=== PATIENT | female | born 1965 | race Caucasian/White ===

== ENCOUNTER 2016-08-06 10:36 | Emergency (ER) | payer BC ==
[2016-08-06] MEDS ORDERED: Ipratropium 0.5MG/2.5ML NEB* 0.5 MG/2.5 ML NEB.SOLN INH ONE (10:38)
[2016-08-06] MEDS ORDERED: Albuterol 2.5 MG/3 ML NEB.SOL* (0.083%) INH ONE (10:38)
[2016-08-06] MEDS ORDERED: Albuterol/Ipratropium NEB.SOL* Albuterol 2.5 MG/Ipratropium 0.5 MG 3 ML ONE (10:42)
[2016-08-06 12:02] VITALS: BP 126/74
--- NOTE | 2016-08-06 12:50 | UC ---
Respiratory Complaint HPI - HPI Summary HPI Summary: 30 MINUTE ONSET OF SHORTNESS OF BREATH, WHEEZING COUGH. HAS COPD, HEAVY SMOKER. TRIED ALBUTEROL INHALER, WITH NO EFFECT - History of Current Complaint Chief Complaint: UCRespiratory Stated Complaint: SHORTNESS OF BREATH Time Seen by Provider: 08/06/16 10:49 Hx Obtained From: Patient Onset/Duration: Sudden Onset, Lasting Minutes, Still Present Timing: Constant Severity Currently: Severe Character: Cough: Nonproductive Alleviating Factors: Nothing Associated Signs And Symptoms: Positive: Wheezing, Hoarseness. Negative: Fever , Chills, Pleuritic Chest Pain, Calf Pain, Calf Swelling, URI, Nasal Congestion , Sinus Discomfort - Risk Factors Pulmonary Embolism Risk Factors: Smoking Cardiac Risk Factors: Smoking Pseudomonas Risk Factors: Negative Tuberculosis Risk Factors: Negative - Allergies/Home Medications Allergies/Adverse Reactions: Allergies Allergy/AdvReac Type Severity Reaction Status Date / Time No Known Allergies Allergy Verified 01/11/16 15:55 PMH/Surg Hx/FS Hx/Imm Hx Previously Healthy: Yes Endocrine History Of: Reports: Diabetes - Type 1 Denies: Thyroid Disease Cardiovascular History Of: Reports: Hypertension Denies: Cardiac Disorders Respiratory History Of: Reports: COPD, Asthma, Bronchitis - YEARLY GI/ History Of: Reports: Ulcer Cancer History Of: Denies: Breast Cancer - Surgical History Surgical History: Yes Surgery Procedure, Year, and Place: Skin graft 1975 [facility]. hysterectomy 2007 [facility]. RIGHT SHOULDER SURGERY 2009 [facility]. Bilateral Carpal tunnel, 2013. Shoulder 2014 - Family History Known Family History: Positive: Cardiac Disease, Hypertension, Diabetes - Social History Occupation: Employed Full-time Lives: With Family Alcohol Use: Weekly Alcohol Amount: 2-3 beers Substance Use Type: None Smoking Status (MU): Heavy Every Day Tobacco Smoker Type: Cigarettes Amount Used/How Often: 1/2 PPD Length of Time of Smoking/Using Tobacco: 20 - 30 years Have You Smoked in the Last Year: Yes Household Exposure Type: Cigarettes - Immunization History Most Recent Influenza Vaccination: 2016 Most Recent Tetanus Shot: unknown Most Recent Pneumonia Vaccination: never Review of Systems Constitutional: Negative Skin: Negative Eyes: Negative ENT: Negative Respiratory: Shortness Of Breath, Cough Cardiovascular: Negative Gastrointestinal: Negative Genitourinary: Negative Motor: Negative Neurovascular: Negative Musculoskeletal: Negative Neurological: Negative Psychological: Negative All Other Systems Reviewed And Are Negative: Yes Physical Exam Triage Information Reviewed: Yes Appearance: Well-Appearing, No Pain Distress, Well-Nourished Vital Signs: Initial Vital Signs Temp 97.9 F 08/06/16 11:55 Pulse 68 08/06/16 11:55 Resp 18 08/06/16 11:55 BP 126/74 08/06/16 11:55 Pulse Ox 98 08/06/16 11:55 Eye Exam: Normal Eyes: Positive: Conjunctiva Clear ENT Exam: Normal ENT: Positive: Normal ENT inspection, Hearing grossly normal, Pharynx normal, TMs normal Dental Exam: Normal Neck exam: Normal Neck: Positive: Supple, Nontender Respiratory: Positive: Normal breath sounds, No respiratory distress, No accessory muscle use, Wheezing Cardiovascular Exam: Normal Cardiovascular: Positive: RRR, No Murmur, Pulses Normal Abdominal Exam: Normal Abdomen Description: Positive: Nontender, No Organomegaly Musculoskeletal Exam: Normal Neurological Exam: Normal Psychological Exam: Normal Psychological: Positive: Normal Response To Family Skin Exam: Normal UC Diagnostic Evaluation - Laboratory O2 Sat by Pulse Oximetry: 98 Re-Evaluation - Re-Evaluation Second Eval Re-Evaluation Time: 11:40 Change: Improved Comment: IMPROVED AFTER ADMINISTRATION OF DUONEB Respiratory Course/Dx - Differential Dx/Diagnosis Differential Diagnosis/HQI/PQRI: Asthma, Exacerbation Of COPD, Laryngitis, Sinusitis Provider Diagnoses: ASTHMA EXACERBATION. COPD. TOBACCO ABUSE Discharge - Discharge Plan Condition: Stable Disposition: HOME Patient Education Materials: Asthma (ED), How to Stop Smoking (ED), COPD ( Chronic Obstructive Pulmonary Disease) (ED) Referrals: Dayanara RIGGS,Francheska Frey [Primary Care Provider] -
== END 2016-08-06 11:55 | disposition home or self-care (01) ==
LOC: UCEAST 10:36
DX: J45.901 Unspecified asthma with (acute) exacerbation (principal); J44.9 Chronic obstructive pulmonary disease, unspecified; E10.9 Type 1 diabetes mellitus without complications; Z96.41 Presence of insulin pump (external) (internal); F17.210 Nicotine dependence, cigarettes, uncomplicated
CPT/HCPCS: 99211; A9270-GY; G0463

== ENCOUNTER 2016-08-12 15:36 | Inpatient (IN) | payer BC ==
[2016-08-12] MEDS ORDERED: Ondansetron ODT TAB* 4 MG PO ONE (17:20)
[2016-08-12] MEDS ORDERED: NS 0.9% 1000 ML* 1,000 ML IV ONE (18:38)
[2016-08-12 18:46] LABS: Hematocrit 48 % (35-47); Hemoglobin 14.9 g/dl (12.0-16.0); Mean Corpuscular HGB Conc 31 g/dl (31-36); Mean Corpuscular Hemoglobin 29 pg (27-31); Mean Corpuscular Volume 95 fL (80-97); Mean Platelet Volume 11 um3 (7.4-10.4); Red Blood Count 5.07 10^6/ul (4.0-5.4); Red Cell Distribution Width 16 % (10.5-15)
[2016-08-12 18:48] LABS: Urine Bilirubin Negative (Negative); Urine Glucose 3+(>=500 mg/dL) (Negative); Urine Nitrite Negative (Negative)
[2016-08-12 18:57] LABS: Albumin 4.4 g/dL (3.2-5.2); Calcium 9.4 mg/dL (8.6-10.3); EGFR African American 74.6 (>60); Globulin 3.8 g/dL (2-4); Total Bilirubin 0.6 mg/dL (0.2-1.0); Total Protein 8.2 g/dL (6.4-8.9)
[2016-08-12 19:21] LABS: Potassium 5.4 mmol/L (3.5-5.0)
[2016-08-12] MEDS ORDERED: NS 0.9% 1000 ML* 3,000 ML IV ONE (19:28)
[2016-08-12] MEDS ORDERED: Ondansetron INJ* 2 MG/ML VIAL IV ONE (19:28)
[2016-08-12] MEDS ORDERED: Insulin REGULAR(*) 100 UNITS in NS 0.9% 100 ML* 100 ML IVPB ONE (19:29)
[2016-08-12 19:42] LABS: BUN/Creatinine Ratio 18.5 (8-20); EGFR African American 82.1 (>60); EGFR Non-African American 63.9 (>60)
[2016-08-12 19:44] LABS: Potassium 5.5 mmol/L (3.5-5.0)
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
[2016-08-12] MEDS ORDERED: Ondansetron INJ* 2 MG/ML VIAL IV PRN (20:25)
[2016-08-12] MEDS ORDERED: Albuterol 2.5 MG/3 ML NEB.SOL* (0.083%) INH PRN (20:25)
[2016-08-12] MEDS ORDERED: Melatonin (NF) 3 MG TAB PO PRN (20:25)
[2016-08-12] MEDS ORDERED: Nicotine Inhaler* 10 MG AMP INH PRN (20:25)
[2016-08-12] MEDS ORDERED: PROCHLORPERAZINE INJ 5 MG/ML 2 ML VIAL IV PRN (20:25)
[2016-08-12] MEDS ORDERED: Acetaminophen TAB* 325 MG PO PRN (20:25)
[2016-08-12] MEDS ORDERED: Insulin REGULAR(*) 1 UNITS UNIT IV PUSH ONE (20:49)
--- NOTE | 2016-08-12 20:56 | RAD ---
INDICATION: Cough COMPARISON: January 11, 2016 TECHNIQUE: An AP portable view obtained at 2046 hours is submitted. FINDINGS: Bones/Soft Tissues: There are no acute bony findings. Cardiomediastinal: The cardiomediastinal silhouette is normal. Lungs: There are no infiltrates. Pleura: There are no pleural effusions. Other: None IMPRESSION: NO ACTIVE DISEASE.
[2016-08-12] MEDS: Mometasone/Formoter 200/5 MDI INH SCH (21:00)
[2016-08-12] MEDS ORDERED: Insulin REGULAR(*) 100 UNITS in NS 0.9% 100 ML* 100 ML IV SCH (22:00)
[2016-08-12] MEDS ORDERED: Dextrose 50% Syringe 50 ML* 25 GM/50 ML SYRINGE IV PUSH ONE (22:40)
[2016-08-12] MEDS ORDERED: Dextrose 50% Syringe 50 ML* 25 GM/50 ML SYRINGE ONE (22:59)
[2016-08-12] MEDS: Pantoprazole IV* 40 MG IV SCH (23:27)
[2016-08-12] MEDS: Docusate CAP* 100 MG PO SCH (23:27)
[2016-08-12 23:30] LABS: Venous Bicarbonate HCO3 8.9 mmol/L (24-28)
[2016-08-12 23:54] LABS: BUN/Creatinine Ratio 18.5 (8-20); Calcium 8.5 mg/dL (8.6-10.3); EGFR African American 95.1 (>60); Potassium 4.2 mmol/L (3.5-5.0)
[2016-08-13] MEDS ORDERED: D5W 1/2 NS KCl 20 Meq 1000 ML* 1,000 ML IV PRN (00:45)
[2016-08-13] MEDS: Benzonatate CAP* 100 MG PO PRN (00:56)
[2016-08-13] MEDS: Acetaminoph/Cod 120/12 mg LIQ* 5 ML UDC PO PRN ×2 (02:30→16:48)
[2016-08-13 04:48] LABS: Venous Bicarbonate HCO3 14.4 mmol/L (24-28)
[2016-08-13 05:00] LABS: BUN/Creatinine Ratio 13.5 (8-20); Calcium 7.7 mg/dL (8.6-10.3); EGFR African American 105.6 (>60); EGFR Non-African American 82.1 (>60)
[2016-08-13] MEDS ORDERED: D5W NS 0.9% 20Meq KCL 1000 ML* 1,000 ML IV SCH ×2 (05:00→08:56)
[2016-08-13 05:08] LABS: Potassium 4.3 mmol/L (3.5-5.0)
[2016-08-13] MEDS: Pantoprazole IV* 40 MG IV SCH (08:21)
[2016-08-13] MEDS: Heparin VIAL(*) 5000 UNITS/ML VIAL (FIVE THOUSAND) SUBCUT SCH ×3 (08:22→22:25)
[2016-08-13 09:00] LABS: BUN/Creatinine Ratio 12.7 (8-20); Blood Urea Nitrogen 7 mg/dL (6-24); Calcium 7.1 mg/dL (8.6-10.3); Chloride 112 mmol/L (101-111); EGFR African American 148.7 (>60); EGFR Non-African American 115.6 (>60); Glucose 139 mg/dL (70-100); Sodium 133 mmol/L (133-145)
[2016-08-13] MEDS ORDERED: Spiriva Inhaler DEVICE* 1 EACH DEVICE INH ONE (09:00)
[2016-08-13] MEDS ORDERED: Pneumococcal *Vac Polyvalent 0.5 ML VIAL IM ONE (09:00)
[2016-08-13] MEDS: Mometasone/Formoter 200/5 MDI INH SCH ×2 (09:09→21:33)
[2016-08-13] MEDS: Tiotropium CAP.INH* CAP.INH/18 MCG (USE ORDER SET !) INH SCH (09:09)
[2016-08-13 09:13] LABS: CO2 Carbon Dioxide 14 mmol/L (22-32)
[2016-08-13] MEDS: Docusate CAP* 100 MG PO SCH ×2 (09:24→22:24)
--- NOTE | 2016-08-13 11:37 | RAD ---
INDICATION: Cough COMPARISON: Most recent comparison chest x-rays dated August 12, 2016 TECHNIQUE: PA and lateral views of the chest were obtained. FINDINGS: The heart and mediastinum are normal in size and contour. The lungs are grossly clear. There is no evidence of large pleural effusion. Visualized bones are normal for the patient's age. There is no radiographic evidence of free air beneath the diaphragm IMPRESSION: No radiographic evidence of acute cardiopulmonary disease.
[2016-08-13 13:00] LABS: BUN/Creatinine Ratio 12.3 (8-20); Calcium 7.6 mg/dL (8.6-10.3); EGFR African American 142.7 (>60); Potassium 3.6 mmol/L (3.5-5.0)
[2016-08-13] MEDS ORDERED: Dextrose 50% Syringe 50 ML* 25 GM/50 ML SYRINGE IV PUSH PRN (13:14)
[2016-08-13] MEDS ORDERED: Insulin LISPRO* 1 UNITS UNIT SUBCUT ONE (13:14)
[2016-08-13] MEDS ORDERED: Insulin LISPRO* FOR INSULIN PUMP SUBCUT SCH (14:00)
[2016-08-13] MEDS ORDERED: [UNRECOGNIZED DRUG - SUPPLY] SUBCUT SCH (14:00)
[2016-08-13] MEDS ORDERED: Insulin LISPRO* 1 UNITS UNIT SUBCUT SCH (14:00)
--- NOTE | 2016-08-13 14:22 | PN ---
Subjective Date of Service: 08/13/16 Interval History: Pt c/o cough and poor appetite x 4 days. started to have N/V after her sugars were uncontrolled. She decided not to use insulin boluses despite increasing hyperglycemia due to no PO intake and being afraid to "bottom down" Objective Active Medications: Acetaminophen (Tylenol Tab*) 650 mg PO Q6H PRN PRN Reason: FEVER/PAIN Acetaminophen/Codeine Phosphate (Tylenol/Codeine 120/12 Liq*) 5 ml PO Q4H PRN PRN Reason: COUGH Albuterol (Ventolin 2.5 Mg/3 Ml Neb.Laxmi*) 2.5 mg INH Q2H PRN PRN Reason: SOB/WHEEZING Benzonatate (Tessalon Cap*) 200 mg PO Q8H PRN PRN Reason: NAUSEA/VOMITING Last Admin: 08/13/16 00:56 Dose: 200 mg Dextrose (D50w Syringe 50 Ml*) 12.5 gm IV PUSH .FOR FS < 60 - SS PRN PRN Reason: FS < 60 Docusate Sodium (Colace Cap*) 200 mg PO BID [facility] Last Admin: 08/13/16 09:24 Dose: Not Given Heparin Sodium (Porcine) (Heparin Vial(*)) 5,000 units SUBCUT Q8HR [facility] Last Admin: 08/13/16 13:33 Dose: 5,000 units Lactated Ringer's (Lactated Ringers 1000 Ml Bag*) 1,000 mls @ 75 mls/hr IV PER RATE [facility] Last Admin: 08/13/16 13:31 Dose: 75 mls/hr Insulin Human Lispro (Humalog*) 1.5 units SUBCUT .SEE COMMENT [facility] PRN Reason: Protocol Insulin Human Lispro (Humalog*) 0 units SUBCUT Q4HR [facility] PRN Reason: Protocol Melatonin (Melatonin (Nf)) 3 mg PO BEDTIME PRN; Protocol PRN Reason: Sleep Mometasone Furoate/Formoterol Fumar (Dulera 200/5 Mdi*) 2 puff INH BID [facility] Last Admin: 08/13/16 09:09 Dose: 2 puff Nicotine (Nicotine Inhaler*) 10 mg INH Q2H PRN PRN Reason: CRAVING Ondansetron HCl (Zofran Inj*) 4 mg IV Q6H PRN PRN Reason: NAUSEA Pantoprazole Sodium (Protonix Iv*) 40 mg IV DAILY [facility] Last Admin: 08/13/16 08:21 Dose: 40 mg Prochlorperazine Edisylate (Compazine Inj*) 10 mg IV Q6H PRN PRN Reason: NAUSEA Last Admin: 08/13/16 08:22 Dose: 10 mg Tiotropium [place] (Spiriva Cap.Inh*) 1 cap INH DAILY [facility] Last Admin: 08/13/16 09:09 Dose: 1 cap Vital Signs 08/12/16 08/12/16 08/12/16 20:32 21:00 21:17 Temperature Pulse Rate 100 101 104 Respiratory 26 21 26 Rate Blood Pressure 131/60 116/47 (mmHg) O2 Sat by Pulse 100 100 100 Oximetry 08/12/16 08/12/16 08/12/16 21:20 21:23 21:33 Temperature 99.5 F Pulse Rate 87 113 Respiratory 26 20 Rate Blood Pressure 127/77 127/77 (mmHg) O2 Sat by Pulse 96 100 Oximetry 08/12/16 08/12/16 08/12/16 22:00 22:30 23:00 Temperature Pulse Rate 104 101 95 Respiratory 19 19 23 Rate Blood Pressure 136/72 132/61 128/64 (mmHg) O2 Sat by Pulse 100 100 100 Oximetry 08/12/16 08/13/16 08/13/16 23:30 00:00 00:36 Temperature Pulse Rate 94 93 Respiratory 19 18 22 Rate Blood Pressure 112/39 112/60 (mmHg) O2 Sat by Pulse 100 100 Oximetry 08/13/16 08/13/16 08/13/16 00:58 01:00 01:30 Temperature 99.3 F Pulse Rate 95 91 Respiratory 29 19 Rate Blood Pressure 113/56 123/59 (mmHg) O2 Sat by Pulse 99 99 Oximetry 08/13/16 08/13/16 08/13/16 02:00 02:30 03:00 Temperature Pulse Rate 99 98 96 Respiratory 24 28 21 Rate Blood Pressure 115/65 124/69 118/77 (mmHg) O2 Sat by Pulse 99 98 99 Oximetry 08/13/16 08/13/16 08/13/16 03:30 04:00 05:00 Temperature Pulse Rate 83 84 Respiratory 23 36 23 Rate Blood Pressure 122/63 117/62 118/66 (mmHg) O2 Sat by Pulse 98 100 Oximetry 01/08/13/16 08/13/16 05:30 05:59 06:00 Temperature Pulse Rate 82 78 Respiratory 16 25 30 Rate Blood Pressure 119/73 (mmHg) O2 Sat by Pulse 100 98 Oximetry 08/13/16 08/13/16 08/13/16 06:30 06:56 07:00 Temperature Pulse Rate 79 76 Respiratory 20 30 23 Rate Blood Pressure 120/60 116/63 (mmHg) O2 Sat by Pulse 99 97 Oximetry 08/13/16 08/13/16 08/13/16 07:29 07:30 08:00 Temperature 99.3 F Pulse Rate 75 79 Respiratory 21 14 Rate Blood Pressure 121/62 118/57 (mmHg) O2 Sat by Pulse 98 98 Oximetry 08/13/16 08/13/16 08/13/16 08:30 09:00 09:10 Temperature Pulse Rate 83 79 79 Respiratory 14 20 20 Rate Blood Pressure 100/46 114/60 (mmHg) O2 Sat by Pulse 98 97 97 Oximetry 08/13/16 08/13/16 08/13/16 09:30 10:00 10:30 Temperature Pulse Rate 80 78 80 Respiratory 25 23 23 Rate Blood Pressure 109/61 101/55 107/58 (mmHg) O2 Sat by Pulse 97 96 94 Oximetry 08/13/16 08/13/16 08/13/16 10:53 11:20 11:25 Temperature 98.8 F Pulse Rate 88 Respiratory 12 17 Rate Blood Pressure (mmHg) O2 Sat by Pulse 99 Oximetry 08/13/16 08/13/16 08/13/16 12:00 13:00 13:31 Temperature Pulse Rate 77 78 92 Respiratory 21 21 19 Rate Blood Pressure 82/42 (mmHg) O2 Sat by Pulse 98 96 99 Oximetry 08/13/16 08/13/16 08/13/16 13:35 13:58 13:59 Temperature Pulse Rate 91 85 Respiratory 16 20 14 Rate Blood Pressure 124/57 (mmHg) O2 Sat by Pulse 98 99 Oximetry Oxygen Devices in Use Now: None Appearance: 51 yo F in nAd, aAOx3 Eyes: No Scleral Icterus, PERRLA Ears/Nose/Mouth/Throat: NL Teeth, Lips, Gums, Mucous Membranes Moist Neck: NL Appearance and Movements; NL JVP, Trachea Midline Respiratory: Symmetrical Chest Expansion and Respiratory Effort, - - coarse breath sounds at b/l upper lobes Cardiovascular: NL Sounds; No Murmurs; No JVD, RRR Abdominal: NL Sounds; No Tenderness; No Distention, No Hepatosplenomegaly Lymphatic: No Cervical Adenopathy Extremities: No Edema, No Clubbing, Cyanosis Skin: No Rash or Ulcers, No Nodules or Sclerosis Neurological: Alert and Oriented x 3, NL Muscle Strength and Tone Result Diagrams: 08/12/16 17:05 08/13/16 12:30 Additional Lab and Data: Lab Results 08/12/16 08/12/16 08/12/16 Range/Units 17:05 17:05 17:57 WBC 10.0 (3.5-10.8) 10^3/ul RBC 5.07 (4.0-5.4) 10^6/ul Hgb 14.9 (12.0-16.0) g/dl Hct 48 H (35-47) % MCV 95 (80-97) fL MCH 29 (27-31) pg MCHC 31 (31-36) g/dl RDW 16 H (10.5-15) % Plt Count 174 (150-450) 10^3/ul MPV 11 H (7.4-10.4) um3 Sodium 128 L (133-145) mmol/L Potassium 5.4 H (3.5-5.0) mmol/L Chloride 94 L (101-111) mmol/L Carbon Dioxide 9 L* (22-32) mmol/L Anion Gap 25 H (2-11) mmol/L BUN 17 (6-24) mg/dL Creatinine 1.00 H (0.51-0.95) mg/dL Est GFR ( Amer) 74.6 (>60) Est GFR (Non-Af Amer) 58.0 (>60) BUN/Creatinine Ratio 17.0 (8-20) Glucose 450 H (70-100) mg/dL POC Glucose (mg/dL) (74-106) mg/dL Calcium 9.4 (8.6-10.3) mg/dL Total Bilirubin 0.60 (0.2-1.0) mg/dL AST 56 H (13-39) U/L ALT 49 (7-52) U/L Alkaline Phosphatase 62 (34-104) U/L Total Protein 8.2 (6.4-8.9) g/dL Albumin 4.4 (3.2-5.2) g/dL Globulin 3.8 (2-4) g/dL Albumin/Globulin Ratio 1.2 (1-3) Urine Color Urine Appearance Urine pH (5-9) Ur Specific [place] (1.010-1.030) Urine Protein (Negative) Urine Ketones (Negative) Urine Blood (Negative) Urine Nitrate (Negative) Urine Bilirubin (Negative) Urine Urobilinogen (Negative) Ur Leukocyte Esterase (Negative) Urine Glucose (Negative) Influenza A (Rapid) Negative (Negative) Influenza B (Rapid) Negative (Negative) 08/12/16 08/12/16 Range/Units 18:35 19:02 WBC (3.5-10.8) 10^3/ul RBC (4.0-5.4) 10^6/ul Hgb (12.0-16.0) g/dl Hct (35-47) % MCV (80-97) fL MCH (27-31) pg MCHC (31-36) g/dl RDW (10.5-15) % Plt Count (150-450) 10^3/ul MPV (7.4-10.4) um3 Sodium (133-145) mmol/L Potassium (3.5-5.0) mmol/L Chloride (101-111) mmol/L Carbon Dioxide (22-32) mmol/L Anion Gap (2-11) mmol/L BUN (6-24) mg/dL Creatinine (0.51-0.95) mg/dL Est GFR ( Amer) (>60) Est GFR (Non-Af Amer) (>60) BUN/Creatinine Ratio (8-20) Glucose (70-100) mg/dL POC Glucose (mg/dL) > 444 H* (74-106) mg/dL Calcium (8.6-10.3) mg/dL Total Bilirubin (0.2-1.0) mg/dL AST (13-39) U/L ALT (7-52) U/L Alkaline Phosphatase (34-104) U/L Total Protein (6.4-8.9) g/dL Albumin (3.2-5.2) g/dL Globulin (2-4) g/dL Albumin/Globulin Ratio (1-3) Urine Color Straw Urine Appearance Clear Urine pH 5.0 (5-9) Ur Specific [place] 1.014 (1.010-1.030) Urine Protein Negative (Negative) Urine Ketones 2+ H (Negative) Urine Blood Negative (Negative) Urine Nitrate Negative (Negative) Urine Bilirubin Negative (Negative) Urine Urobilinogen Negative (Negative) Ur Leukocyte Esterase Negative (Negative) Urine Glucose 3+(>=500 mg/dl) H (Negative) Influenza A (Rapid) (Negative) Influenza B (Rapid) (Negative) Microbiology and Other Data: Microbiology 08/13/16 02:00 Nasal Screen MRSA (PCR)(JASON) - Final Nasal Mrsa Negative Assess/Plan/Problems-Billing Assessment: 51 yo F with h/o tobacco use, DM1, hepatitis C presents with DKA - Patient Problems (1) URI (upper respiratory infection) Comment: suspect viral bonchitis. No fever or leukocytosis to suggest bacterial infection supportive tx (2) DKA (diabetic ketoacidoses) Comment: Anion gap closed on insulin gtt and with fluids Transitioned from insulin gtt to patient's own insulin pump Pt's pump delivers 1.5U/hr decrease FSG to q4hr DM education ordered (3) HTN (hypertension) Comment: holding Valsartan, currently normotensive (4) Dehydration Comment: Resolving. will switch IVF to LR (5) DVT prophylaxis Comment: heparin sc
[2016-08-13] MEDS: Insulin LISPRO* 1 UNITS UNIT SUBCUT SCH ×2 (17:17→22:24)
[2016-08-13] MEDS: Fluticasone NASAL SPRAY 50MCG* 16 gm SPRAY BTL BOTH NARES SCH (19:09)
[2016-08-14] MEDS: Insulin LISPRO* 1 UNITS UNIT SUBCUT SCH ×2 (02:02→06:36)
[2016-08-14] MEDS: Benzonatate CAP* 100 MG PO PRN (03:19)
[2016-08-14 06:18] LABS: Hematocrit 35 % (35-47); Hemoglobin 11.4 g/dl (12.0-16.0)
[2016-08-14 06:19] LABS: Comments Flag Yes
[2016-08-14] MEDS: Heparin VIAL(*) 5000 UNITS/ML VIAL (FIVE THOUSAND) SUBCUT SCH ×2 (06:36→15:36)
[2016-08-14 06:41] LABS: BUN/Creatinine Ratio 14.9 (8-20); Calcium 8.4 mg/dL (8.6-10.3); EGFR African American 178.3 (>60); EGFR Non-African American 138.6 (>60); Magnesium 1.7 mg/dL (1.9-2.7); Potassium 3.3 mmol/L (3.5-5.0)
[2016-08-14] MEDS ORDERED: Magnesium Sulfate 2 GM IV* 2 GM/50 ML BAG IVPB ONE (09:16)
[2016-08-14] MEDS: Tiotropium CAP.INH* CAP.INH/18 MCG (USE ORDER SET !) INH SCH (09:50)
[2016-08-14] MEDS: Mometasone/Formoter 200/5 MDI INH SCH (09:50)
[2016-08-14] MEDS ORDERED: Potassium Chloride LIQUID* 20 MEQ PACKET PO ONE (10:00)
[2016-08-14] MEDS: Docusate CAP* 100 MG PO SCH (10:18)
[2016-08-14] MEDS: Fluticasone NASAL SPRAY 50MCG* 16 gm SPRAY BTL BOTH NARES SCH ×2 (10:18→10:20)
[2016-08-14] MEDS: Pantoprazole IV* 40 MG IV SCH (10:18)
[2016-08-14] MEDS ORDERED: Insulin LISPRO* 1 UNITS UNIT SUBCUT SCH (11:30)
[2016-08-14 12:13] VITALS: BP 165/78
--- NOTE | 2016-08-15 07:27 | DS ---
DISCHARGE SUMMARY: DATE OF ADMISSION: 08/12/16 DATE OF DISCHARGE: 08/14/16 PRIMARY CARE PROVIDER: MARKUS Griffiths DISCHARGE DIAGNOSES: 1. Acute diabetic ketoacidosis. 2. Upper respiratory infection, most likely due to viral syndrome. SECONDARY DIAGNOSES: 1. History of diabetes type 1, on insulin pump. 2. Hypertension. 3. Chronic hepatitis C. MEDICATIONS: At discharge include: 1. Insulin infusion pump at 1.5 units subcutaneously hourly. 2. Insulin regular boluses as per sliding scale parameters. 3. Vitamin D3 2000 units daily. 4. Singulair 10 mg daily. 5. Valsartan 80 mg daily. 6. Levocetirizine 5 mg daily. 7. Ferrous sulfate 325 mg b.i.d. 8. Albuterol nebulizer 1 neb every 4 hours p.r.n. wheezing. LABORATORY DATA AND STUDIES PERFORMED DURING THE HOSPITAL STAY: Included on : hemoglobin of 11.4 and hematocrit of 35. Sodium 138, potassium 3.3, chloride 110, carbon dioxide 18, BUN 7, creatinine 0.47, magnesium 1.7, and calcium 8.4. Influenza rapid test A and B were negative. Urinalysis; positive for ketones and glucose. Blood cultures obtained on admission were negative to the day of discharge. Chest x-ray obtained on 08/13/16, impression: "No radiographic evidence of acute pulmonary disease." HOSPITALIZATION COURSE: Conchita Washington is a 51-year-old female with a history of diabetes type 1, on insulin pump. The patient also is a current smoker. She had been bothered by cough for the past couple of weeks. She came into the hospital after she noted her sugars were uncontrolled. Apparently, the patient felt so poorly with her upper respiratory infection that she had no appetite. Due to that that she did not feel like eating, she decided not to bolus her with insulin as per required and recommended parameters due to her "not eating" and due to her being afraid of "bottoming down." She presented with DKA after she developed nausea and vomiting. She was also markedly dehydrated. She was admitted to the intensive care unit and placed on insulin pump. Gradually, she improved to the point that her anion gap was closed and she was able to be placed back on her insulin pump. Apparently, her insulin pump did not appear to be malfunctioning, but the patient did change the site of injection during her admission. She underwent a diabetic education consult. It appears that the patient's upper respiratory infection symptom is most likely viral. She never appeared toxic. She had been afebrile and she did not have leukocytosis. Due to that, nebulizers were continued. The patient was not prescribed antibiotics at discharge. She is recommended to follow up with her primary care provider in 4 to 7 days after discharge. PHYSICAL EXAMINATION: Vital signs: Blood pressure of 165/78, heart rate of 71 and regular, respiratory rate 16, oxygen saturation 100% on room air, and temperature 97.3. General: The patient is a very pleasant 51-year-old female who is in no acute distress. Alert, awake, and oriented x3. HEENT: Head: Atraumatic, normocephalic. Eyes: Pupils equal, reactive to light and accommodation. Oropharynx clear. Mucosa moist. Neck: Supple. No JVD, no bruit bilaterally. Respiratory: Clear to auscultation bilaterally. Cardiovascular: Regular rate and rhythm. No murmur. Abdomen: Soft, nontender. Bowel sounds present in all 4 quadrants. Extremities: There is no edema. Pulses present 2+ bilaterally. No clubbing or cyanosis. Neuro Evaluation: Speech clear. Cranial nerves II through XII grossly intact. Motor strength is 5/5 bilaterally. Please note that the patient was educated and counseled strongly not to smoke anymore. She has nicotine patches at home that she can use. Please note this is a short summary of the patient's hospital stay. Please refer to further medical records for further details. TIME SPENT: Approximately 35 minutes was spent on the patient's discharge. CC: MARKUS Griffiths * [id number]/[id number] #: [id number]
--- NOTE | 2016-08-16 23:30 | ED ---
Marcela Spear Janilya, scribed for Richmond Leon MD on 08/12/16 at 1938 . Complex/Multi-Sys Presentation - HPI Summary HPI Summary: A 51 y/o female came in to [facility] presenting w/ a gradual onset of constant weakness and n/v/d starting today. Pt states she woke up "feeling a little different". Pt also reports coughing, for which she takes medicine. Pt denies CP. PMHx DM, for which she takes insulin. - History Of Current Complaint Chief Complaint: EDGeneral Time Seen by Provider: 08/12/16 17:18 Hx Obtained From: Patient Onset/Duration: Gradual Onset Timing: Constant Severity Currently: Moderate Severity Initially: Moderate Associated Signs And Symptoms: Positive: Weakness, Cough, Nausea, Vomiting, Diarrhea. Negative: Chest Pain - Allergies/Home Medications Allergies/Adverse Reactions: Allergies Allergy/AdvReac Type Severity Reaction Status Date / Time No Known Allergies Allergy Verified 08/12/16 15:39 PMH/Surg Hx/FS Hx/Imm Hx Endocrine/Hematology History: Reports: Hx Diabetes - Type 1 Denies: Hx Thyroid Disease Cardiovascular History: Reports: Hx Hypertension Respiratory History: Reports: Hx Asthma, Hx Chronic Obstructive Pulmonary Disease (COPD) GI History: Reports: Hx Ulcer Musculoskeletal History: Reports: Hx Orthopedic Injury Sensory History: Denies: Hx Contacts or Glasses, Hx Hearing Aid Opthamlomology History: Denies: Hx Contacts or Glasses - Cancer History Hx Chemotherapy: No Hx Radiation Therapy: No - Surgical History Surgery Procedure, Year, and Place: Skin graft 1975 [place]. hysterectomy 2007 [facility]OULDER SURGERY 2009 [facility] Bilateral Carpal tunnel, 2013. Shoulder 2014 Hx Anesthesia Reactions: No - Immunization History Date of Tetanus Vaccine: 2016 Date of Influenza Vaccine: 04/18/15 Infectious Disease History: Yes Infectious Disease History: Reports: Hx Hepatitis - Hepatitis C, Hx Tuberculosis - POS PPD, neg blood test Denies: Hx Clostridium Difficile, Hx Human Immunodeficiency Virus (HIV), Hx of Known/Suspected MRSA, Hx Shingles, Hx Known/Suspected VRE, Hx Known/ Suspected VRSA, History Other Infectious Disease, Traveled Outside the [place] in Last 30 Days - Family History Known Family History: Positive: Cardiac Disease, Hypertension, Diabetes - Social History Alcohol Use: Weekly Alcohol Amount: 2-3 beers Hx Substance Use: No Substance Use Type: Reports: None Hx Tobacco Use: Yes Smoking Status (MU): Heavy Every Day Tobacco Smoker Type: Cigarettes Amount Used/How Often: 1/2 PPD Length of Time of Smoking/Using Tobacco: 20 - 30 years Have You Smoked in the Last Year: Yes Review of Systems Negative: Fever, Chills Negative: Sore Throat Negative: Chest Pain Positive: Cough. Negative: Shortness Of Breath Positive: Vomiting, Diarrhea, Nausea Negative: dysuria, hematuria Negative: Myalgia, Edema Negative: Rash All Other Systems Reviewed And Are Negative: Yes Physical Exam - Summary Physical Exam Summary: Constitutional: Well-developed, Well-nourished, Alert. (-) Distressed Skin: Warm, Dry HENT: Normocephalic; Atraumatic; Dry mucous membrane Eyes: Conjunctiva normal Neck: Musculoskeletal ROM normal neck. (-) JVD, (-) Stridor, (-) Tracheal deviation Cardio: Rhythm regular, rate normal, Heart sounds normal; Intact distal pulses; The pedal pulses are 2+ and symmetric. Radial pulses are 2+ and symmetric. (-) Murmur, Pulmonary/Chest wall: Effort normal. (-) Respiratory distress, (-) Wheezes, (-) Rales, (+) crackles Abd: Soft, (-) Tenderness, (-) Distension, (-) Guarding, (-) Rebound Musculoskeletal: (-) Edema Lymph: (-) Cervical adenopathy Neuro: Alert, Oriented x3 Psych: Mood and affect Normal Triage Information Reviewed: Yes Vital Signs On Initial Exam: Initial Vitals Temp Pulse Resp BP Pulse Ox 98.1 F 96 18 119/54 100 08/12/16 15:39 08/12/16 15:39 08/12/16 15:39 08/12/16 15:39 08/12/16 15:39 Vital Signs Reviewed: Yes - [place] Coma Scale Coma Scale Total: 15 Diagnostics - Vital Signs Vital Signs Temp Pulse Resp BP Pulse Ox 08/12/16 19:00 97 25 128/58 100 08/12/16 18:48 120/56 08/12/16 15:39 98.1 F 96 18 119/54 100 - Laboratory Lab Results: Lab Results 08/12/16 08/12/16 08/12/16 Range/Units 17:05 17:05 17:57 WBC 10.0 (3.5-10.8) 10^3/ul RBC 5.07 (4.0-5.4) 10^6/ul Hgb 14.9 (12.0-16.0) g/dl Hct 48 H (35-47) % MCV 95 (80-97) fL MCH 29 (27-31) pg MCHC 31 (31-36) g/dl RDW 16 H (10.5-15) % Plt Count 174 (150-450) 10^3/ul MPV 11 H (7.4-10.4) um3 Sodium 128 L (133-145) mmol/L Potassium 5.4 H (3.5-5.0) mmol/L Chloride 94 L (101-111) mmol/L Carbon Dioxide 9 L* (22-32) mmol/L Anion Gap 25 H (2-11) mmol/L BUN 17 (6-24) mg/dL Creatinine 1.00 H (0.51-0.95) mg/dL Est GFR ( Amer) 74.6 (>60) Est GFR (Non-Af Amer) 58.0 (>60) BUN/Creatinine Ratio 17.0 (8-20) Glucose 450 H (70-100) mg/dL POC Glucose (mg/dL) (74-106) mg/dL Calcium 9.4 (8.6-10.3) mg/dL Total Bilirubin 0.60 (0.2-1.0) mg/dL AST 56 H (13-39) U/L ALT 49 (7-52) U/L Alkaline Phosphatase 62 (34-104) U/L Total Protein 8.2 (6.4-8.9) g/dL Albumin 4.4 (3.2-5.2) g/dL Globulin 3.8 (2-4) g/dL Albumin/Globulin Ratio 1.2 (1-3) Urine Color Urine Appearance Urine pH (5-9) Ur Specific [place] (1.010-1.030) Urine Protein (Negative) Urine Ketones (Negative) Urine Blood (Negative) Urine Nitrate (Negative) Urine Bilirubin (Negative) Urine Urobilinogen (Negative) Ur Leukocyte Esterase (Negative) Urine Glucose (Negative) Influenza A (Rapid) Negative (Negative) Influenza B (Rapid) Negative (Negative) 08/12/16 08/12/16 Range/Units 18:35 19:02 WBC (3.5-10.8) 10^3/ul RBC (4.0-5.4) 10^6/ul Hgb (12.0-16.0) g/dl Hct (35-47) % MCV (80-97) fL MCH (27-31) pg MCHC (31-36) g/dl RDW (10.5-15) % Plt Count (150-450) 10^3/ul MPV (7.4-10.4) um3 Sodium (133-145) mmol/L Potassium (3.5-5.0) mmol/L Chloride (101-111) mmol/L Carbon Dioxide (22-32) mmol/L Anion Gap (2-11) mmol/L BUN (6-24) mg/dL Creatinine (0.51-0.95) mg/dL Est GFR ( Amer) (>60) Est GFR (Non-Af Amer) (>60) BUN/Creatinine Ratio (8-20) Glucose (70-100) mg/dL POC Glucose (mg/dL) > 444 H* (74-106) mg/dL Calcium (8.6-10.3) mg/dL Total Bilirubin (0.2-1.0) mg/dL AST (13-39) U/L ALT (7-52) U/L Alkaline Phosphatase (34-104) U/L Total Protein (6.4-8.9) g/dL Albumin (3.2-5.2) g/dL Globulin (2-4) g/dL Albumin/Globulin Ratio (1-3) Urine Color Straw Urine Appearance Clear Urine pH 5.0 (5-9) Ur Specific [place] 1.014 (1.010-1.030) Urine Protein Negative (Negative) Urine Ketones 2+ H (Negative) Urine Blood Negative (Negative) Urine Nitrate Negative (Negative) Urine Bilirubin Negative (Negative) Urine Urobilinogen Negative (Negative) Ur Leukocyte Esterase Negative (Negative) Urine Glucose 3+(>=500 mg/dl) H (Negative) Influenza A (Rapid) (Negative) Influenza B (Rapid) (Negative) Result Diagrams: 08/12/16 17:05 08/12/16 19:19 Lab Statement: Any lab studies that have been ordered have been reviewed, and results considered in the medical decision making process. - Radiology CXR Xray Interpretation: No Acute Changes - IMPRESSION: No active disease Radiology Interpretation Completed By: Radiologist - EKG 2047 Cardiac Rate: NL - 97 bpm EKG Rhythm: Sinus Rhythm EKG Interpretation: No ST elevation Complex Multi-Symp Course/Dx - Diagnoses Provider Diagnoses: DKA (diabetic ketoacidoses) - Physician Notifications Discussed Care Of Patient With: Dr. Beasley (ortho) at 2130: recommended single sugar-tong splint; no reduction necessary. - Critical Care Time Critical Care Time: 30-74 min - 45 mins Discharge - Discharge Plan Condition: Stable Disposition: ADMITTED TO [facility] The documentation as recorded by the Marcela jolley Janilya accurately reflects the service I personally performed and the decisions made by Carolyn merritt Jerry, MD.
== END 2016-08-14 17:15 | disposition home or self-care (01) | DRG 420 ==
LOC: ED 15:36 → ICU 20:00 → MED 08-13 18:39
PROVIDERS: ADMIT Hospitalist; ATTEND Internal Medicine
PROC: 3E0234Z Introduction of Serum, Toxoid and Vaccine into Muscle, Percutaneous Approach (ICD-10-PCS; principal; 2016-08-14)
DX: E10.10 Type 1 diabetes mellitus with ketoacidosis without coma (principal); I10 Essential (primary) hypertension; J45.909 Unspecified asthma, uncomplicated; J44.9 Chronic obstructive pulmonary disease, unspecified; Z90.710 Acquired absence of both cervix and uterus; Z82.49 Family history of ischemic heart disease and other diseases of the circulatory system; Z83.3 Family history of diabetes mellitus; F17.210 Nicotine dependence, cigarettes, uncomplicated; Z96.41 Presence of insulin pump (external) (internal); B18.2 Chronic viral hepatitis C; F10.10 Alcohol abuse, uncomplicated; Y90.9 Presence of alcohol in blood, level not specified; E86.0 Dehydration; J06.9 Acute upper respiratory infection, unspecified; Z79.4 Long term (current) use of insulin; Z23 Encounter for immunization
CPT/HCPCS: 36415; 71010; 71020; 80048; 80053; 81003; 82010; 82803; 82947; 83036; 83605; 83690; 83735; 84484; 85014; 85018; 85027; 87040; 87502; 87641; 90732; 93005; 94640; 94760; 96374; 99285; A9270-GY; J0780; J1644; J1815; J2405; J3475

== ENCOUNTER 2016-08-29 17:50 | Inpatient (IN) | payer BC ==
[2016-08-29] MEDS ORDERED: Insulin REGULAR(*) 100 UNITS in NS 0.9% 100 ML* 100 ML IVPB ONE (18:04)
[2016-08-29] MEDS ORDERED: Ondansetron INJ* 2 MG/ML VIAL IV ONE (18:04)
[2016-08-29] MEDS ORDERED: NS 0.9% 1000 ML* 3,000 ML IV ONE (18:04)
[2016-08-29 18:49] LABS: Hematocrit 36 % (35-47); Hemoglobin 11.1 g/dl (12.0-16.0); Mean Corpuscular HGB Conc 31 g/dl (31-36); Mean Corpuscular Hemoglobin 29 pg (27-31); Mean Corpuscular Volume 94 fL (80-97); Mean Platelet Volume 9 um3 (7.4-10.4); Red Cell Distribution Width 17 % (10.5-15); White Blood Count 17.3 10^3/ul (3.5-10.8)
[2016-08-29 18:58] LABS: Add Diff/Slide Review? Slide Review Added; Comments Flag Yes
[2016-08-29 19:00] LABS: Urine Bacteria 1+ (Absent); Urine Bilirubin Negative (Negative); Urine Glucose 3+(>=500 mg/dL) (Negative); Urine Nitrite Negative (Negative)
[2016-08-29 19:03] LABS: ALT 34 U/L (7-52); AST 45 U/L (13-39); Albumin 2.9 g/dL (3.2-5.2); Alkaline Phosphatase 66 U/L (34-104); BUN/Creatinine Ratio 36.7 (8-20); Blood Urea Nitrogen 22 mg/dL (6-24); C Reactive Protein < 1.00 mg/L (< 5.00); Calcium 6.9 mg/dL (8.6-10.3); Chloride 109 mmol/L (101-111); Creatine Kinase 25 U/L (10-223); EGFR African American 134.5 (>60); EGFR Non-African American 104.6 (>60); Globulin 2.6 g/dL (2-4); Glucose 482 mg/dL (70-100); Magnesium 1.5 mg/dL (1.9-2.7); Phosphorus 4.9 mg/dL (2.5-5.0); Sodium 136 mmol/L (133-145); Total Protein 5.5 g/dL (6.4-8.9)
--- NOTE | 2016-08-29 19:19 | RAD ---
INDICATION: Altered mental status with hyperglycemia COMPARISON: Most recent comparison chest x-rays dated August 13, 2016 TECHNIQUE: Single AP portable view of the chest was obtained. FINDINGS: Image quality is compromised due to the relative inferiority of a portable chest x-ray. The heart and mediastinum exhibit normal size and contour. The lungs are grossly clear. There is no evidence of a large pleural effusion. Visualized bones are normal for the patient's age. IMPRESSION: No radiographic evidence for acute cardiopulmonary abnormality on this portable chest x-ray.
[2016-08-29 19:24] LABS: Anion Gap 20.00001 mmol/L (2-11); CO2 Carbon Dioxide < 7 mmol/L (22-32)
--- NOTE | 2016-08-29 19:35 | ED ---
Miki Spear Karl, scribed for Bandar Jensen MD on 08/29/16 at 1807 . GI/ HPI - HPI Summary HPI Summary: 51 y/o F presents w/ c/o hyperglycemia, nausea, vomiting, and diarrhea since approx 09:25 this morning. Pt also reported a fever and dry mouth. Hx: Dm Type 1. - History of Current Complaint Stated Complaint: HIGH BLOOD SUGAR Hx Obtained From: Patient Onset/Duration: Started Hours Ago, Atraumatic, Still Present Timing: Constant Severity: Moderate Current Severity: Moderate Associated Signs and Symptoms: Positive: Nausea, Vomiting, Diarrhea, Fever Aggravating Factor(s): Nothing Alleviating Factor(s): Nothing - Additional Pertinent History Primary Care Physician: SILKE - Allergy/Home Medications Allergies/Adverse Reactions: Allergies Allergy/AdvReac Type Severity Reaction Status Date / Time No Known Allergies Allergy Verified 08/27/16 07:56 PMH/Surg Hx/FS Hx/Imm Hx Previously Healthy: No Endocrine/Hematology History: Reports: Hx Diabetes - Type 1 Denies: Hx Thyroid Disease Cardiovascular History: Reports: Hx Hypertension Respiratory History: Reports: Hx Asthma, Hx Chronic Obstructive Pulmonary Disease (COPD) GI History: Reports: Hx Ulcer Musculoskeletal History: Reports: Hx Orthopedic Injury Sensory History: Denies: Hx Contacts or Glasses, Hx Hearing Aid Opthamlomology History: Denies: Hx Contacts or Glasses - Cancer History Hx Chemotherapy: No Hx Radiation Therapy: No - Surgical History Surgery Procedure, Year, and Place: Skin graft 1975 [place]. hysterectomy 2007 [facility]. RIGHT SHOULDER SURGERY 2009 [facility]. Bilateral Carpal tunnel, 2013. Shoulder 2014 Hx Anesthesia Reactions: No - Immunization History Date of Tetanus Vaccine: 2015 Date of Influenza Vaccine: 04/18/15 Infectious Disease History: Reports: Hx Hepatitis - Hepatitis C, Hx Tuberculosis - POS PPD, neg blood test Denies: Hx Clostridium Difficile, Hx Human Immunodeficiency Virus (HIV), Hx of Known/Suspected MRSA, Hx Shingles, Hx Known/Suspected VRE, Hx Known/ Suspected VRSA, History Other Infectious Disease - Family History Known Family History: Positive: Cardiac Disease, Hypertension, Diabetes - Social History Alcohol Use: Weekly Alcohol Amount: 2-3 beers Hx Substance Use: No Substance Use Type: Reports: None Hx Tobacco Use: Yes Smoking Status (MU): Heavy Every Day Tobacco Smoker Type: Cigarettes Amount Used/How Often: 1/2 PPD Length of Time of Smoking/Using Tobacco: 20 - 30 years Have You Smoked in the Last Year: Yes Review of Systems Constitutional: Other - hyperglycemia Positive: Fever Eyes: Negative ENT: Other - dry mouth Cardiovascular: Negative Respiratory: Negative Positive: Vomiting, Diarrhea, Nausea Genitourinary: Negative Musculoskeletal: Negative Skin: Negative Neurological: Negative Psychological: Normal All Other Systems Reviewed And Are Negative: Yes Physical Exam - Summary Physical Exam Summary: VITAL SIGNS: Reviewed. GENERAL: Patient is a thin female who is lying comfortable in the stretcher. She seems to be very dehydrated.Patient is not in any acute respiratory distress. HEAD AND FACE: No signs of trauma. No ecchymosis, hematomas or skull depressions. No sinus tenderness. EYES: PERRLA, EOMI x 2, No injected conjunctiva, no nystagmus. EARS: Hearing grossly intact. Ear canals and tympanic membranes are within normal limits. MOUTH: Oropharynx within normal limits. NECK: Supple, trachea is midline, no adenopathy, no JVD, no carotid bruit, no c- spine tenderness, neck with full ROM. CHEST: Symmetric, no tenderness at palpation LUNGS: Clear to auscultation bilaterally. No wheezing or crackles. CVS: Regular rate and rhythm, S1 and S2 present, no murmurs or gallops appreciated. ABDOMEN: Soft, non-tender. No signs of distention. No rebound no guarding, and no masses palpated. Bowel sounds are normal. EXTREMITIES: FROM in all major joints, no edema, no cyanosis or clubbing. NEURO: Alert and oriented x 3. No acute neurological deficits. Speech is normal and follows commands. SKIN: Dry and warm Triage Information Reviewed: Yes Vital Signs On Initial Exam: Initial Vitals Temp Pulse Resp BP Pulse Ox 98 F 95 26 92/55 99 08/29/16 18:07 08/29/16 18:07 08/29/16 18:07 08/29/16 18:07 08/29/16 18:07 Vital Signs Reviewed: Yes Diagnostics - Vital Signs Vital Signs Temp Pulse Resp BP Pulse Ox 08/29/16 18:07 98 F 95 26 92/55 99 - Laboratory Lab Results: Lab Results 08/29/16 08/29/16 08/29/16 Range/Units 18:32 18:32 18:32 WBC 17.3 H (3.5-10.8) 10^3/ul RBC 3.80 L (4.0-5.4) 10^6/ul Hgb 11.1 L (12.0-16.0) g/dl Hct 36 (35-47) % MCV 94 (80-97) fL MCH 29 (27-31) pg MCHC 31 (31-36) g/dl RDW 17 H (10.5-15) % Plt Count 193 (150-450) 10^3/ul MPV 9 (7.4-10.4) um3 Neut % (Auto) 88.1 H (38-83) % Lymph % (Auto) 4.7 L (25-47) % [place] % (Auto) 6.5 (1-9) % Eos % (Auto) 0.1 (0-6) % Baso % (Auto) 0.6 (0-2) % Absolute Neuts (auto) 15.3 H (1.5-7.7) 10^3/ul Absolute Lymphs (auto) 0.8 L (1.0-4.8) 10^3/ul Absolute Monos (auto) 1.1 H (0-0.8) 10^3/ul Absolute Eos (auto) 0 (0-0.6) 10^3/ul Absolute Basos (auto) 0.1 (0-0.2) 10^3/ul Absolute Nucleated RBC 0 10^3/ul Nucleated RBC % 0 VBG pH (7.33-7.43) VBG pCO2 (41-51) mmHg VBG pO2 (35-45) mmHg VBG HCO3 (24-28) mmol/L VBG O2 Saturation (70-80) % VBG Base Excess (0-4) Sodium 136 (133-145) mmol/L Potassium 4.0 (3.5-5.0) mmol/L Chloride 109 (101-111) mmol/L Carbon Dioxide < 7 L* (22-32) mmol/L Anion Gap 20.63266 H (2-11) mmol/L BUN 22 (6-24) mg/dL Creatinine 0.60 (0.51-0.95) mg/dL Est GFR ( Amer) 134.5 (>60) Est GFR (Non-Af Amer) 104.6 (>60) BUN/Creatinine Ratio 36.7 H (8-20) Glucose 482 H (70-100) mg/dL Lactic Acid (0.5-2.0) mmol/L Calcium 6.9 L (8.6-10.3) mg/dL Phosphorus 4.9 (2.5-5.0) mg/dL Magnesium 1.5 L (1.9-2.7) mg/dL Total Bilirubin 0.40 (0.2-1.0) mg/dL AST 45 H (13-39) U/L ALT 34 (7-52) U/L Alkaline Phosphatase 66 (34-104) U/L Total Creatine Kinase 25 (10-223) U/L C-Reactive Protein < 1.00 (< 5.00) mg/L Total Protein 5.5 L (6.4-8.9) g/dL Albumin 2.9 L (3.2-5.2) g/dL Globulin 2.6 (2-4) g/dL Albumin/Globulin Ratio 1.1 (1-3) Urine Color Straw Urine Appearance Clear Urine pH 5.0 (5-9) Ur Specific [place] 1.014 (1.010-1.030) Urine Protein 1+(30 mg/dl) H (Negative) Urine Ketones 2+ H (Negative) Urine Blood 1+ H (Negative) Urine Nitrate Negative (Negative) Urine Bilirubin Negative (Negative) Urine Urobilinogen Negative (Negative) Ur Leukocyte Esterase Negative (Negative) Urine WBC (Auto) Absent (Absent) Urine RBC (Auto) Trace(0-2/hpf) (Absent) Ur Squamous Epith Cells Present H (Absent) Urine Bacteria 1+ H (Absent) Hyaline Casts Present H (Absent) Urine Glucose 3+(>=500 mg/dl) H (Negative) 08/29/16 08/29/16 Range/Units 18:32 18:32 WBC (3.5-10.8) 10^3/ul RBC (4.0-5.4) 10^6/ul Hgb (12.0-16.0) g/dl Hct (35-47) % MCV (80-97) fL MCH (27-31) pg MCHC (31-36) g/dl RDW (10.5-15) % Plt Count (150-450) 10^3/ul MPV (7.4-10.4) um3 Neut % (Auto) (38-83) % Lymph % (Auto) (25-47) % [place] % (Auto) (1-9) % Eos % (Auto) (0-6) % Baso % (Auto) (0-2) % Absolute Neuts (auto) (1.5-7.7) 10^3/ul Absolute Lymphs (auto) (1.0-4.8) 10^3/ul Absolute Monos (auto) (0-0.8) 10^3/ul Absolute Eos (auto) (0-0.6) 10^3/ul Absolute Basos (auto) (0-0.2) 10^3/ul Absolute Nucleated RBC 10^3/ul Nucleated RBC % VBG pH < 7.00 L (7.33-7.43) VBG pCO2 21 L (41-51) mmHg VBG pO2 65 H (35-45) mmHg VBG HCO3 5.0 L (24-28) mmol/L VBG O2 Saturation 88.7 H (70-80) % VBG Base Excess -25.3 L (0-4) Sodium (133-145) mmol/L Potassium (3.5-5.0) mmol/L Chloride (101-111) mmol/L Carbon Dioxide (22-32) mmol/L Anion Gap (2-11) mmol/L BUN (6-24) mg/dL Creatinine (0.51-0.95) mg/dL Est GFR ( Amer) (>60) Est GFR (Non-Af Amer) (>60) BUN/Creatinine Ratio (8-20) Glucose (70-100) mg/dL Lactic Acid 1.4 (0.5-2.0) mmol/L Calcium (8.6-10.3) mg/dL Phosphorus (2.5-5.0) mg/dL Magnesium (1.9-2.7) mg/dL Total Bilirubin (0.2-1.0) mg/dL AST (13-39) U/L ALT (7-52) U/L Alkaline Phosphatase (34-104) U/L Total Creatine Kinase (10-223) U/L C-Reactive Protein (< 5.00) mg/L Total Protein (6.4-8.9) g/dL Albumin (3.2-5.2) g/dL Globulin (2-4) g/dL Albumin/Globulin Ratio (1-3) Urine Color Urine Appearance Urine pH (5-9) Ur Specific [place] (1.010-1.030) Urine Protein (Negative) Urine Ketones (Negative) Urine Blood (Negative) Urine Nitrate (Negative) Urine Bilirubin (Negative) Urine Urobilinogen (Negative) Ur Leukocyte Esterase (Negative) Urine WBC (Auto) (Absent) Urine RBC (Auto) (Absent) Ur Squamous Epith Cells (Absent) Urine Bacteria (Absent) Hyaline Casts (Absent) Urine Glucose (Negative) Result Diagrams: 08/29/16 18:32 08/29/16 18:32 Lab Statement: Any lab studies that have been ordered have been reviewed, and results considered in the medical decision making process. - Radiology CXR Xray Interpretation: No Acute Changes Radiology Interpretation Completed By: Radiologist - IMPRESSION: No radiographic evidence for acute cardiopulmonary abnormality on this portable chest x-ray. - EKG 18:12 EKG Interpretation: NSR at 94 bpm, No ST elevation GIGU Course/Dx - Course Assessment/Plan: 51 y/o F presents w/ c/o hyperglycemia, nausea, vomiting, and diarrhea since approx 09:25 this morning. Pt also reported a fever and dry mouth. Hx: Dm Type 1. She reports that she has polydipsia, polyuria and polyphagia. She also reports that she feels as when she is DKA. Blood work shows WBCs 17.3, hb 11.1 w/o bands. AG is 20 and CO2 is <7 consistent with DKA. UA is contaminated. Will send UA for blood cultures. EKG: NSR at BPM w/ o ANDRÉS. EKG is unchanged from 08/12/16. IN the ED course she was started with 3 L of IV fluids, and an insulin Drip. She was was given Zofran for nausea and vomiting. I discuss my physical exam, findings and test results with Dr. Loaiza from the hospitalist services and she agrees to admit patient to his services. Patient is hemodynamically stable alert and oriented x 3. - Diagnoses Differential Diagnoses - Female: Gastroenteritis (Viral), Vomiting - DKA, hyperglycemia Provider Diagnoses: DKA, type 1, Nausea & vomiting, Diarrhea, Diabetes mellitus, insulin dependent (IDDM), uncontrolled, DKA (diabetic ketoacidoses) - Physician Notifications Discussed Care Of Patient With: Dr. Loaiza (Hospitalist) at 19:15 who agreed to accept the pt. Discharge - Discharge Plan Condition: Stable Disposition: ADMITTED TO [facility] documentation as recorded by the Miki jolley Karl accurately reflects the service I personally performed and the decisions made by me, Bandar Jensen MD.
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
[2016-08-29] MEDS ORDERED: Albuterol 2.5 MG/3 ML NEB.SOL* (0.083%) INH PRN (20:49)
[2016-08-29] MEDS ORDERED: Acetaminophen TAB* 325 MG PO PRN (20:49)
[2016-08-29] MEDS ORDERED: Melatonin (NF) 3 MG TAB PO PRN (20:54)
[2016-08-29] MEDS ORDERED: PROCHLORPERAZINE INJ 5 MG/ML 2 ML VIAL IV PRN (20:58)
[2016-08-29] MEDS ORDERED: NS 0.9% 1000 ML* 1,000 ML IV SCH ×2 (21:00)
[2016-08-29] MEDS ORDERED: Insulin REGULAR(*) 100 UNITS in NS 0.9% 100 ML* 100 ML IV SCH ×4 (22:00)
[2016-08-29] MEDS: Pantoprazole IV* 40 MG IV SCH (22:35)
[2016-08-29] MEDS: Docusate CAP* 100 MG PO SCH (22:35)
[2016-08-29 23:03] LABS: Venous Bicarbonate HCO3 4.6 mmol/L (24-28)
[2016-08-29 23:19] LABS: BUN/Creatinine Ratio 29.8 (8-20); Calcium 8.8 mg/dL (8.6-10.3); EGFR African American 80.1 (>60); EGFR Non-African American 62.3 (>60); Potassium 4.6 mmol/L (3.5-5.0)
[2016-08-30] MEDS: D5NS 0.9% 1000 ML BAG* 1,000 ML IV SCH ×3 (01:01→05:34)
[2016-08-30 02:18] LABS: Venous Bicarbonate HCO3 12.1 mmol/L (24-28)
[2016-08-30 02:31] LABS: BUN/Creatinine Ratio 30.1 (8-20); Calcium 8.4 mg/dL (8.6-10.3); EGFR African American 92.5 (>60); EGFR Non-African American 71.9 (>60); Magnesium 1.7 mg/dL (1.9-2.7); Potassium 3.8 mmol/L (3.5-5.0)
[2016-08-30] MEDS ORDERED: Magnesium Sulfate 2 GM IV* 2 GM/50 ML BAG IVPB ONE (03:05)
[2016-08-30] MEDS: Heparin VIAL(*) 5000 UNITS/ML VIAL (FIVE THOUSAND) SUBCUT SCH ×3 (05:34→21:22)
[2016-08-30 06:22] LABS: Venous Bicarbonate HCO3 17.9 mmol/L (24-28)
[2016-08-30 06:25] LABS: Hematocrit 36 % (35-47); Hemoglobin 11.8 g/dl (12.0-16.0); Mean Corpuscular HGB Conc 33 g/dl (31-36); Mean Corpuscular Hemoglobin 29 pg (27-31); Mean Corpuscular Volume 90 fL (80-97); Mean Platelet Volume 9 um3 (7.4-10.4); Red Blood Count 4.02 10^6/ul (4.0-5.4); Red Cell Distribution Width 16 % (10.5-15); White Blood Count 18.9 10^3/ul (3.5-10.8)
[2016-08-30 06:37] LABS: BUN/Creatinine Ratio 24.7 (8-20); Calcium 8.5 mg/dL (8.6-10.3); EGFR African American 100.8 (>60); EGFR Non-African American 78.4 (>60); Potassium 3.9 mmol/L (3.5-5.0)
[2016-08-30] MEDS: Ondansetron INJ* 2 MG/ML VIAL IV PRN (07:19)
[2016-08-30] MEDS ORDERED: D5W NS 0.9% 20Meq KCL 1000 ML* 1,000 ML IV SCH (08:00)
[2016-08-30] MEDS: Docusate CAP* 100 MG PO SCH ×2 (08:29→21:22)
[2016-08-30] MEDS: Cetirizine* 10 MG TAB PO SCH (08:32)
[2016-08-30] MEDS: Montelukast Sodium TAB* 10 MG PO SCH (08:32)
[2016-08-30] MEDS: Pantoprazole IV* 40 MG IV SCH (08:32)
--- NOTE | 2016-08-30 09:39 | PN ---
Subjective Date of Service: 08/30/16 Interval History: Patient seen this morning. Having frequent cough, productive of "white, foamy" mucous, says it has been ongoing for weeks. Feels cold and warm on and off. States she had a recent breast cancer scare and on Wednesday received her negative biopsy results. She celebrated with pizza, subs and beer and did not adjust her insulin accordingly. Still with some nausea this morning, eating jello but says she is not ready for food. Says she used to see Dr. Turpin in the past and would be open to seeing him again. Family History: Unchanged from Admission Social History: Unchanged from Admission Past Medical History: Unchanged from Admission Objective Active Medications: Acetaminophen (Tylenol Tab*) 650 mg PO Q6H PRN Albuterol (Ventolin 2.5 Mg/3 Ml Neb.Laxmi*) 2.5 mg INH Q2H PRN Cetirizine HCl (Zyrtec*) 10 mg PO DAILY KANE Docusate Sodium (Colace Cap*) 200 mg PO BID KANE Heparin Sodium (Porcine) (Heparin Vial(*)) 5,000 units SUBCUT Q8HR KANE Sodium Chloride (Ns 0.9% 1000 Ml*) 1,000 mls @ 0 mls/hr IV WIDE OPEN KANE Insulin Human Regular 100 (units/ Sodium Chloride) 100 mls @ 7 mls/hr IV .( INITIAL RATE) KANE Potassium Chloride/Dextrose (D5w Ns 0.9% 20meq Kcl 1000 Ml*) 1,000 mls @ 150 mls/hr IV PER RATE KANE Melatonin (Melatonin (Nf)) 3 mg PO BEDTIME PRN; Protocol Montelukast Sodium (Singulair Tab*) 10 mg PO DAILY KANE Ondansetron HCl (Zofran Inj*) 4 mg IV Q6H PRN Pantoprazole Sodium (Protonix Iv*) 40 mg IV DAILY KANE Prochlorperazine Edisylate (Compazine Inj*) 10 mg IV Q6H PRN Vital Signs 08/29/16 08/29/16 08/29/16 19:45 19:47 20:00 Temperature Pulse Rate 97 96 Respiratory 22 17 Rate Blood Pressure 113/60 128/60 (mmHg) O2 Sat by Pulse 99 100 Oximetry 08/30/16 08/30/16 08/30/16 07:00 08:00 09:00 Temperature 99.6 F Pulse Rate 99 94 95 Respiratory 24 29 13 Rate Blood Pressure 103/57 118/53 120/57 (mmHg) O2 Sat by Pulse 96 97 99 Oximetry Oxygen Devices in Use Now: None Appearance: Middle-aged, F, laying in bed in NAD aside from intermittent coughing Eyes: No Scleral Icterus Ears/Nose/Mouth/Throat: - - Dry MM Neck: NL Appearance and Movements; NL JVP Respiratory: Symmetrical Chest Expansion and Respiratory Effort, Clear to Auscultation Cardiovascular: NL Sounds; No Murmurs; No JVD, RRR Abdominal: NL Sounds; No Tenderness; No Distention Lymphatic: No Cervical Adenopathy Extremities: No Edema Skin: No Rash or Ulcers Neurological: Alert and Oriented x 3 Result Diagrams: 08/30/16 06:10 08/30/16 06:10 Additional Lab and Data: Microbiology and Other Data: Microbiology 08/30/16 08:45 Influenza Types A,B Antigen (JASON) - Final Nasopharyngeal Specimen received for Influenza A/B Molecular testing Assess/Plan/Problems-Billing Assessment: DKA likely 2/2 dietary/medication non-compliance in a 51 yo F with hx of DM1, HTN, HCV, tobacco and EtOH abuse - Patient Problems (1) DKA (diabetic ketoacidoses) Current Visit: No Comment: Suspect this was due to dietary/medication non- compliace, possibly viral infection as well. Gap closed this morning. Change back to NS as BGs climbing and gap is closed. Patient is not ready for food yet , will try to have solids for lunch. If tolerates will wean off gtt and start back on insulin pump. WBC elevated, no clear bacterial infection noted. Flu -ve. UA -ve. Should be referred back to see Dr. Turpin as outpatient. (2) HTN (hypertension) Current Visit: No Comment: holding Valsartan, currently normotensive (3) DVT prophylaxis Current Visit: No Comment: heparin sc Status and Disposition: Plan for transfer to medical floor later today, possible d/c 08/31
[2016-08-30] MEDS ORDERED: NS 0.9% 1000 ML* 1,000 ML IV SCH (09:45)
[2016-08-30] MEDS: guaiFENesin ER TAB 600 MG PO SCH ×2 (09:57→21:22)
[2016-08-30] MEDS ORDERED: Insulin REGULAR(*) 100 UNITS in NS 0.9% 100 ML* 100 ML IV SCH (16:00)
[2016-08-30 16:24] LABS: BUN/Creatinine Ratio 20.3 (8-20); Calcium 8.1 mg/dL (8.6-10.3); EGFR African American 105.6 (>60); EGFR Non-African American 82.1 (>60); Potassium 4.8 mmol/L (3.5-5.0)
--- NOTE | 2016-08-30 16:55 | PN ---
Hospitalist Progress Note Patient was hypoglycemic this morning. Came off the insulin gtt and BGs increased into the 100s again. She initially did not want to replace it with her insulin pump but did so after eating. She bolused as she usually would and about an hour later her BG was elevated into the 400s again and she had a mild acidosis and AG of 12. She was placed back on the insulin gtt at this time. Will recheck BMP in another 4 hours.
[2016-08-30] MEDS ORDERED: Insulin REGULAR(*) 1 UNITS UNIT IV PUSH ONE (17:33)
[2016-08-30 20:32] LABS: BUN/Creatinine Ratio 18.2 (8-20); Calcium 8.4 mg/dL (8.6-10.3); EGFR African American 86.4 (>60); EGFR Non-African American 67.2 (>60); Potassium 3.8 mmol/L (3.5-5.0)
--- NOTE | 2016-08-30 22:12 | PN ---
Hospitalist Progress Note Nursing staff called to alert to the fact that her glucose was falling quite quickly. From 1900 to 2200, glucose fell from 333 to 67 mg/dl. Orders given to stop insulin drip and give Lantus 40u. Instructions given to continue to check glucose q1h x 4 additional hours and if stable, can go to q4h monitoring and resume AC monitoring tomorrow. Dose of Lantus was chosen based on her prior pump basal rate of 1.5u/h.
[2016-08-30] MEDS: Insulin GLARGINE(*) 1 UNITS UNIT SUBCUT SCH (22:56)
[2016-08-31] MEDS: Insulin LISPRO* 1 UNITS UNIT SUBCUT SCH ×6 (00:34→23:00)
[2016-08-31] MEDS: Dextrose 50% Syringe 50 ML* 25 GM/50 ML SYRINGE IV PUSH PRN (05:07)
[2016-08-31] MEDS: Heparin VIAL(*) 5000 UNITS/ML VIAL (FIVE THOUSAND) SUBCUT SCH ×3 (05:57→22:04)
[2016-08-31 06:19] LABS: BUN/Creatinine Ratio 20.7 (8-20); Calcium 8.3 mg/dL (8.6-10.3); EGFR African American 139.9 (>60); EGFR Non-African American 108.7 (>60)
[2016-08-31 07:27] LABS: Phosphorus 1.1 mg/dL (2.5-5.0)
[2016-08-31] MEDS ORDERED: KCL 10 MEQ/50 ML IVPREMIX* 10 MEQ/50 ML BAG IV SCH (07:30)
[2016-08-31] MEDS: guaiFENesin ER TAB 600 MG PO SCH ×2 (07:55→22:02)
[2016-08-31] MEDS: Cetirizine* 10 MG TAB PO SCH (07:55)
[2016-08-31] MEDS: Montelukast Sodium TAB* 10 MG PO SCH (07:55)
[2016-08-31] MEDS: Potassium Chlor TAB* 20 MEQ TAB.ER PO SCH ×2 (07:55→11:48)
[2016-08-31] MEDS: Docusate CAP* 100 MG PO SCH ×2 (07:59→22:03)
[2016-08-31] MEDS: Pantoprazole IV* 40 MG IV SCH (08:00)
[2016-08-31] MEDS ORDERED: Potassium Phosphate IV* 5 MMOLE in NS 0.9% 250 ML* 250 ML IVPB ONE (08:30)
[2016-08-31] MEDS ORDERED: Potassium Phosphate IV* 10 MMOLE in NS 0.9% 250 ML* 250 ML IVPB ONE (10:45)
--- NOTE | 2016-08-31 13:34 | PN ---
Subjective Date of Service: 08/31/16 Interval History: Pt feels "OK". Stated that she "celebrated" her breast bx being negative and had a few of beers , pizza and subs. When she woke up in Am her BG was >300 and she was unable to control it despite boluses of insulin. Family History: Unchanged from Admission Social History: Unchanged from Admission Past Medical History: Unchanged from Admission Objective Active Medications: Acetaminophen (Tylenol Tab*) 650 mg PO Q6H PRN PRN Reason: FEVER/PAIN Albuterol (Ventolin 2.5 Mg/3 Ml Neb.Laxmi*) 2.5 mg INH Q2H PRN PRN Reason: SOB/WHEEZING Cetirizine HCl (Zyrtec*) 10 mg PO DAILY [facility] Last Admin: 08/31/16 07:55 Dose: 10 mg Dextrose (D50w Syringe 50 Ml*) 12.5 gm IV PUSH .FOR FS < 60 - SS PRN PRN Reason: FS < 60 Last Admin: 08/31/16 05:07 Dose: 12.5 gm Docusate Sodium (Colace Cap*) 200 mg PO BID [facility] Last Admin: 08/31/16 07:59 Dose: Not Given Guaifenesin (Mucinex*) 600 mg PO BID [facility] Last Admin: 08/31/16 07:55 Dose: 600 mg Heparin Sodium (Porcine) (Heparin Vial(*)) 5,000 units SUBCUT Q8HR [facility] Last Admin: 08/31/16 05:57 Dose: Not Given Potassium Phosphate 5 mmole/ (Sodium Chloride) 251.6667 mls @ 42 mls/hr IVPB ONCE ONE Stop: 08/31/16 14:29 Last Admin: 08/31/16 08:39 Dose: 42 mls/hr Potassium Phosphate 10 mmole/ (Sodium Chloride) 253.3333 mls @ 42 mls/hr IVPB ONCE ONE Stop: 08/31/16 16:46 Last Admin: 08/31/16 10:49 Dose: 42 mls/hr Insulin Glargine (Lantus(*)) 40 units SUBCUT Q24H [facility] Last Admin: 08/30/16 22:56 Dose: 40 units Insulin Human Lispro (Humalog*) 0 units SUBCUT Q4HR [facility] PRN Reason: Protocol Last Admin: 08/31/16 09:26 Dose: Not Given Melatonin (Melatonin (Nf)) 3 mg PO BEDTIME PRN; Protocol PRN Reason: Sleep Montelukast Sodium (Singulair Tab*) 10 mg PO DAILY [facility] Last Admin: 08/31/16 07:55 Dose: 10 mg Ondansetron HCl (Zofran Inj*) 4 mg IV Q6H PRN PRN Reason: NAUSEA Last Admin: 08/30/16 07:19 Dose: 4 mg Pantoprazole Sodium (Protonix Iv*) 40 mg IV DAILY [facility] Last Admin: 08/31/16 08:00 Dose: 40 mg Prochlorperazine Edisylate (Compazine Inj*) 10 mg IV Q6H PRN PRN Reason: NAUSEA Vital Signs 08/30/16 08/30/16 08/30/16 14:00 15:00 16:00 Temperature 99.0 F Pulse Rate 89 90 91 Respiratory 27 23 17 Rate Blood Pressure 118/53 (mmHg) O2 Sat by Pulse 98 98 98 Oximetry 08/30/16 08/30/16 08/30/16 16:06 17:00 18:00 Temperature Pulse Rate 87 84 101 Respiratory 25 30 14 Rate Blood Pressure 104/57 120/73 129/83 (mmHg) O2 Sat by Pulse 100 98 98 Oximetry 08/30/16 08/30/16 08/30/16 19:00 19:29 20:00 Temperature 100.1 F Pulse Rate 94 91 Respiratory 22 14 Rate Blood Pressure 113/58 115/62 (mmHg) O2 Sat by Pulse 97 97 Oximetry 08/30/16 08/30/16 08/30/16 21:00 22:00 23:00 Temperature Pulse Rate 86 83 81 Respiratory 23 25 30 Rate Blood Pressure 117/69 117/60 126/65 (mmHg) O2 Sat by Pulse 98 97 97 Oximetry 08/30/16 08/30/16 08/31/16 23:02 23:37 00:00 Temperature 99.5 F Pulse Rate 82 75 Respiratory 24 24 Rate Blood Pressure 129/65 (mmHg) O2 Sat by Pulse 97 94 Oximetry 08/31/16 08/31/16 08/31/16 01:00 02:00 03:00 Temperature Pulse Rate 92 82 71 Respiratory 14 21 25 Rate Blood Pressure 135/92 139/70 135/70 (mmHg) O2 Sat by Pulse 97 94 95 Oximetry 08/31/16 08/31/16 08/31/16 04:00 05:00 06:00 Temperature 99.3 F Pulse Rate 73 88 79 Respiratory 25 23 21 Rate Blood Pressure 136/72 147/65 131/70 (mmHg) O2 Sat by Pulse 95 97 97 Oximetry 08/31/16 08/31/16 08/31/16 06:46 07:00 08:00 Temperature 98.6 F Pulse Rate 83 70 78 Respiratory 17 22 19 Rate Blood Pressure 127/75 161/71 (mmHg) O2 Sat by Pulse 97 95 98 Oximetry 08/31/16 08/31/16 08/31/16 09:00 10:00 11:00 Temperature Pulse Rate 82 75 72 Respiratory 18 24 19 Rate Blood Pressure 154/117 139/62 142/77 (mmHg) O2 Sat by Pulse 97 96 97 Oximetry 08/31/16 08/31/16 12:00 13:00 Temperature 98.7 F Pulse Rate 84 77 Respiratory 16 14 Rate Blood Pressure 129/68 145/90 (mmHg) O2 Sat by Pulse 95 97 Oximetry Oxygen Devices in Use Now: None Appearance: 51 yo F in NAD, AAOx3 Eyes: No Scleral Icterus, PERRLA Ears/Nose/Mouth/Throat: NL Teeth, Lips, Gums, Mucous Membranes Moist Neck: NL Appearance and Movements; NL JVP, Trachea Midline Respiratory: Symmetrical Chest Expansion and Respiratory Effort, Clear to Auscultation Cardiovascular: NL Sounds; No Murmurs; No JVD, RRR Abdominal: NL Sounds; No Tenderness; No Distention, No Hepatosplenomegaly Lymphatic: No Cervical Adenopathy Extremities: No Edema, No Clubbing, Cyanosis Skin: No Rash or Ulcers, No Nodules or Sclerosis Neurological: Alert and Oriented x 3, NL Muscle Strength and Tone Result Diagrams: 08/30/16 06:10 08/31/16 05:30 Additional Lab and Data: Microbiology and Other Data: Microbiology 08/30/16 08:45 Influenza Types A,B Antigen (JASON) - Final Nasopharyngeal Specimen received for Influenza A/B Molecular testing Assess/Plan/Problems-Billing Assessment: DKA likely 2/2 dietary/medication non-compliance in a 51 yo F with hx of DM1, HTN, HCV, tobacco and EtOH abuse - Patient Problems (1) DKA (diabetic ketoacidoses) Comment: Suspect this was due to dietary/medication non-compliance. will start back on insulin pump. WBC elevated, no clear bacterial infection noted. Should be referred back to see Dr. Turpin as outpatient. (2) HTN (hypertension) Comment: will restart Valsartan (3) DVT prophylaxis Comment: heparin sc Status and Disposition: Plan for transfer to medical floor later today
[2016-08-31] MEDS: Valsartan TAB* 80 MG PO SCH (14:16)
[2016-08-31] MEDS: Magnesium Oxide TAB* 400 MG PO SCH (14:16)
[2016-08-31] MEDS ORDERED: Insulin LISPRO* 1 UNITS UNIT SUBCUT ONE (23:00)
[2016-08-31] MEDS: Insulin GLARGINE(*) 1 UNITS UNIT SUBCUT SCH (23:06)
[2016-09-01] MEDS: Ondansetron INJ* 2 MG/ML VIAL IV PRN (01:36)
[2016-09-01] MEDS ORDERED: Dextrose 50% Syringe 50 ML* 25 GM/50 ML SYRINGE ONE (02:34)
[2016-09-01] MEDS ORDERED: D5NS 0.9% 1000 ML BAG* 1,000 ML IV SCH (04:00)
[2016-09-01] MEDS ORDERED: Dextrose 50% Syringe 50 ML* 25 GM/50 ML SYRINGE IV PUSH ONE (05:00)
[2016-09-01] MEDS: Dextrose 50% Syringe 50 ML* 25 GM/50 ML SYRINGE IV PUSH PRN (05:17)
[2016-09-01 05:29] LABS: Hematocrit 34 % (35-47); Hemoglobin 11.3 g/dl (12.0-16.0); Mean Corpuscular HGB Conc 33 g/dl (31-36); Mean Corpuscular Hemoglobin 29 pg (27-31); Mean Corpuscular Volume 88 fL (80-97); Mean Platelet Volume 8 um3 (7.4-10.4); Red Blood Count 3.86 10^6/ul (4.0-5.4); Red Cell Distribution Width 17 % (10.5-15); White Blood Count 5.2 10^3/ul (3.5-10.8)
[2016-09-01 05:55] LABS: BUN/Creatinine Ratio 25.6 (8-20); Calcium 8.9 mg/dL (8.6-10.3); EGFR African American 197.5 (>60); EGFR Non-African American 153.6 (>60); Magnesium 1.7 mg/dL (1.9-2.7); Phosphorus 2.5 mg/dL (2.5-5.0); Potassium 3.4 mmol/L (3.5-5.0)
[2016-09-01] MEDS: Heparin VIAL(*) 5000 UNITS/ML VIAL (FIVE THOUSAND) SUBCUT SCH (06:23)
[2016-09-01] MEDS: Insulin LISPRO* 1 UNITS UNIT SUBCUT SCH (08:03)
[2016-09-01 08:08] VITALS: BP 125/62
[2016-09-01] MEDS: Magnesium Oxide TAB* 400 MG PO SCH (09:50)
[2016-09-01] MEDS: Valsartan TAB* 80 MG PO SCH (09:50)
[2016-09-01] MEDS: Cetirizine* 10 MG TAB PO SCH (09:50)
[2016-09-01] MEDS: guaiFENesin ER TAB 600 MG PO SCH (09:50)
[2016-09-01] MEDS: Pantoprazole IV* 40 MG IV SCH (09:51)
[2016-09-01] MEDS: Docusate CAP* 100 MG PO SCH (09:51)
[2016-09-01] MEDS: Montelukast Sodium TAB* 10 MG PO SCH (11:31)
--- NOTE | 2016-09-02 22:37 | DS ---
DISCHARGE SUMMARY: DATE OF ADMISSION: 08/29/16 DATE OF DISCHARGE: 09/01/16 PRIMARY CARE PROVIDER: MARKUS Olmstead DISCHARGE DIAGNOSIS: Diabetic ketoacidosis. SECONDARY DIAGNOSES: 1. Diabetes, type 1. 2. Hypertension. 3. History of tobacco abuse. 4. History of hepatitis C. MEDICATIONS AT DISCHARGE: Include: 1. Levocetirizine 5 mg p.o. daily. 2. Mucinex on a p.r.n. basis. 3. Albuterol nebulizer 1 nebulizer every 4 hours p.r.n. 4. Vitamin D3 2000 units daily. 5. Ferrous sulfate 325 mg b.i.d. 6. Insulin NovoLog infused via pump at an hourly rate of 1.5 units per hour. The patient is to bolus herself according to her at-home scale. 7. Singulair 10 mg daily. 8. Diovan 80 mg daily. LABORATORY DATA AND STUDIES PERFORMED DURING THE HOSPITAL STAY: Included, on , white blood cell count of 5.2, hemoglobin 11.3, hematocrit of 34, and platelets of 143. Sodium of 137, potassium 3.4, chloride 104, carbon dioxide 27 , BUN 11, creatinine 0.43. HOSPITALIZATION COURSE: Conchita Washington is a 51-year-old female with history of diabetes, type 1, who has also history of recurrent DKA. At this time, she stated that she "celebrated" negative breast biopsy. The news she received was within 24 hours of her current hospitalization. Upon this, she celebrated negative breast biopsy by ordering pizza, eating a few subs, and drinking 6 beers. She woke up next morning with sugars in the 300s. She apparently bolused herself according to her scale but then she quickly drifted off to sleep. She woke up and her sugars were over 400 and at that point, she started having nausea and vomiting. She presented to the [facility] on 08/29 in DKA. She was placed on insulin drip. In the initial 24 hours, she closed her anion gap and she was taken off the drip, but unfortunately her sugars continued to be uncontrolled and she needed to be placed back on the insulin drip the same day. The drip was once again discontinued on 08/31/16. At that point, the patient was placed back on her insulin pump and she did well for the next 24 hours of her hospital stay. She did have an episode of hypoglycemia on the night of 08/31, but later on during the daytime, her sugars were well controlled in the range of above 100 to maximum of 270 right after she ate. The patient requested to be discharged. We had multiple discussions with the patient in regards of her requiring admissions for DKA. She appears to be compliant with her medications, but she also has troubles with intermittent binge drinking. She was evaluated by our high school social studies tutor during the hospital stay. She was also referred to our CAP coordinator after discharge. At discharge, the patient was recommended to follow up with her primary care provider in approximately 4 to 7 days. PHYSICAL EXAMINATION AT THE TIME OF DISCHARGE: Blood pressure of 125/62, heart rate of 74 and regular, respiratory rate 16, oxygen saturation 99% on room air, temperature 98.3. General: The patient is a very pleasant, 51-year-old female , who in no acute distress. Alert, awake, and oriented x3. HEENT: Head atraumatic, normocephalic. Eyes: Pupils equal, reactive to light and accommodation. Oropharynx is clear. Mucosa moist. Neck: Supple. No JVD. No bruit bilaterally. Cardiovascular: Regular rate and rhythm. No murmur. Respiratory: Clear to auscultation bilaterally. Abdomen: Soft, nontender. Bowel sounds positive in all 4 quadrants. Extremities: There is no edema. Pulses +2 bilaterally. No clubbing or cyanosis. Neuro Evaluation: Speech clear. Cranial nerves II through XII grossly intact. Motor strength is 5/5 bilaterally. Please note that this is a short summary of the patient's hospital stay. Please refer to further medical records for details. TIME SPENT: Approximately 45 minutes was spent on the patient's discharge. CC: MARKUS Olmstead * [id number]/[facility] #: [id number] OSMIN
== END 2016-09-01 15:10 | disposition home or self-care (01) | DRG 420 ==
LOC: ED 17:50 → ICU 19:29 → MED 08-31 15:37
PROVIDERS: ADMIT Hospitalist; ATTEND Internal Medicine
DX: E10.10 Type 1 diabetes mellitus with ketoacidosis without coma (principal); E11.649 Type 2 diabetes mellitus with hypoglycemia without coma; I10 Essential (primary) hypertension; Z79.4 Long term (current) use of insulin; B18.2 Chronic viral hepatitis C; F17.210 Nicotine dependence, cigarettes, uncomplicated; F10.10 Alcohol abuse, uncomplicated; Y90.9 Presence of alcohol in blood, level not specified; J45.909 Unspecified asthma, uncomplicated; J44.9 Chronic obstructive pulmonary disease, unspecified; Z82.49 Family history of ischemic heart disease and other diseases of the circulatory system; Z83.3 Family history of diabetes mellitus
CPT/HCPCS: 36415; 71010; 80048; 80053; 81003; 81015; 82550; 82803; 82947; 83605; 83735; 84100; 84134; 84484; 85025; 85027; 86140; 87086; 87502; 93005; 94640; 94760; 99406; A9270-GY; J1644; J1815; J2405; J3475; J3480

== ENCOUNTER 2017-03-26 08:46 | Emergency (ER) | payer BC ==
[2017-03-26] MEDS ORDERED: Albuterol 2.5 MG/3 ML NEB.SOL* (0.083%) INH ONE (08:51)
[2017-03-26] MEDS ORDERED: methylPREDNISolone 125 MG* 2 ML VIAL IM ONE (08:51)
[2017-03-26] MEDS ORDERED: Ipratropium 0.5MG/2.5ML NEB* 0.5 MG/2.5 ML NEB.SOLN INH ONE (08:51)
[2017-03-26 08:54] VITALS: BP 115/80
--- NOTE | 2017-03-26 09:09 | UC ---
Shortness of Breath HPI - HPI Summary HPI Summary: ATE SOMETHING PEPPERY THIS MORNING AND TRIGGERED ASTHMA - COUGHING, SOB, GAGGING. NO FEVER. - History of Current Complaint Stated Complaint: SOB ASTHMA Time Seen by Provider: 03/26/17 08:51 Hx Obtained From: Patient Onset/Duration: Sudden Onset, Lasting Minutes, Still Present Timing: Constant Current Severity: Moderate Dyspnea At: Rest Aggrevating Factors: Allergens Alleviating Factors: Bronchodilators Associated Signs & Symptoms: Positive: Cough (Nonproductive). Negative: Wheezing, Chest Pain w/Cough, Chest Pain Unrelated to Cough, Fever, Chills, Diaphoresis - Allergy/Home Medications Allergies/Adverse Reactions: Allergies Allergy/AdvReac Type Severity Reaction Status Date / Time No Known Allergies Allergy Verified 03/26/17 08:51 PMH/Surg Hx/FS Hx/Imm Hx Endocrine History: Diabetes Cardiovascular History: Hypertension Respiratory History: COPD, Asthma Other History Of: Hepatitis C - Surgical History Surgical History: Yes Surgery Procedure, Year, and Place: Skin graft 1975 [facility]. hysterectomy 2007 [facility]. RIGHT SHOULDER SURGERY 2008 [facility]. Bilateral Carpal tunnel, 2013. Shoulder 2014 - Family History Known Family History: Positive: Cardiac Disease, Hypertension, Diabetes - Social History Alcohol Use: Weekly Alcohol Amount: 30 beers/week Substance Use Type: None Smoking Status (MU): Light Every Day Tobacco Smoker Type: Cigarettes Amount Used/How Often: 1-3 cig/day Length of Time of Smoking/Using Tobacco: 20 - 30 years Have You Smoked in the Last Year: Yes Household Exposure Type: Cigarettes - Immunization History Most Recent Influenza Vaccination: 2016 Most Recent Tetanus Shot: unknown Most Recent Pneumonia Vaccination: never Review of Systems Constitutional: Negative Respiratory: Shortness Of Breath, Cough Cardiovascular: Negative Gastrointestinal: Negative All Other Systems Reviewed And Are Negative: Yes Physical Exam Triage Information Reviewed: Yes Appearance: No Pain Distress, Well-Nourished Vital Signs: Initial Vital Signs Temp 97.2 F 03/26/17 08:52 Pulse 106 03/26/17 08:52 Resp 20 03/26/17 08:52 BP 115/80 03/26/17 08:52 Pulse Ox 100 03/26/17 08:52 Vital Signs Reviewed: Yes Eyes: Positive: Conjunctiva Clear ENT: Positive: Hearing grossly normal Neck: Positive: Supple, Nontender, No Lymphadenopathy Respiratory: Positive: Lungs clear, Normal breath sounds, Respiratory distress, Other: - COUGHING AND GAGGING Cardiovascular: Positive: Tachycardia Abdomen Description: Positive: Soft Musculoskeletal: Positive: No Edema Neurological: Positive: Muscle Tone Normal Psychological: Positive: Age Appropriate Behavior Skin: Negative: rashes Re-Evaluation - Re-Evaluation First Eval Re-Evaluation Time: 09:10 - FEELS BETTER AFTER 125MG SOLUMEDROL AND A DUONEB Change: Improved Shortness of Breath Dx - Differential Dx/Diagnosis Provider Diagnoses: ASTHMA EXACERBATION Discharge - Discharge Plan Condition: Stable Disposition: HOME Prescriptions: Albuterol HFA INHALER* [Ventolin HFA Inhaler*] 2 puff INH Q4H PRN #1 mdi PRN Reason: Shortness Of Breath Respiratory Therapy Supplies [Nebulizer/Adult Mask] 1 kit XX Q4H PRN #1 kit PRN Reason: Shortness Of Breath predniSONE TAB* [Deltasone TAB*] 40 mg PO DAILY #10 tab Patient Education Materials: Asthma (ED), Bronchospasm (ED) Referrals: Dayanara RIGGS,Francheska Frey [Primary Care Provider] - If Needed Additional Instructions: YOU RECEIVED 125MG SOLU-MEDROL AND AN ALBUTEROL/IPRATROPIUM NEBULIZER TREATMENT WITH IMPROVEMENT OF YOUR SYMPTOMS. WATCH YOUR BLOOD SUGAR CLOSELY STEROIDS WILL ELEVATE YOUR NUMBERS. AVOID TRIGGERS. ALBUTEROL INHALER PRESCRIBED FOR YOU TO CARRY WITH YOU. NEXT DOSE STEROIDS TOMORROW. IF YOUR SYMPTOMS ARE COMPLETELY RESOLVED NO NEED TO TAKE FULL COURSE OF STEROIDS.
== END 2017-03-26 09:20 | disposition home or self-care (01) ==
LOC: UCEAST 08:46
DX: J44.1 Chronic obstructive pulmonary disease with (acute) exacerbation (principal); R05 Cough; E11.9 Type 2 diabetes mellitus without complications; I10 Essential (primary) hypertension; F17.210 Nicotine dependence, cigarettes, uncomplicated
CPT/HCPCS: 96372; 99212; G0463; J2930; J7644

== ENCOUNTER 2017-06-28 08:16 | Emergency (ER) | payer BC ==
[2017-06-28 08:26] VITALS: BP 137/76
--- NOTE | 2017-06-28 08:39 | UC ---
Abdominal Pain Female HPI - HPI Summary HPI Summary: nausea/vomiting for 2 days began Wednesday night, blood sugars been 90-150 she turned her Insulin pump off. voiding only small amounts - History of Current Complaint Chief Complaint: UCGI Stated Complaint: VOMITTING Time Seen by Provider: 06/28/17 08:17 Hx Obtained From: Patient ?: No Onset/Duration: Sudden Onset, Lasting Days - 2, Still Present Timing: Constant Severity Initially: Moderate Severity Currently: Moderate Pain Intensity: 9 Pain Scale Used: 0-10 Numeric Location: Diffuse Radiates: No Character: Cramping Aggravating Factor(s): Food Alleviating Factor(s): Nothing Associated Signs and Symptoms: Positive: Decreased Appetite, Nausea, Vomiting Allergies/Adverse Reactions: Allergies Allergy/AdvReac Type Severity Reaction Status Date / Time Envirmonetal Allergies Allergy Runny Nose Uncoded 06/28/17 08:26 PMH/Surg Hx/FS Hx/Imm Hx Previously Healthy: No Endocrine History: Diabetes - type 1 Cardiovascular History: Hypertension Respiratory History: Asthma Other History Of: Hepatitis C - Surgical History Surgical History: Yes Surgery Procedure, Year, and Place: Skin graft 1975 [facility]. hysterectomy 2007 [facility]. RIGHT SHOULDER SURGERY 2009 [facility]. Bilateral Carpal tunnel, 2013. Shoulder 2014 - Family History Known Family History: Positive: Cardiac Disease, Hypertension, Diabetes - Social History Occupation: Employed Full-time Lives: With Family Alcohol Use: Weekly Alcohol Amount: 12 beers/week Substance Use Type: None Smoking Status (MU): Light Every Day Tobacco Smoker Type: Cigarettes Amount Used/How Often: "couple of drags daily" Length of Time of Smoking/Using Tobacco: 20 - 30 years Have You Smoked in the Last Year: Yes Household Exposure Type: Cigarettes - Immunization History Most Recent Influenza Vaccination: 03/2017 Most Recent Tetanus Shot: unknown Most Recent Pneumonia Vaccination: never Review of Systems Constitutional: Chills, Fatigue Skin: Negative Eyes: Negative ENT: Negative Respiratory: Negative Cardiovascular: Negative Gastrointestinal: Abdominal Pain, Vomiting, Nausea Genitourinary: Negative, Other - decreased urine out put Motor: Negative Neurovascular: Negative Musculoskeletal: Negative Neurological: Weakness Psychological: Negative Is Patient Immunocompromised?: No All Other Systems Reviewed And Are Negative: Yes Physical Exam Triage Information Reviewed: Yes Appearance: Ill-Appearing - moderate, Pain Distress - mild, Thin Vital Signs: Initial Vital Signs Temp 98.8 F 06/28/17 08:18 Pulse 97 12/11/17 08:18 Resp 20 06/28/17 08:18 BP 137/76 06/28/17 08:18 Pulse Ox 98 06/28/17 08:18 Vital Signs Reviewed: Yes Eye Exam: Normal Eyes: Positive: Conjunctiva Clear ENT Exam: Normal ENT: Positive: Normal ENT inspection, Hearing grossly normal, Pharynx normal. Negative: Nasal congestion, Nasal drainage, Trismus, Muffled voice, Hoarse voice , Sinus tenderness Dental Exam: Normal Neck exam: Normal Neck: Positive: Supple, Nontender, No Lymphadenopathy Respiratory Exam: Normal Respiratory: Positive: Chest non-tender, No respiratory distress, No accessory muscle use Cardiovascular Exam: Normal Cardiovascular: Positive: RRR, No Murmur, Pulses Normal, Brisk Capillary Refill Abdominal Exam: Other Abdomen Description: Positive: Nontender - diffuse discomfort. Negative: CVA Tenderness (R), CVA Tenderness (L) Bowel Sounds: Positive: Present Musculoskeletal Exam: Normal Musculoskeletal: Positive: Strength Intact, ROM Intact, No Edema Neurological Exam: Normal Neurological: Positive: Alert, Muscle Tone Normal Psychological Exam: Normal Skin Exam: Normal Diagnostics - Laboratory Diagnostic Studies Completed/Ordered: FSBS 190 - EKG Cardiac Rate: NL Cardiac Rhythm: Sinus: Normal Ectopy: None ST Segment: Normal Abd Pain Female Course/Dx - Course Course Of Treatment: FSBS, Labs obtained, iv started EKG transfer to [facility] [place] via ambulance - Differential Dx/Diagnosis Provider Diagnoses: Acute nausea vomiting, DKA Discharge - Discharge Plan Condition: Guarded Disposition: TRANS HIGHER LVL OF CARE FAC Referrals: Dayanara RIGGS,Francheska Frey [Primary Care Provider] -
== END 2017-06-28 08:48 | disposition short-term general hospital (02) ==
LOC: UCEAST 08:16
DX: E10.10 Type 1 diabetes mellitus with ketoacidosis without coma (principal); Z79.4 Long term (current) use of insulin; Z96.41 Presence of insulin pump (external) (internal); I10 Essential (primary) hypertension; J45.909 Unspecified asthma, uncomplicated; F17.210 Nicotine dependence, cigarettes, uncomplicated
CPT/HCPCS: 93005; 99213; G0463

== ENCOUNTER 2017-06-28 09:03 | Emergency (ER) | payer BC ==
[2017-06-28] MEDS ORDERED: Albuterol/Ipratropium NEB.SOL* Albuterol 2.5 MG/Ipratropium 0.5 MG 3 ML INH ONE (09:46)
[2017-06-28] MEDS ORDERED: NS 0.9% 1000 ML* 2,000 ML IV ONE (09:46)
[2017-06-28 10:22] LABS: Hematocrit 38 % (35-47); Hemoglobin 12.8 g/dl (12.0-16.0); Mean Corpuscular HGB Conc 34 g/dl (31-36); Mean Corpuscular Hemoglobin 32 pg (27-31); Mean Corpuscular Volume 93 fL (80-97); Mean Platelet Volume 9 um3 (7.4-10.4); Red Blood Count 4.07 10^6/ul (4.0-5.4); Red Cell Distribution Width 14 % (10.5-15)
--- NOTE | 2017-06-28 10:24 | RAD ---
INDICATION: Cough. COMPARISON: Comparison is made with a prior chest x-ray study from August 29, 2016. TECHNIQUE: A portable view of the chest was obtained. FINDINGS: Cardiac and mediastinal contours appear to be within normal limits. The lungs are clear. No pleural effusion is seen. IMPRESSION: NO EVIDENCE FOR ACUTE DISEASE.
[2017-06-28 10:55] LABS: Albumin 3.6 g/dL (3.2-5.2); BUN/Creatinine Ratio 20.4 (8-20); C Reactive Protein 4.78 mg/L (< 5.00); Calcium 8.9 mg/dL (8.6-10.3); EGFR African American 151.3 (>60); EGFR Non-African American 117.6 (>60); Potassium 3.5 mmol/L (3.5-5.0); Total Bilirubin 0.4 mg/dL (0.2-1.0); Total Protein 6.6 g/dL (6.4-8.9)
[2017-06-28 11:20] LABS: Venous Bicarbonate HCO3 22.8 mmol/L (24-28)
[2017-06-28 11:58] VITALS: BP 124/67
--- NOTE | 2017-06-28 12:05 | ED ---
Brennen Spear Angela, scribed for Kwame Perez MD on 06/28/17 at 0939 . Respiratory - HPI Summary HPI Summary: This pt is a 52 y/o female presenting to [facility] via EMS from [facility] c/o productive cough, nausea, and vomiting x2 days. She describes productive cough with clear sputum. Pt additionally reports rhinorrhea, chills, chest congestion , body aches. She notes "feeling miserable." Pt reports that she has only been eating Jello but it makes her vomit. Pt's glucose levels have been ranging between 99 to 159, this morning it was 190. Pt denies sore throat, ear ache, fevers, diarrhea, abd pain. She uses albuterol at home. Pt had the flu shot in March. PMHx includes type 1 DM. - History of Current Complaint Chief Complaint: EDGeneral Stated Complaint: GENERAL ILLNESS Time Seen by Provider: 06/28/17 09:32 Hx Obtained From: Patient Onset/Duration: Lasting Days, Still Present Timing: Constant Pain Intensity: 0 Character: Cough (Productive) Sputum Color: Clear Aggravating Factor(s): Other - eating Associated Signs and Symptoms: URI - cough, rhinorrhea, chest congestion, body aches, Chills - Allergy/Home Medications Allergies/Adverse Reactions: Allergies Allergy/AdvReac Type Severity Reaction Status Date / Time Envirmonetal Allergies Allergy Runny Nose Uncoded 06/28/17 08:26 PMH/Surg Hx/FS Hx/Imm Hx Endocrine/Hematology History: Reports: Hx Diabetes - Type 1 Denies: Hx Thyroid Disease Cardiovascular History: Reports: Hx Hypertension Respiratory History: Reports: Hx Asthma, Hx Chronic Obstructive Pulmonary Disease (COPD) GI History: Reports: Hx Ulcer Musculoskeletal History: Reports: Hx Orthopedic Injury - carpal tunnel Sensory History: Denies: Hx Contacts or Glasses, Hx Hearing Aid Opthamlomology History: Denies: Hx Contacts or Glasses - Cancer History Hx Chemotherapy: No Hx Radiation Therapy: No - Surgical History Surgery Procedure, Year, and Place: Skin graft 1975 [facility]. hysterectomy 2007 [facility] [place]. RIGHT SHOULDER SURGERY 2008 [facility] [place]. Bilateral Carpal tunnel, 2013. Shoulder 2014 Hx Anesthesia Reactions: No - Immunization History Date of Tetanus Vaccine: 2015 Date of Influenza Vaccine: 03/2017 Immunizations Up to Date: Yes Infectious Disease History: Yes Infectious Disease History: Reports: Hx Hepatitis - Hepatitis C, Hx Tuberculosis - POS PPD, neg blood test Denies: Hx Clostridium Difficile, Hx Human Immunodeficiency Virus (HIV), Hx of Known/Suspected MRSA, Hx Shingles, Hx Known/Suspected VRE, Hx Known/ Suspected VRSA, History Other Infectious Disease, Traveled Outside the [place] in Last 30 Days - Family History Known Family History: Positive: Cardiac Disease, Hypertension, Diabetes - Social History Alcohol Use: Weekly Alcohol Amount: 12 beers/week Hx Substance Use: No Substance Use Type: Reports: None Hx Tobacco Use: Yes Smoking Status (MU): Light Every Day Tobacco Smoker Type: Cigarettes Amount Used/How Often: "couple of drags daily" Length of Time of Smoking/Using Tobacco: 20 - 30 years Have You Smoked in the Last Year: Yes Review of Systems Constitutional: Other - body aches Positive: Chills. Negative: Fever Eyes: Negative Positive: Nasal Discharge. Negative: Sore Throat, Ear Ache Cardiovascular: Other - chest congestion Positive: Cough Positive: Vomiting, Nausea. Negative: Abdominal Pain, Diarrhea All Other Systems Reviewed And Are Negative: Yes Physical Exam - Summary Physical Exam Summary: General: Mildly ill appearing, no pain distress Skin: warm, color reflects adequate perfusion, dry Head: normal Eyes: EOMI, NI ENT: Posterior pharynx with mild erythema. Positive rhinorrhea. Normal bilateral TMs. Neck: supple, nontender Respiratory: CTA, breath sounds present Cardiovascular: RRR Abdomen: soft, nontender Bowel: present Musculoskeletal: normal, strength/ROM intact. No edema. Neurological: normal, sensory/motor intact, A&O x3 Psychological: affect/mood appropriate Triage Information Reviewed: Yes Vital Signs On Initial Exam: Initial Vitals Temp Pulse Resp BP Pulse Ox 99.3 F 81 20 147/74 96 06/28/17 09:11 06/28/17 09:11 06/28/17 09:11 06/28/17 09:11 06/28/17 09:11 Vital Signs Reviewed: Yes - Daphne Coma Scale Coma Scale Total: 15 Diagnostics - Vital Signs Vital Signs Temp Pulse Resp BP Pulse Ox 06/28/17 09:11 99.3 F 81 20 147/74 96 - Laboratory Lab Results: Lab Results 06/28/17 06/28/17 06/28/17 Range/Units 10:07 10:07 10:07 WBC (3.5-10.8) 10^3/ul RBC (4.0-5.4) 10^6/ul Hgb (12.0-16.0) g/dl Hct (35-47) % MCV (80-97) fL MCH (27-31) pg MCHC (31-36) g/dl RDW (10.5-15) % Plt Count (150-450) 10^3/ul MPV (7.4-10.4) um3 Neut % (Auto) (38-83) % Lymph % (Auto) (25-47) % [place] % (Auto) (1-9) % Eos % (Auto) (0-6) % Baso % (Auto) (0-2) % Absolute Neuts (auto) (1.5-7.7) 10^3/ul Absolute Lymphs (auto) (1.0-4.8) 10^3/ul Absolute Monos (auto) (0-0.8) 10^3/ul Absolute Eos (auto) (0-0.6) 10^3/ul Absolute Basos (auto) (0-0.2) 10^3/ul Absolute Nucleated RBC 10^3/ul Nucleated RBC % INR (Anticoag Therapy) 0.99 (0.77-1.02) APTT 26.5 (26.0-36.3) seconds VBG pH (7.33-7.43) VBG pCO2 (41-51) mmHg VBG pO2 (35-45) mmHg VBG HCO3 (24-28) mmol/L VBG O2 Saturation (70-80) % VBG Base Excess (0-4) Sodium 133 (133-145) mmol/L Potassium 3.5 (3.5-5.0) mmol/L Chloride 100 L (101-111) mmol/L Carbon Dioxide 24 (22-32) mmol/L Anion Gap 9 (2-11) mmol/L BUN 11 (6-24) mg/dL Creatinine 0.54 (0.51-0.95) mg/dL Est GFR ( Amer) 151.3 (>60) Est GFR (Non-Af Amer) 117.6 (>60) BUN/Creatinine Ratio 20.4 H (8-20) Glucose 246 H (70-100) mg/dL Lactic Acid 0.8 (0.5-2.0) mmol/L Calcium 8.9 (8.6-10.3) mg/dL Total Bilirubin 0.40 (0.2-1.0) mg/dL AST 33 (13-39) U/L ALT 26 (7-52) U/L Alkaline Phosphatase 55 (34-104) U/L C-Reactive Protein 4.78 (< 5.00) mg/L Total Protein 6.6 (6.4-8.9) g/dL Albumin 3.6 (3.2-5.2) g/dL Globulin 3.0 (2-4) g/dL Albumin/Globulin Ratio 1.2 (1-3) 06/28/17 06/28/17 Range/Units 10:07 11:11 WBC 7.0 (3.5-10.8) 10^3/ul RBC 4.07 (4.0-5.4) 10^6/ul Hgb 12.8 (12.0-16.0) g/dl Hct 38 (35-47) % MCV 93 (80-97) fL MCH 32 H (27-31) pg MCHC 34 (31-36) g/dl RDW 14 (10.5-15) % Plt Count 120 L (150-450) 10^3/ul MPV 9 (7.4-10.4) um3 Neut % (Auto) 71.4 (38-83) % Lymph % (Auto) 13.5 L (25-47) % [place] % (Auto) 14.5 H (1-9) % Eos % (Auto) 0.1 (0-6) % Baso % (Auto) 0.5 (0-2) % Absolute Neuts (auto) 5.0 (1.5-7.7) 10^3/ul Absolute Lymphs (auto) 1.0 (1.0-4.8) 10^3/ul Absolute Monos (auto) 1.0 H (0-0.8) 10^3/ul Absolute Eos (auto) 0 (0-0.6) 10^3/ul Absolute Basos (auto) 0 (0-0.2) 10^3/ul Absolute Nucleated RBC 0 10^3/ul Nucleated RBC % 0 INR (Anticoag Therapy) (0.77-1.02) APTT (26.0-36.3) seconds VBG pH 7.34 (7.33-7.43) VBG pCO2 46 (41-51) mmHg VBG pO2 29 L (35-45) mmHg VBG HCO3 22.8 L (24-28) mmol/L VBG O2 Saturation 58.9 L (70-80) % VBG Base Excess -1.3 L (0-4) Sodium (133-145) mmol/L Potassium (3.5-5.0) mmol/L Chloride (101-111) mmol/L Carbon Dioxide (22-32) mmol/L Anion Gap (2-11) mmol/L BUN (6-24) mg/dL Creatinine (0.51-0.95) mg/dL Est GFR ( Amer) (>60) Est GFR (Non-Af Amer) (>60) BUN/Creatinine Ratio (8-20) Glucose (70-100) mg/dL Lactic Acid (0.5-2.0) mmol/L Calcium (8.6-10.3) mg/dL Total Bilirubin (0.2-1.0) mg/dL AST (13-39) U/L ALT (7-52) U/L Alkaline Phosphatase (34-104) U/L C-Reactive Protein (< 5.00) mg/L Total Protein (6.4-8.9) g/dL Albumin (3.2-5.2) g/dL Globulin (2-4) g/dL Albumin/Globulin Ratio (1-3) Result Diagrams: 06/28/17 10:07 06/28/17 10:07 Lab Statement: Any lab studies that have been ordered have been reviewed, and results considered in the medical decision making process. - Radiology Chest XR Xray Interpretation: No Acute Changes - IMPRESSION: No evidence for acute disease. Dr. Perez has reviewed this radiology report. Radiology Interpretation Completed By: Radiologist Disposition - Course Course Of Treatment: Medications reviewed. Allergies noted. Glucose is 246. Chest XR shows no evidence for acute disease. - Diagnoses Provider Diagnoses: Bronchitis, Asthma, Nausea & vomiting Discharge - Discharge Plan Condition: Stable Disposition: HOME Prescriptions: Azithromyxin GONZALEZ (NF) [Z-Gonzalez (Zithromax) 250 mg tabs #6] 2 tab PO .TODAY, THEN 1 DAILY #6 tab GuaiFENesin DM sugar free* [Robitussin DM sugar free*] 10 ml PO Q4H PRN #120 ml PRN Reason: Cough Ondansetron ODT TAB* [Zofran 4 MG Odt TAB*] 4 mg PO Q6H PRN #10 tab.odt PRN Reason: Nausea Patient Education Materials: Asthma (ED), Acute Bronchitis (ED), Acute Nausea and Vomiting (ED) Forms: *Work Release Referrals: Dayanara RIGGS,Francheska Frey [Primary Care Provider] - Additional Instructions: FOLLOW UP WITH YOUR DOCTOR. RETURN TO THE EMERGENCY DEPARTMENT FOR ANY WORSENING OF YOUR CONDITION OR QUESTIONS OR CONCERNS. The documentation as recorded by the Brennen jolley Angela accurately reflects the service I personally performed and the decisions made by me, Kwame Perez MD.
[2017-06-28 12:52] LABS: Urine Bacteria 1+ (Absent); Urine Bilirubin Negative (Negative); Urine Glucose 3+(>=500 mg/dL) (Negative); Urine Nitrite Positive (Negative)
--- NOTE | 2017-06-30 12:28 | ED ---
Progress - Progress Note Progress Note: Pt's prelim urine reveals < 100,000 e. coli. She was d/c'd w/ zithromax for resp dx. Awaiting final sens report. Course/Dx - Course Course Of Treatment: Medications reviewed. Allergies noted. Glucose is 246. Chest XR shows no evidence for acute disease. - Diagnoses Provider Diagnoses: Bronchitis, Asthma, Nausea & vomiting
--- NOTE | 2017-07-01 12:45 | PN ---
Progress Note - Progress Note Date of Service: 07/01/17 Note: Patient urine culture grew E coli >100,000. placed on zpack which does not cover for such. will add augmentin 500mb bidX5 days. left vm with change.
== END 2017-06-28 12:13 | disposition home or self-care (01) ==
LOC: ED 09:03
DX: J45.909 Unspecified asthma, uncomplicated (principal); J34.89 Other specified disorders of nose and nasal sinuses; R11.2 Nausea with vomiting, unspecified; E10.9 Type 1 diabetes mellitus without complications; R05 Cough; R09.89 Other specified symptoms and signs involving the circulatory and respiratory systems; F17.210 Nicotine dependence, cigarettes, uncomplicated
CPT/HCPCS: 36415; 71010; 80053; 81003; 81015; 82803; 83605; 85025; 85610; 85730; 86140; 87040; 87077; 87086; 87186; 87502; 94640; 94760; 99282; A9270-GY

== ENCOUNTER 2017-07-29 06:39 | Day surgery (SDC) | payer BC ==
[~2017-07-29 06:39] MED LIST: Buffered Lidocaine 0.9% SYRIN* 5 ML/SYR SYRINGE INTRADERM ONE
[2017-07-29] MEDS ORDERED: Bupivacaine 0.25% SDV* 30 ML ONE (07:15)
[2017-07-29] MEDS ORDERED: fentaNYL* 50 MCG/ML 2 ML VIAL (100 MCG VIAL) ONE (07:21)
[2017-07-29] MEDS ORDERED: Propofol* 10 MG/ML 20 ML BTL IV PUSH ONE (07:21)
[2017-07-29] MEDS ORDERED: Midazolam* 1 MG/ML 2 ML VIAL (2 MG) ONE (07:22)
[2017-07-29] MEDS ORDERED: Naloxone* 0.4 MG/ML 1 ML VIAL IV PRN (08:08)
[2017-07-29] MEDS ORDERED: Ondansetron ODT TAB* 4 MG PO PRN (08:08)
[2017-07-29] MEDS ORDERED: Ibuprofen TAB* 600 MG ONE (08:45)
[2017-07-29] MEDS ORDERED: HYDROcodone/ACETAMIN 5-325 MG* 1 TAB ONE (08:45)
[2017-07-29 09:10] VITALS: BP 141/86
--- NOTE | 2017-07-30 00:47 | OP ---
DATE OF OPERATION: 07/29/17 [facility] DATE OF : 61 SURGEON: Linus Dickerson MD [place] CLERK: MARKUS Queen. ANESTHESIOLOGIST: Dr. Nino. ANESTHESIA: Local MAC. PRE-OP DIAGNOSIS: Left carpal tunnel syndrome. POST-OP DIAGNOSIS: Left carpal tunnel syndrome. OPERATIVE PROCEDURE: Left open carpal tunnel release. INDICATIONS: Conchita has had progressive disease. She has done well with carpal tunnel release on the right. ESTIMATED BLOOD LOSS: 2 mL. COMPLICATIONS: None. FINDINGS: As expected. DESCRIPTION OF PROCEDURE: Conchita was seen in the preoperative holding area. The correct side, site, and procedure were identified. We came back to the operating room. The arm was prepped and draped in the usual fashion. A time- out was performed. I began by exsanguinating the arm with the Esmarch and the tourniquet was inflated to 250 mmHg. A 2 to 3 cm incision was made in the standard location for an open carpal tunnel release. Dissection was carried down longitudinally through the subcutaneous tissue and palmar fascia. Transverse carpal ligament was then released off the radial aspect of the hook of the hamate. The release was completed distally and proximally. The subcutaneous tissue was released and retracted volarly and ulnarly, and the remainder of the transverse carpal ligament was released under direct visualization with the tenotomy scissors. Once I checked thoroughly again, the entirety of the nerve was released and there was absolutely no pressure on the nerve. I irrigated out the wound. Skin was closed with 4-0 Monocryl suture and dressed with Xeroform, 4x4's, sterile Webril, and an Leonid bandage. She was then taken to the recovery room in stable condition. [id number]/[facility] #: [id number] MTDD
== END 2017-07-29 09:17 | disposition home or self-care (01) ==
LOC: OREAST 06:39
PROVIDERS: ATTEND Orthopaedic Surgery Hand Surgery
DX: G56.02 Carpal tunnel syndrome, left upper limb (principal); R20.2 Paresthesia of skin; M19.042 Primary osteoarthritis, left hand; E10.9 Type 1 diabetes mellitus without complications; B18.2 Chronic viral hepatitis C; I10 Essential (primary) hypertension; F17.210 Nicotine dependence, cigarettes, uncomplicated; Z90.710 Acquired absence of both cervix and uterus
CPT/HCPCS: A9270-GY; J2250; J2704; J3010

== ENCOUNTER 2017-08-26 06:32 | Day surgery (SDC) | payer BC ==
[2017-08-26] MEDS ORDERED: Famotidine IV* 10 MG/ML 2 ML (20 mg) ONE (06:51)
[2017-08-26] MEDS ORDERED: Metoclopramide IV* 5 MG/ML 2 ML VIAL ONE (06:51)
[2017-08-26] MEDS ORDERED: Bupivacaine 0.25% SDV* 30 ML ONE (06:58)
[2017-08-26] MEDS ORDERED: Midazolam* 1 MG/ML 2 ML VIAL (2 MG) ONE (07:02)
[2017-08-26] MEDS ORDERED: fentaNYL* 50 MCG/ML 2 ML VIAL (100 MCG VIAL) ONE ×2 (07:02→08:45)
[2017-08-26] MEDS ORDERED: Lidocaine 2% PF * 5 ML VIAL ONE (07:02)
[2017-08-26] MEDS ORDERED: Propofol* 10 MG/ML 20 ML BTL IV PUSH ONE (07:02)
[2017-08-26] MEDS ORDERED: Dextrose 50% Syringe 50 ML* 25 GM/50 ML SYRINGE ONE (07:04)
[2017-08-26] MEDS ORDERED: Glucagon* 1 MG VIAL ONE (07:09)
[2017-08-26] MEDS ORDERED: oxyCODONE/Acetamin 5/325 MG* TAB PO PRN (07:19)
[2017-08-26] MEDS ORDERED: PROCHLORPERAZINE INJ 5 MG/ML 2 ML VIAL IV PRN (07:19)
[2017-08-26] MEDS ORDERED: HYDROcodone/ACETAMIN 5-325 MG* 1 TAB PO PRN (07:19)
[2017-08-26] MEDS ORDERED: Naloxone* 0.4 MG/ML 1 ML VIAL IV PRN (07:19)
[2017-08-26] MEDS ORDERED: fentaNYL* 50 MCG/ML 2 ML VIAL (100 MCG VIAL) IV PRN (07:19)
[2017-08-26] MEDS ORDERED: HYDROcodone/ACETAMIN 5-325 MG* 1 TAB ONE (08:37)
[2017-08-26 09:29] VITALS: BP 138/72
--- NOTE | 2017-08-27 06:01 | OP ---
DATE OF OPERATION: 08/26/17 - [facility] DATE OF : 61 SURGEON: Linus Dickerson MD. SAW STRAIGHTENER: MARKUS Queen. ANESTHESIOLOGIST: Dr. López. ANESTHESIA: Local MAC. PRE-OP DIAGNOSIS: Severe left median nerve neuritis after carpal tunnel surgery on 07/29/2017. POST-OP DIAGNOSIS: Severe left median nerve neuritis after carpal tunnel surgery on 07/29/2017. OPERATIVE PROCEDURE: 1. Revision left carpal tunnel release. 2. Left wrist flexor tenosynovectomy. INDICATIONS: Conchita had the carpal tunnel released back on 07/29/17 that had gone uneventfully. Unfortunately, ever since surgery she has had severe neuritis type pain. I saw her two weeks and told her she give it a couple of more weeks to see if it would calm down. She came back yesterday to the office and said she was in severe pain, it was keeping her up all night long. She is having radiating nerve type pain down into the middle and ring fingers. I have talked to her about doing revision surgery, just to make sure there is nothing compressive on the nerve. She agreed and elected to proceed. ESTIMATED BLOOD LOSS: 2 mL. COMPLICATIONS: None. FINDINGS: There was spot distally where it looked like there was a band of collagen that was compressing the nerve. Additionally, I would release the antebrachial fascia more proximally. Also there was abundant flexor tenosynovitis which was excised as it was quite abundant and very inflammatory appearing. DESCRIPTION OF PROCEDURE: Conchita was seen in the preoperative holding area. The correct site, side, and procedure were identified. We came back to the operating room where the arm was prepped and draped in the usual fashion. A time-out was performed. I infiltrated the operative area with 0.25% plain Marcaine. The arm was exsanguinated and the tourniquet inflated to 250 mmHg. I extended her prior incision distally and proximally. It was brought across the ulnar side of the wrist in Franky type fashion. Dissection was carried down and the carpal tunnel was reentered. As I came more proximally, there was pretty significant band of distal antebrachial fascia. This was released. As I came distal there was a band at the palmar fascia that appeared to be quite tight as well. This was released also. I performed a neurolysis and at this point, the nerve was freed up. It had been quite adherent to very proliferative and abundant inflammatory tenosynovitis. This was excised off of the flexor tendon at the wrist in its entirety. This took quite a bit of time to do, ultimately at the end everything was completely clean. At this point, I copiously irrigated out the wound. I checked everything one last time. There was absolutely no compression on the nerve. The nerve was intact. There was no injury to the nerve. The flexor tendons were looking nice and clean. I then closed the wound with 4-0 nylon suture freeing up 1 to 2 mm of skin off each side of the prior incision back to nice, clean, and healthy skin. The wound was dressed with Xeroform, 4x4, sterile Webril, and an Leonid bandage. Tourniquet was deflated. She was taken to recovery room in stable condition. [id number]/[facility] #: [id number] OSMIN
== END 2017-08-26 09:25 | disposition home or self-care (01) ==
LOC: OREAST 06:32
PROVIDERS: ATTEND Orthopaedic Surgery Hand Surgery
DX: G56.12 Other lesions of median nerve, left upper limb (principal); M65.832 Other synovitis and tenosynovitis, left forearm; E11.9 Type 2 diabetes mellitus without complications; I10 Essential (primary) hypertension; F17.200 Nicotine dependence, unspecified, uncomplicated; B19.20 Unspecified viral hepatitis C without hepatic coma
CPT/HCPCS: 88304; J1610; J2250; J2704; J2765; J3010

== ENCOUNTER 2018-02-06 14:39 | Emergency (ER) | payer BC ==
[2018-02-06 14:45] VITALS: BP 152/76
[2018-02-06] MEDS ORDERED: NS 0.9% 1000 ML* 1,000 ML IV ONE (15:07)
--- NOTE | 2018-02-06 15:08 | UC ---
General HPI - HPI Summary HPI Summary: patient drank over 20 beers last night---she is weak dizzy fatigued nauseated is vomiting---boluses her self with 27 units of insulin this morning-she did not take any of her hs meds - History of Current Complaint Chief Complaint: UCGeneralIllness Stated Complaint: WEAKNESS Time Seen by Provider: 02/06/18 14:42 Hx Obtained From: Patient Hx Last Menstrual Period: hysterectomy Onset/Duration: Sudden Onset, Lasting Days - today Timing: Constant Pain Intensity: 0 Associated Signs & Symptoms: Positive: Diarrhea, Nausea, Vomiting, Weakness - Allergy/Home Medications Allergies/Adverse Reactions: Allergies Allergy/AdvReac Type Severity Reaction Status Date / Time BLACK PEPPER Allergy RASH, Uncoded 08/26/17 07:19 THROAT CLOSES ENVIRONMENTAL ALLERGIES Allergy Unknown Uncoded 08/26/17 07:19 Reaction Details PMH/Surg Hx/FS Hx/Imm Hx Previously Healthy: No Endocrine History: Diabetes Cardiovascular History: Hypertension Other History Of: Hepatitis C - Surgical History Surgical History: Yes Surgery Procedure, Year, and Place: Skin graft RIGHT ANKLE 1975. Hysterectomy 2007 [facility]. RIGHT SHOULDER SURGERY 2008 [facility]. Right Carpal tunnel, 2013. RIGHT SHOULDER SURGERY 2013 [facility]. LEFT CARPAL TUNNEL RELEASE- 07/29/17 [facility] - Family History Known Family History: Positive: Cardiac Disease, Hypertension, Diabetes - Social History Occupation: Employed Full-time Lives: With Family Alcohol Use: Weekly Alcohol Amount: 18 beers/week Substance Use Type: None Smoking Status (MU): Heavy Every Day Tobacco Smoker Type: Cigarettes Amount Used/How Often: 1-3 CIGARETTES PER DAY X OFF AND ON 20 YEARS Length of Time of Smoking/Using Tobacco: 20 - 30 years Have You Smoked in the Last Year: Yes Household Exposure Type: Cigarettes - Immunization History Most Recent Influenza Vaccination: 03/2017 Most Recent Tetanus Shot: unknown Most Recent Pneumonia Vaccination: never Review of Systems Constitutional: Negative Skin: Negative Eyes: Negative ENT: Negative Respiratory: Negative Cardiovascular: Negative Gastrointestinal: Vomiting, Nausea Genitourinary: Negative Motor: Negative Neurovascular: Negative Musculoskeletal: Negative Neurological: Weakness Psychological: Negative Is Patient Immunocompromised?: No All Other Systems Reviewed And Are Negative: Yes Physical Exam Triage Information Reviewed: Yes Appearance: Ill-Appearing, Pain Distress, Thin Vital Signs: Initial Vital Signs Temp 98.0 F 02/06/18 14:40 Pulse 93 02/06/18 14:40 Resp 16 02/06/18 14:40 BP 152/76 02/06/18 14:40 Pulse Ox 100 02/06/18 14:40 Vital Signs Reviewed: Yes Eye Exam: Normal Eyes: Positive: Conjunctiva Clear ENT Exam: Normal ENT: Positive: Normal ENT inspection, Hearing grossly normal. Negative: TMs normal, Trismus, Muffled voice, Hoarse voice, Dental tenderness Dental Exam: Normal Neck exam: Normal Neck: Positive: Supple, Nontender Respiratory Exam: Normal Respiratory: Positive: Chest non-tender, Lungs clear, Normal breath sounds, No respiratory distress, No accessory muscle use Cardiovascular Exam: Normal Cardiovascular: Positive: RRR, No Murmur, Pulses Normal, Brisk Capillary Refill Abdominal Exam: Other Abdomen Description: Positive: No Organomegaly, Soft, Other: - diffuse tenderness. Negative: CVA Tenderness (R), CVA Tenderness (L) Bowel Sounds: Positive: Present Musculoskeletal Exam: Normal Musculoskeletal: Positive: Strength Intact, ROM Intact, No Edema Neurological Exam: Normal Neurological: Positive: Alert, Muscle Tone Normal Psychological Exam: Normal Skin Exam: Normal Diagnostics - Laboratory Diagnostic Studies Completed/Ordered: fsbs-168 mg/dl - EKG Cardiac Rate: NL Cardiac Rhythm: Sinus: Normal Ectopy: None ST Segment: Normal EKG Comparison: No Significant Change Course/Dx - Course Course Of Treatment: IVF, to ed by EMS - Differential Dx - Multi-Symptom Provider Diagnoses: acute nausea/vomiting, iddm - Physician Notifications Discussed Patient Care With: Jenaro Edward Time Discussed With Above Provider: 15:00 Instructed by Provider To: Transfer Discharge - Sign-Out/Discharge Documenting (check all that apply): Patient Departure - Discharge Plan Condition: Fair Disposition: TRANS HIGHER LVL OF CARE FAC Referrals: Dayanara RIGGS,Francheska Frey [Primary Care Provider] - - Billing Disposition and Condition Condition: FAIR Disposition: Trans Higher Lvl of Care Fac
--- OUTSIDE RECORDS SUMMARY | 2018-02-06 15:08 | XMS REPORT ---
:1965 External Reference #:[id number] Author Organization [facility] Address [address] [place] [address] Phone [phone] Care Team Providers Name Role Phone HCP given Primary Care Physician Unavailable Payers Type Date Identification Numbers Payment Provider Subscriber Commercial Policy Number: [id number] [employer] Ind/Ppo/Hmo/Pos Cynthia Washington PayID: [id number] [address] [address] [place] [address] Problems Date Description Provider Status Onset: 02/18/2016 Type 1 diabetes mellitus Hektor, Francheska, PA Active Onset: 02/19/2016 Disorder due to type 1 diabetes mellitus Hektor, Francheska, PA Active Onset: 02/19/2016 Sciatica Hektor, Francheska, PA Active Onset: 02/19/2016 Essential hypertension Hektor, Francheska, PA Active Onset: 02/19/2016 Allergic rhinitis Hektor, Francheska, PA Active Onset: 02/19/2016 Chronic obstructive lung disease Hektor, Francheska, PA Active Onset: 02/19/2016 Insomnia Hektor, Francheska, PA Active Onset: 02/19/2016 Chronic hepatitis C Hektor, Francheska, PA Active Onset: 02/19/2016 Tobacco user Hektor, Francheska, PA Active Onset: 06/02/2016 Polyp of colon Hektor, Francheska, PA Active Onset: 06/02/2016 Anemia Hektor, Francheska, PA Active Onset: 06/03/2016 Multiple complications of type 1 diabetes Hektor, Francheska, PA Active mellitus Onset: 12/08/2016 Type 1 diabetes mellitus uncontrolled Hektor, Francheska, PA Active Social History Type Date Description Comments Education Ged Marital Status Lives With Roommate Occupation Classroom Coordinator Work Status Currently Working Cigarette Use 05/19/2017 Patient is a current cigarette trying to quit smoker, smokes some days ETOH Use Occassional Alcohol Recreational Drug Use Denies Drug Use Smoking 12/08/2016 Patient is a current smoker, trying to quit smokes some days Exercise Type/Frequency Exercises sporadically Sun Exposure Uses sunscreen Seat Belt/Car Seat Yes Currently Active Patient is currently not sexually active Contraceptive Methods Tubal Ligation Age 1st [place] 11 Years Old Additional Info Sexual Partners >10 Allergies, Adverse Reactions, Alerts Date Description Reaction Status Severity Comments 02/19/2016 NKDA active 06/13/2017 Black Pepper active Medications Medication Date Status Form Strength Qnty SIG Indications Ordering Provider Nicotine 09/14 Active Patches 14mg/24HR 42uni 1 patch co 24HR ts topically mariama Whitt M.DSoila Spiriva Respimat 05/18 Active Aerosol 2.5mcg/Ac two t inhalations (5mcg) once daily (maximum: 2 inhalations per 24 hours). Allergy Inj 03/16 Active twice weekly Cyclobenzaprine 02/09 Active Tablets 5mg 90tab 1 tab by M54.32 Hekcecelia, HCL s mouth three MARKUS Pritchard times a day as needed spasms Clotrimazole/Beta 02/09 Active Cream 1-0.05% 45gm [facility] MARKUS Pritchard Dipropionate areas twice a day as needed Nicorette 07/30 Active Gum 2mg 170un 1 piece by Hek its mouth q2 MARKUS Pritchard hours as needed Nicotrol 07/30 Active Inhaler 10mg 168un Use 1 Silcoff its Cartridge Up Jose Eduardo To 16 Times M.D. Per Day as Needed Tessalon Perles 02/18 Active Capsules 100mg 90cap 1 cap po tid J30.9 Dayanara s prn cough MARKUS Pritchard Levocetirizine 02/18 Active Tablets 5mg 30tab 1 tab by J30.9 Juana Dihydrochloride s mouth daily Zachary Whitt Valsartan Active Tablets 80mg 90tab 1 tab by Juana, s mouth daily Zachary Whitt Vitamin D3 Active Capsules 2000Unit 90cap 1 cap by Hektor, /0000 s mouth daily MARKUS Pritchard Novolog Active Solution 100Unit/M 30ml use as Silcoff, / L directed Jose Eduardo, with insulin M.D. pump (approx 60 units daily) Oxycodone-Acetami Active Tablets 5-325mg 10tab 1 tab by M54.30 Silcoff, nophen /0000 s mouth daily Jose Eduardo, as needed M.D. Symbicort Active Aerosol 160-4.5mc daily Unknown /0000 g/Act Proair HFA Active Aerosol 108(90Bas as needed Unknown 0000 e) mcg/Act Zolpidem Tartrate Active Tablets 10mg as needed Unknown 0000 for sleep SSD Active Cream 1% Unknown Ibu Active Tablets 800mg 90tab take one Silcoff, / s tablet by Jose Eduardo mouth three M.D. times a day as needed Montelukast Active Tablets 10mg 90tab 1 by mouth Silcoff, Sodium /0000 s daily for Jose Eduardo, allergies M.D. Nicotine 07/30 Hx Patches 7mg/24HR 28uni Use 1 Patch Silcoff 24HR ts Topically Jose Eduardo, - Daily as M.D. 09/14 Iron Hx Tablets 325(65Fe) 1 by mouth Unknown /0000 mg twice a day - 01/17 Immunizations CPT Code Status Date Vaccine Lot # [id number] Given 03/17/2017 Influenza Virus Vaccine, Quadrivalent, Split, [id number] Preservative Free Vital Signs Date Vital Result Comment 02/01/2018 BP Systolic 128 mmHg BP Diastolic 74 mmHg Weight 152.00 lb 01/18/2018 BP Systolic 130 mmHg BP Diastolic 76 mmHg Weight 149.00 lb w/shoes 11/17/2017 BP Systolic 138 mmHg BP Diastolic 82 mmHg 11/16/2017 BP Systolic 130 mmHg BP Diastolic 80 mmHg Height 62.75 inches 5'2.75" with sneakers Weight 148.00 lb with sneakers BMI (Body Mass Index) 26.4 kg/m2 09/14/2017 BP Systolic 132 mmHg BP Diastolic 80 mmHg Weight 142.00 lb 05/19/2017 BP Systolic 120 mmHg BP Diastolic 72 mmHg Weight 157.00 lb 03/17/2017 BP Systolic 106 mmHg BP Diastolic 70 mmHg 02/09/2017 BP Systolic 126 mmHg BP Diastolic 72 mmHg Height 63 inches 5'3" w/shoes Weight 149.00 lb w/shoes BMI (Body Mass Index) 26.4 kg/m2 12/08/2016 BP Systolic 124 mmHg BP Diastolic 70 mmHg Weight 140.00 lb w/shoes 10/07/2016 BP Systolic 134 mmHg BP Diastolic 70 mmHg Weight 138.00 lb 07/30/2016 BP Systolic 126 mmHg BP Diastolic 72 mmHg Height 63.25 inches 5'3.25" Weight 130.00 lb BMI (Body Mass Index) 22.8 kg/m2 06/03/2016 BP Systolic 112 mmHg BP Diastolic 70 mmHg Weight 138.00 lb 04/08/2016 BP Systolic 134 mmHg BP Diastolic 70 mmHg Weight 137.50 lb 02/19/2016 BP Systolic 124 mmHg BP Diastolic 70 mmHg Height 62 inches 5'2" Weight 145.00 lb BMI (Body Mass Index) 26.5 kg/m2 Results Test Date Test Result H/L Range Note Laboratory test 11/30/2017 Hepatitis C Rna [id number] IU/mL Undetected 1 finding Quant Hepatitis C Genotype 1a Undetected 2 Urine Culture And 11/25/2017 Urine Culture SEE RESULT BELOW 3 Sensitivities Laboratory test finding 11/25/2017 Hemoglobin A1c 9.6 % High 4.0-5.6 4 (Glyco HGB) Hepatitis C Antibody High Reactive Nonreactive 5 Comp Metabolic Panel 11/25/2017 Sodium 140 mmol/L 139-145 Potassium 3.8 mmol/L 3.5-5.0 Chloride 105 mmol/L 101-111 Co2 Carbon Dioxide 27 mmol/L 22-32 Anion Gap 8 mmol/L 2-11 Glucose 50 mg/dL Low 70-100 Blood Urea Nitrogen 14 mg/dL 6-24 Creatinine 0.52 mg/dL 0.51-0.95 BUN/Creatinine Ratio 26.9 High 8-20 Calcium 9.8 mg/dL 8.6-10.3 Total Protein 7.2 g/dL 6.4-8.9 Albumin 4.1 g/dL 3.2-5.2 Globulin 3.1 g/dL 2-4 Albumin/Globulin Ratio 1.3 1-3 Total Bilirubin 0.50 mg/dL 0.2-1.0 Alkaline Phosphatase 84 U/L 34-104 Alt 34 U/L 7-52 Ast 34 U/L 13-39 Egfr Non- 122.9 >60 Egfr 158.0 >60 6 Lipid Profile (Trig/Chol/HDL) 11/25/2017 Triglycerides 63 mg/dL 7 Cholesterol 193 mg/dL 8 HDL Cholesterol 80.2 mg/dL 9 LDL Cholesterol 100 mg/dL 10 Urine Microalbumin Random 11/25/2017 Ur Microalbumin (mg/L) 65.5 mg/L Urine Creatinine 80.72 mg/dL Urine Microalbumin/Creatinine 81.1 ug/mg High <31 Urinalysis Profile 11/25/2017 Urine Color Yellow Urine Appearance Clear Urine Specific Heflin 1.017 1.010-1.030 Urine pH 6.0 5-9 Urine Urobilinogen Negative Negative Urine Ketones Negative Negative Urine Protein Negative Negative Urine Leukocytes Negative Negative Urine Blood 1+ Negative Urine Nitrite Negative Negative Urine Bilirubin Negative Negative Urine Glucose 3+(>=500 mg/dL) Negative Urine White Blood Cell Trace(0-5/hpf) Absent Urine Red Blood Cell 2+(6-10/hpf) Absent Urine Bacteria Absent Absent Urine Squamous Epithelial Cell Present Absent Laboratory test finding 11/16/2017 Hemoglobin A1c 9.3 Quantiferon Gold TB 10/05/2017 QuantiFERON-Tb Gold Plus Negative Negative 11 TB1 Ag minus Nil Result 0.01 IU/mL TB2 Ag minus Nil Result 0 IU/mL TB Mitogen minus Nil Result > 10.00 IU/mL TB Nil Result 0.03 IU/mL 12 Laboratory test finding 09/14/2017 Hemoglobin A1c 9.2 Laboratory test finding 08/26/2017 Point of Care Glucose 72 mg/dL 70-100 13 Laboratory test finding 08/26/2017 Point of Care Glucose 132 mg/dL High 70 -100 14 Laboratory test finding 08/26/2017 Point of Care Glucose 57 mg/dL Low 70- 100 15 Laboratory test finding 07/29/2017 Point of Care Glucose 71 mg/dL 70-100 16 Urinalysis Profile 06/28/2017 Urine Color Yellow Urine Appearance Cloudy Urine Specific Heflin 1.025 1.010-1.030 Urine pH 5.0 5-9 Urine Urobilinogen Negative Negative Urine Ketones 2+ Negative Urine Protein 1+(30 mg/dL) Negative Urine Leukocytes Trace Negative Urine Blood 3+ Negative Urine Nitrite Positive Negative Urine Bilirubin Negative Negative Urine Glucose 3+(>=500 mg/dL) Negative Urine White Blood Cell 3+(>20/hpf) Absent Urine Red Blood Cell 3+(>10/hpf) Absent Urine Bacteria 1+ Absent Urine Squamous Epithelial Cell Present Absent Laboratory test finding 06/28/2017 Blood Culture SEE RESULT BELOW 17, 18 Laboratory test finding 06/28/2017 Inr/Protime 0.99 0.77-1.02 19 Partial Thrombo Time PTT 26.5 seconds 26.0-36.3 Rapid Influenza A & B 06/28/2017 Influenza A Molecular NEGATIVE Negative 20 Molecular Influenza B Molecular NEGATIVE Negative Laboratory test finding 06/28/2017 Point of Care Glucose 190 mg/dL High 70 -100 21 Venous Blood Gas 06/28/2017 Venous Blood pH 7.34 7.33-7.43 Venous Pco2 46 mmHg 41-51 Venous Po2 29 mmHg Low 35-45 Venous O2 Saturation 58.9 % Low 70-80 Venous Blood Base Excess -1.3 Low 0-4 22 Venous Bicarbonate Hco3 22.8 mmol/L Low 24-28 Comp Metabolic Panel 06/28/2017 Sodium 133 mmol/L 133-145 Potassium 3.5 mmol/L 3.5-5.0 Chloride 100 mmol/L Low 101-111 Co2 Carbon Dioxide 24 mmol/L 22-32 Anion Gap 9 mmol/L 2-11 Glucose 246 mg/dL High 70-100 Blood Urea Nitrogen 11 mg/dL 6-24 Creatinine 0.54 mg/dL 0.51-0.95 BUN/Creatinine Ratio 20.4 High 8-20 Calcium 8.9 mg/dL 8.6-10.3 Total Protein 6.6 g/dL 6.4-8.9 Albumin 3.6 g/dL 3.2-5.2 Globulin 3.0 g/dL 2-4 Albumin/Globulin Ratio 1.2 1-3 Total Bilirubin 0.40 mg/dL 0.2-1.0 Alkaline Phosphatase 55 U/L 34-104 Alt 26 U/L 7-52 Ast 33 U/L 13-39 Egfr Non- 117.6 >60 Egfr 151.3 >60 23 CBC Auto Diff 06/28/2017 White Blood Count 7.0 10^3/uL 3.5-10.8 Red Blood Count 4.07 10^6/uL 4.0-5.4 Hemoglobin 12.8 g/dL 12.0-16.0 Hematocrit 38 % 35-47 Mean Corpuscular Volume 93 fL 80-97 Mean Corpuscular Hemoglobin 32 pg High 27-31 Mean Corpuscular HGB Conc 34 g/dL 31-36 Red Cell Distribution Width 14 % 10.5-15 Platelet Count 120 10^3/uL Low 150-450 Mean Platelet Volume 9 um3 7.4-10.4 Abs Neutrophils 5.0 10^3/uL 1.5-7.7 Abs Lymphocytes 1.0 10^3/uL 1.0-4.8 Abs Monocytes 1.0 10^3/uL High 0-0.8 Abs Eosinophils 0 10^3/uL 0-0.6 Abs Basophils 0 10^3/uL 0-0.2 Abs Nucleated RBC 0 10^3/uL Granulocyte % 71.4 % 38-83 Lymphocyte % 13.5 % Low 25-47 Monocyte % 14.5 % High 1-9 Eosinophil % 0.1 % 0-6 Basophil % 0.5 % 0-2 Nucleated Red Blood Cells % 0 Laboratory test finding 06/28/2017 C Reactive Protein 4.78 mg/L < 5.00 24 Lactic Acid 0.8 mmol/L 0.5-2.0 25 Blood Culture SEE RESULT BELOW 26 Laboratory test 06/28/2017 Rapid Influenza A B SEE RESULT 27 finding Antigen BELOW Laboratory test 06/28/2017 Urine Culture And SEE RESULT 28 finding Sensitivities BELOW Laboratory test 05/19/2017 Hemoglobin A1c 9.1 finding Laboratory test 02/09/2017 Hemoglobin A1c 10.2 finding Laboratory test 01/13/2017 Surgical Pathology SEE RESULT 29, 30 finding BELOW Laboratory test 12/08/2016 Hemoglobin A1c 10.1 finding Order 10/07/2016 Hemoglobin A1c 9.1 Laboratory test 08/27/2016 Surgical Pathology SEE RESULT 31, 32 finding BELOW Laboratory test 08/12/2016 Point of Care Glucose > 444 mg/dL High 74-106 33 finding Urinalysis Profile 08/12/2016 Urine Color Straw Urine Appearance Clear Urine Specific [place]in 1.014 1.010-1.030 Urine pH 5.0 5-9 Urine Urobilinogen Negative Negative Urine Ketones 2+ Negative Urine Protein Negative Negative Urine Leukocytes Negative Negative Urine Blood Negative Negative Urine Nitrite Negative Negative Urine Bilirubin Negative Negative Urine Glucose 3+(>=500 mg/dL) Negative Rapid Influenza A & B 08/12/2016 Influenza A Molecular NEGATIVE Negative 34 Molecular Influenza B Molecular NEGATIVE Negative Laboratory test 08/12/2016 Rapid Influenza A B SEE RESULT BELOW 35 finding Antigen CBC No Diff 08/12/2016 White Blood Count 10.0 10^3/uL 3.5-10.8 Red Blood Count 5.07 10^6/uL 4.0-5.4 Hemoglobin 14.9 g/dL 12.0-16.0 Hematocrit 48 % High 35-47 Mean Corpuscular Volume 95 fL 80-97 Mean Corpuscular Hemoglobin 29 pg 27-31 Mean Corpuscular HGB Conc 31 g/dL 31-36 Red Cell Distribution Width 16 % High 10.5-15 Platelet Count 174 10^3/uL 150-450 Mean Platelet Volume 11 um3 High 7.4-10.4 Comp Metabolic Panel 08/12/2016 Sodium 128 mmol/L Low 133-145 Chloride 94 mmol/L Low 101-111 Glucose 450 mg/dL High 70-100 Blood Urea Nitrogen 17 mg/dL 6-24 Creatinine 1.00 mg/dL High 0.51-0.95 BUN/Creatinine Ratio 17.0 8-20 Calcium 9.4 mg/dL 8.6-10.3 Total Protein 8.2 g/dL 6.4-8.9 Albumin 4.4 g/dL 3.2-5.2 Globulin 3.8 g/dL 2-4 Albumin/Globulin Ratio 1.2 1-3 Total Bilirubin 0.60 mg/dL 0.2-1.0 Alkaline Phosphatase 62 U/L 34-104 Alt 49 U/L 7-52 Egfr Non- 58.0 >60 Egfr 74.6 >60 36 Co2 Carbon Dioxide 9 mmol/L Low 22-32 37 Potassium 5.4 mmol/L High 3.5-5.0 Anion Gap 25 mmol/L High 2-11 Ast 56 U/L High 13-39 Laboratory test finding 08/12/2016 Hemoglobin A1c (Glyco 11.7 % High Less than 6.0 38 HGB) Beta Hydroxy Butyrate 11.6 mmol/L <0.4 39 Basic Metabolic Panel 08/12/2016 Sodium 130 mmol/L Low 133-145 Chloride 99 mmol/L Low 101-111 Glucose 423 mg/dL High 70-100 Blood Urea Nitrogen 17 mg/dL 6-24 Creatinine 0.92 mg/dL 0.51-0.95 BUN/Creatinine Ratio 18.5 8-20 Calcium 9.0 mg/dL 8.6-10.3 Egfr Non- 63.9 >60 Egfr 82.1 >60 40 Potassium 5.5 mmol/L High 3.5-5.0 Co2 Carbon Dioxide 8 mmol/L Low 22-32 41 Anion Gap 23 mmol/L High 2-11 Laboratory test finding 08/12/2016 Lipase 10 U/L Low 11.0-82.0 Troponin-I (TnI) 0.00 ng/mL <0.04 42 Laboratory test finding 07/30/2016 Hemoglobin A1c 10.9 CBC Auto Diff 02/25/2016 White Blood Count 6.1 10^3/uL 3.5-10.8 Red Blood Count 4.08 10^6/uL 4.0-5.4 Hemoglobin 13.3 g/dL 12.0-16.0 Hematocrit 39 % 35-47 Mean Corpuscular Volume 94 fL 80-97 Mean Corpuscular Hemoglobin 33 pg High 27-31 Mean Corpuscular HGB Conc 35 g/dL 31-36 Red Cell Distribution Width 15 % 10.5-15 Platelet Count 149 10^3/uL Low 150-450 Mean Platelet Volume 10 um3 7.4-10.4 Abs Neutrophils 3.2 10^3/uL 1.5-7.7 Abs Lymphocytes 2.1 10^3/uL 1.0-4.8 Abs Monocytes 0.6 10^3/uL 0-0.8 Abs Eosinophils 0.2 10^3/uL 0-0.6 Abs Basophils 0.1 10^3/uL 0-0.2 Abs Nucleated RBC 0 10^3/uL Granulocyte % 51.9 % 38-83 Lymphocyte % 34.1 % 25-47 Monocyte % 9.5 % High 1-9 Eosinophil % 3.5 % 0-6 Basophil % 1.0 % 0-2 Nucleated Red Blood Cells % 0 Comp Metabolic Panel 02/25/2016 Sodium 135 mmol/L 133-145 Potassium 3.9 mmol/L 3.5-5.0 Chloride 102 mmol/L 101-111 Co2 Carbon Dioxide 28 mmol/L 22-32 Anion Gap 5 mmol/L 2-11 Glucose 194 mg/dL High 70-100 Blood Urea Nitrogen 11 mg/dL 6-24 Creatinine 0.50 mg/dL Low 0.51-0.95 BUN/Creatinine Ratio 22.0 High 8-20 Calcium 9.0 mg/dL 8.6-10.3 Total Protein 6.5 g/dL 6.4-8.9 Albumin 3.6 g/dL 3.2-5.2 Globulin 2.9 g/dL 2-4 Albumin/Globulin Ratio 1.2 1-3 Total Bilirubin 0.40 mg/dL 0.2-1.0 Alkaline Phosphatase 69 U/L 34-104 Alt 33 U/L 7-52 Ast 37 U/L 13-39 Egfr Non- 129.6 >60 Egfr 166.6 >60 43 Urinalysis Profile 02/25/2016 Urine Color Yellow Urine Appearance Cloudy Urine Specific [place] 1.016 1.010-1.030 Urine pH 6.0 5-9 Urine Urobilinogen Negative Negative Urine Ketones Negative Negative Urine Protein Negative Negative Urine Leukocytes Negative Negative Urine Blood Negative Negative Urine Nitrite Negative Negative Urine Bilirubin Negative Negative Urine Glucose 3+(>=500 mg/dL) Negative Lipid Profile (Trig/Chol/HDL) 02/25/2016 Triglycerides 61 mg/dL 44 Cholesterol 162 mg/dL 45 HDL Cholesterol 65.1 mg/dL 46 LDL Cholesterol 85 mg/dL 47 Laboratory test finding 02/25/2016 TSH (Thyroid Stim Horm) 3.01 mcIU/mL 0.34-5.60 Vitamin D Total 25(Oh) 28.3 ng/mL Low 30-50 Hemoglobin A1c (Glyco HGB) 8.8 % High Less than 6.0 48 Hepatitis C Rna Quant [id number] IU/mL Undetected 49 1 Result in log IU/mL is 7.05. ADDITIONAL INFORMATION The quantification range of this assay is 15 to 100,000,000 IU/mL (1.18 log to 8.00 log IU/mL). Testing was performed using the cameron HCV test ([employer] with the [employer] System. Test Performed by: [facility] [address] [place] [address] 2 ADDITIONAL INFORMATION This test was performed using the [employer] RealTime HCV Genotype II assay ([employer] [place], [place]). Test Performed by: [facility] [address] [place] [address] 3 SEE RESULT BELOW Name: ÁLVAROCYNTHIA M : [address]: Francheska RIGGS Acct: [id number] Unit: [id number] AGE: 52 Location: [facility] Re11/25/17 SEX: F Status: REG REF SPEC: [id number] SONIA: 11/25/[address]: Francheska RIGGS REQ: [id number] RECD: 11/25/17 STATUS: COMP _ SOURCE: URINE SPDESC: ORDERED: Urine Culture Procedure Result Reported Site Urine Culture Final 11/26/17- 0859 ML No growth of clinically significant organisms * ML - Main Lab . END OF REPORT DEPARTMENT OF PATHOLOGY, [address] [place] [address] Van Dominguez M.D. Director [facility] # [id number] 4 Therapeutic target for the treatment of diabetes mellitus patients is <7% HBA1C, and in selective patients <6.0%. Please refer to [place] Diabetes Association diabetic care guidelines for further information. 5 High reactive sample are considered positive for Hepatitis C 6 Because ethnic data is not always readily available, this report includes an eGFR for both -Americans and non- Americans. The National Kidney Disease Education Program (NKDEP) does not endorse the use of the MDRD equation for patients that are not between the ages of 18 and 70, are , have extremes of body size, muscle mass, or nutritional status, or are non- or non-. According to the National Kidney Foundation, irrespective of diagnosis, the stage of the disease is based on the level of kidney function: Stage Description GFR(mL/min/1.73 m(2)) 1 Kidney damage with normal or decreased GFR 90 2 Kidney damage with mild decrease in GFR 60-89 3 Moderate decrease in GFR 30-59 4 Severe decrease in GFR 15-29 5 Kidney failure <15 (or dialysis) 7 Desirable: <150 Borderline High: 150-199 High: 200-499 Very High: >500 8 Desirable: <200 Borderline High: 200-239 High: >239 9 Low: <40 Desirable: 40-60 High: >60 10 Desirable: <100 Near Optimal: 100-129 Borderline High: 130-159 High: 160-189 Very High: >189 11 No interferon-gamma response to M. tuberculosis antigens was detected. Infection with M. tuberculosis is unlikely. A single negative result does not exclude infection with M. tuberculosis. In patients at high risk for M.tuberculosis infection, a second test should be considered in accordance with the 2017 ATS/IDSA/CDC Clinical Practice Guidelines for Diagnosis of Tuberculosis in Adults and Children [Nirmala COBB et. al. Clin. Infect. Dis. 2017;64(2):111-115]. 12 Test Performed by: [facility] [address] [place] [address] 13 Onion Tier: [id number] 14 Onion Tier: [id number] 15 Onion Tier: [id number] 16 Onion Tier: [id number] 17 Patient is On Antibiotics? NO 18 SEE RESULT BELOW Name: CYNTHIA WASHINGTON : [address]: Kwame Perez MD Acct: [id number] Unit: [id number] AGE: 52 Location: ED Re06/28/17 SEX: F Status: DEP ER SPEC: [id number] SONIA: 06/28/17-[address]: Kwame Perez MD REQ: [id number] RECD: 06/28/17 STATUS: CINDY TORRES DR: Francheska Nichole RPA-C _ SOURCE: BLOOD,VENO SPDESC: ORDERED: Blood Cult COMMENTS: Patient is On Antibiotics? NO Procedure Result Reported Site Aerobic Culture Bottle Final 07/03/17- 1020 ML No Growth Day 5 Anaerobic Culture Bottle Final 07/03/17- 1020 ML No Growth Day 5 * ML - MAIN LAB ([facility]) . END OF REPORT * ML=Testing performed at Main Lab DEPARTMENT OF PATHOLOGY, [address] [place] [address] Van Dominguez M.D. Director [facility] # [id number] 19 Please note the change in INR reference range effective 17. 20 Onion Tier: [id number] 21 Onion Tier: [id number] 22 Reference ranges based on room air. 23 Because ethnic data is not always readily available, this report includes an eGFR for both -Americans and non- Americans. The National Kidney Disease Education Program (NKDEP) does not endorse the use of the MDRD equation for patients that are not between the ages of 18 and 70, are , have extremes of body size, muscle mass, or nutritional status, or are non- or non-. According to the National Kidney Foundation, irrespective of diagnosis, the stage of the disease is based on the level of kidney function: Stage Description GFR(mL/min/1.73 m(2)) 1 Kidney damage with normal or decreased GFR 90 2 Kidney damage with mild decrease in GFR 60-89 3 Moderate decrease in GFR 30-59 4 Severe decrease in GFR 15-29 5 Kidney failure <15 (or dialysis) 24 Acute inflammation: >10.00 25 [facility] Severe Sepsis and Septic Shock Management Bundle Measure requires all lactic acids initially measuring >2.0 mmol/L be repeated. 26 SEE RESULT BELOW Name: CYNTHIA WASHINGTON : [address]: Kwame Perez MD Acct: [id number] Unit: [id number] AGE: 52 Location: ED Re06/28/17 SEX: F Status: DEP ER SPEC: [id number] SONIA: 06/28/17-[address]: Kwame Perez MD REQ: [id number] RECD: 06/28/17 STATUS: LIVAN TORRES DR: [facility] _ SOURCE: BLOOD,VENO SPDESC: ORDERED: Blood Cult COMMENTS: Patient is On Antibiotics? NO Procedure Result Reported Site Aerobic Culture Bottle Preliminary 06/29/17- 1018 ML No Growth Day 1 Anaerobic Culture Bottle Preliminary 06/29/17- 1016 ML No Growth Day 1 * ML - MAIN LAB ([facility]) . END OF REPORT * ML=Testing performed at Main Lab DEPARTMENT OF PATHOLOGY, [address] [place] [address] Van Dominguez M.D. Director [facility] # [id number] 27 SEE RESULT BELOW Name: CYNTHIA WASHINGTON : [address]: Kwame Perez MD Acct: [id number] Unit: [id number] AGE: 52 Location: ED Re06/28/17 SEX: F Status: REG ER SPEC: [id number] SONIA: 06/28/17-[address]: Kwame Perez MD REQ: [id number] RECD: 06/28/17 STATUS: CINDY TORRES DR: Francheska Nichole RPA-C _ SOURCE[facility]: ORDERED: Flu A B Request Procedure Result Reported Site Rapid Influenza A B Request Final 06/28/17- 1206 ML Specimen received for Influenza A/B Molecular testing * ML - MAIN LAB ([facility]) . END OF REPORT * ML=Testing performed at Main Lab DEPARTMENT OF PATHOLOGY, [address] [place] [address] Van Dominguez M.D. Director [facility] # [id number] 28 SEE RESULT BELOW Name: CYNTHIA WASHINGTON : [address]: Kwame Perez MD Acct: [id number] Unit: [id number] AGE: 52 Location: ED Re06/28/17 SEX: F Status: DEP ER SPEC: [id number] SONIA: 06/28/17-[address] [facility] [address]: Kwame Perez MD REQ: [id number] RECD: 06/28/17-1218 STATUS: CINDY TORRES DR: Francheska RIGGS _ SOURCE: URINE SPDESC: ORDERED: Urine Culture Procedure Result Reported Site Urine Culture Final 06/30/17- 37 ML Organism 1 ESCHERICHIA COLI [place] Count >100,000 (Many) CFU/ML Organism 2 NORMAL EDGARDO [place] Count 25-50,000 (Moderate) CFU/ML 1. ESCHERICHIA COLI M.I.C. RX --------- ------ Ampicillin <=2 S Cefazolin <=4 S Cefepime <=1 S Ceftriaxone <=1 S Ciprofloxacin <=0.25 S Gentamicin <=1 S Levofloxacin <=0.12 S Meropenem <=0.25 S Nitrofurantoin <=16 S Tetracycline <=1 S Pipercillin/Tazobactam <=4 S Trimethoprim/Sulfamethoxazole <=20 S Amoxicillin/Clavulanic Acid <=2 S Aztreonam <=1 S Contact the Microbiology Department for any additional antibiotic reporting. * ML - [facility]) . END OF REPORT * ML=Testing performed at Main Lab DEPARTMENT OF PATHOLOGY, [address] [place] [address] Van Dominguez M.D. Director [facility] # [id number] 29 [id number] 30 SEE RESULT BELOW Name: CYNTHIA WASHINGTON : [address]: Kal Pak MD Acct: [id number] Unit: [id number] AGE: 51 Location: [facility] Re01/13/17 SEX: F Status: REG REF SPEC: [id number] SONIA: 01/13/17-15[address] [facility] [address]: Kal Pak MD REQ: [id number] RECD: 01/13/17 STATUS: MERON TORRES DR: Francheska Nichole [facility] _ ORDERED: LEVEL 3 COMMENTS: [id number] FINAL DIAGNOSIS Skin, left ear lobule, excision: -- Epidermal inclusion cyst. PRE-OPERATIVE DIAGNOSIS Epidermal inclusion cyst. GROSS DESCRIPTION The specimen is received in formalin labeled, Excision Cyst Left Ear Lobule, and consists of a 1.0 x 0.4 x 0.3 cm allen focally disrupted unilocular cyst containing allen- white friable material. The specimen is inked, serially sectioned and entirely submitted in one cassette. Signed (signature on file) Van Dominguez MD 1214 END OF REPORT * ML=Testing performed at Main Lab DEPARTMENT OF PATHOLOGY, [address] [place] [address] Van Dominguez M.D. Director [facility] # [id number] SEE RESULT BELOW Name: CYNTHIA WASHINGTON Fabien : [address]: Francheska BECKC Acct: [id number] Unit: [id number] AGE: 51 Location: [facility] Re08/27/16 SEX: F Status: REG REF SPEC: [id number] SONIA: 08/27/[address] [facility] [address]: Bandar Bishop MD REQ: [id number] RECD: 08/27/16 STATUS: MERON TORRES DR: Francheska RIGGS _ ORDERED: LEVEL IV COMMENTS: [id number] FINAL DIAGNOSIS Breast, right, 8-9:00, 2 cm from nipple, biopsy: -- Benign breast tissue with non-proliferative nodular fibrocystic change. -- No evidence of invasive or in situ carcinoma. COMMENT: Clinical and radiologic correlation is recommended. CLINICAL HISTORY PRE-OPERATIVE DIAGNOSIS Right breast mass at 8-9 o'clock 2 cm from nipple 1.1 x 0.5 x 1.5 cm POST-OPERATIVE DIAGNOSIS Differential diagnosis: Fibrocystic changes versus fibroadenoma; indeterminate calcifications less likely; palpable lump GROSS DESCRIPTION The specimen is received in formalin labeled, Right Breast, and consists of two allen-pink irregular to cylindrical fibrofatty soft tissue fragments measuring 0.7 x 0.3 x 0.2 cm and 1.7 x 0.3 x 0.2 cm. Entirely submitted, one cassette. Signed (signature on file) Amanda Santiago MD 05/04 1031 END OF REPORT * ML=Testing performed at Main Lab DEPARTMENT OF PATHOLOGY, [address] [place] [address] Van Dominguez M.D. Director [facility] # [id number] 33 Onion Tier: [id number] POP SALDIVAR 34 Onion Tier: [id number] MARNIE SONG 35 SEE RESULT BELOW Name: CYNTHIA WASHINGTON : [address]: Richmond Leon MD Acct: [id number] Unit: [id number] AGE: 51 Location: ED Re08/12/16 SEX: F Status: REG ER SPEC: [id number] SONIA: 08/12/[address]: Richmond Leon MD REQ: [id number] RECD: 08/12/16 STATUS: CINDY TORRES DR: Francheska Nichole [facility]- _ SOURCE: [facility]: ORDERED: Flu A B Request Procedure Result Reported Site Rapid Influenza A B Request Final 08/12/16- 180 ML Specimen received for Influenza A/B Molecular testing * ML - MAIN LAB ([facility]) . END OF REPORT * ML=Testing performed at Main Lab DEPARTMENT OF PATHOLOGY, [address] [place] [address] Van Dominguez M.D. Director [facility] # [id number] 36 Because ethnic data is not always readily available, this report includes an eGFR for both -Americans and non- Americans. The National Kidney Disease Education Program (NKDEP) does not endorse the use of the MDRD equation for patients that are not between the ages of 18 and 70, are , have extremes of body size, muscle mass, or nutritional status, or are non- or non-. According to the National Kidney Foundation, irrespective of diagnosis, the stage of the disease is based on the level of kidney function: Stage Description GFR(mL/min/1.73 m(2)) 1 Kidney damage with normal or decreased GFR 90 2 Kidney damage with mild decrease in GFR 60-89 3 Moderate decrease in GFR 30-59 4 Severe decrease in GFR 15-29 5 Kidney failure <15 (or dialysis) 37 Verbal to [id number] by [id number] at 1902 on 08/12/16. Results read back accurately. 38 Therapeutic target for the treatment of diabetes Mellitus patients is <7% HBA1C, and in selective patients <6.0%.Please refer to [place] [employer] Diabetic care guidelines for further information. 39 Test Performed by: [place] [address] Manager In Training: Kwame Robles II, M.D., Ph.D. 40 Because ethnic data is not always readily available, this report includes an eGFR for both -Americans and non- Americans. The National Kidney Disease Education Program (NKDEP) does not endorse the use of the MDRD equation for patients that are not between the ages of 18 and 70, are , have extremes of body size, muscle mass, or nutritional status, or are non- or non-. According to the National Kidney Foundation, irrespective of diagnosis, the stage of the disease is based on the level of kidney function: Stage Description GFR(mL/min/1.73 m(2)) 1 Kidney damage with normal or decreased GFR 90 2 Kidney damage with mild decrease in GFR 60-89 3 Moderate decrease in GFR 30-59 4 Severe decrease in GFR 15-29 5 Kidney failure <15 (or dialysis) 41 Critical Result CO2:8 Called to [id number] at: 19:45:04 by:[id number] Read back by:[id number] 42 99th percentile=0.04 ng/mL Troponin results at [facility] and [facility] are not interchangeable. 43 Because ethnic data is not always readily available, this report includes an eGFR for both -Americans and non- Americans. The National Kidney Disease Education Program (NKDEP) does not endorse the use of the MDRD equation for patients that are not between the ages of 18 and 70, are , have extremes of body size, muscle mass, or nutritional status, or are non- or non-. According to the National Kidney Foundation, irrespective of diagnosis, the stage of the disease is based on the level of kidney function: Stage Description GFR(mL/min/1.73 m(2)) 1 Kidney damage with normal or decreased GFR 90 2 Kidney damage with mild decrease in GFR 60-89 3 Moderate decrease in GFR 30-59 4 Severe decrease in GFR 15-29 5 Kidney failure <15 (or dialysis) 44 Desirable <150 Borderline high 150-199 High 200-499 Very High >500 45 Desirable <200 Borderline high 200-239 High >239 46 Low <40 Desirable: 40-60 High: >60 47 Desirable: <100 mg/dL Near Optimal: 100-129 mg/dL Borderline High: 130-159 mg/dL High: 160-189 mg/dL Very High: >189 mg/dL 48 Therapeutic target for the treatment of diabetes Mellitus patients is <7% HBA1C, and in selective patients <6.0%.Please refer to [place] [employer] Diabetic care guidelines for further information. 49 Result in log IU/mL is 7.08. ADDITIONAL INFORMATION The quantification range of this assay is 15 to 100,000,000 IU/mL (1.18 log to 8.00 log IU/mL). Testing was performed by the [employer] AmpliPrep/[employer] TaqMan HCV Test, version 2.0 ([employer] Test Performed by: [address] [address] Manager In Training: Kwame Robles II, M.D., Ph.D. Procedures Date CPT Code Description Status Comment 09/16/2017 Mammogram Completed 2018: benign; 2017:benign nodule, repeat in 07/201707/19/2017 Diabetic Foot Exam Completed anchor tacker in [place] 02/22/2017 11588 Glucose Monitoring Completed Interpetation And Report 02/15/2017 05893 Glucose Monitoring From Completed Interstital Tissue Fluid Minimum 72 Hours 11/24/2016 Diabetic Retinal Eye Exam Completed 11/24/16: [facility], negative, recheck 12 months 12/02/15: Dr. Elaine Mayo ([facility]), negative, rehceck 12 months 05/19/2016 Colonoscopy Completed 2016:2 polyps, biopsies negative, hemorrhoids, repeat 10 years (had post procedure bleeding) Encounters Type Date Location Provider CPT E/M Dx Office Visit 02/01/2018 4:30p [place] [address] E10.65 M24.542 G56.02 I10 Office Visit 01/18/2018 3:30p [place] [address] E10.65 G56.02 B18.2 M54.30 F17.210 Z79.4 Z71.89 Office Visit 11/17/2017 4:00p [place] [address] E10.65 G56.02 M54.30 B18.2 F17.200 Office Visit 09/14/2017 11:05a [place] [address] E10.65 F17.210 M54.30 G56.02 Z12.31 Z96.41 Z79.891 Office Visit 05/19/2017 4:00p [place] [address] E10.65 M54.30 F17.210 Office Visit 03/17/2017 4:00p [place] [address] E10.65 Z23 L84 Z71.89 Office Visit 02/09/2017 4:15p [place] [address] E10.65 B35.3 M54.32 F17.210 E10.628 Office Visit 12/08/2016 4:15p [place] [address] E10.65 F17.210 J30.9 M65.841 Office Visit 10/07/2016 3:20p [place] [address] E10.10 F17.210 J30.9 J44.9 E10.65 Office Visit 07/30/2016 4:35p [place] [address] E10.69 M54.32 N63 F17.210 Z12.31 Office Visit 06/03/2016 4:00p [place] [address] E10.69 K91.840 Office Visit 04/08/2016 4:00p [place] [address] E10.69 M54.32 Z79.4 Office Visit 02/19/2016 4:00p [place] [address] E10.69 M54.30 I10 J30.9 J44.9 G47.00 L03.039 B18.2 F17.200 E10.628 Plan of Care Future Appointment(s):04/05/2018 3:30 pm - Francheska Nichole PA at Main [id number] - Francheska Nichole PAE10.65 Type 1 diabetes mellitus with hyperglycemiaComments:Addressed at 01/18 visit. A1C increased slightly from prior check. CGM last summer showed glucose is quite variable. Patient just started new insulin pump but it does not have CGM that links to it. Waiting for response from [facility] to see if they can set her up with a CGM to work with her new pump, which will likely get her much better glucose control. Pt to work on following diabetic diet (includinglow carbs) and following insulin sliding scale. F/U 2-3 months w A1C.Follow up:f/u 2-3 months DMM24.542 Contracture, left handComments:Pain and limited ROM left hand s/p carpal tunnel surgery x2. NCS done, discussed w patient--mild to moderate carpal tunnel syndrome ( residual nervie injury vs reinjury), limited finger ROM likely from capsular shortening and contractures (developed postoperatively), possible arthritis, possible CRPS. Dr. Ayala's note states pt was to be referred to [facility]. Pt states she hasn't heard anything yet, and wasn't sure if Dr. Ayala's office was going to be setting up referral or if she wanted us to do it. Will call for clarification on referral and status.G56.02 Carpal tunnel syndrome, left upper limbComments:See #2I10 Essential (primary) hypertensionComments:Well controlled, monitor.
== END 2018-02-06 15:25 | disposition short-term general hospital (02) ==
LOC: UCEAST 14:39
DX: R11.2 Nausea with vomiting, unspecified (principal); E11.9 Type 2 diabetes mellitus without complications; Z79.4 Long term (current) use of insulin; I10 Essential (primary) hypertension; F17.210 Nicotine dependence, cigarettes, uncomplicated
CPT/HCPCS: 93005; 96360; 99213; G0463

== ENCOUNTER 2018-02-06 15:37 | Emergency (ER) | payer BC ==
--- NOTE | 2018-02-06 15:54 | ED ---
HPI Diabetic - HPI Summary HPI Summary: This is shola Messer documenting for attending Jenaro Edward MD. This patient is a 52 year old F presenting to ED with a chief complaint of DM issue since this morning. She woke up with a sugar level of 700 and started to vomit. After vomiting her sugar went down to 158. She had a lot of ETOH at a luau last night and had a blunt. She doesnt remember when her last drink was but states her roommate says she drank all night. The patient takes insulin through a pump. The patient rates the pain 0/10 in severity. Symptoms aggravated by nothing. Symptoms alleviated by nothing. Patient reports N/V. Patient denies abdominal pain, CP, and SOB. - History Of Current Complaint Chief Complaint: EDDiabeticProb Time Seen by Provider: 02/06/18 15:42 Hx Obtained From: Patient Hx Last Menstrual Period: hysterectomy Onset/Duration: Sudden Onset, Lasting Hours, Still Present Timing: Constant Severity Currently: None Aggravating: Nothing Alleviating: Nothing Associated Signs & Symptoms: Vomiting - Patient reports N/V. Patient denies abdominal pain, CP, and SOB. - Allergies/Home Medications Allergies/Adverse Reactions: Allergies Allergy/AdvReac Type Severity Reaction Status Date / Time BLACK PEPPER Allergy RASH, Uncoded 08/26/17 07:19 THROAT CLOSES ENVIRONMENTAL ALLERGIES Allergy Unknown Uncoded 08/26/17 07:19 Reaction Details PMH/Surg Hx/FS Hx/Imm Hx Endocrine/Hematology History: Reports: Hx Diabetes - Type 1, INSULIN PUMP Denies: Hx Thyroid Disease Cardiovascular History: Reports: Hx Hypertension - ON MEDICATION Denies: Other Cardiovascular Problems/Disorders Respiratory History: Reports: Hx Asthma - ON MEDICATION, Hx Chronic Obstructive Pulmonary Disease (COPD) Denies: Other Respiratory Problems/Disorders GI History: Reports: Hx Ulcer Denies: Other GI Disorders History: Denies: Other Problems/Disorders Musculoskeletal History: Reports: Hx Orthopedic Injury - carpal tunnel, Hx Tendonitis - LEFT HAND, Other Musculoskeletal History - SCIATICA INTERMITTENT- AFFECTS LEFT LEG Sensory History: Reports: Hx Contacts or Glasses - GLASSES Denies: Hx Hearing Aid Opthamlomology History: Reports: Hx Contacts or Glasses - GLASSES Neurological History: Reports: Other Neuro Impairments/Disorders - LEFT HAND NUMBNESS AND TINGLING, CARPAL TUNNEL SURG 07/29/17 - Cancer History Hx Chemotherapy: No Hx Radiation Therapy: No - Surgical History Surgery Procedure, Year, and Place: Skin graft RIGHT ANKLE 1975 [facility]. Hysterectomy 2007 [facility]. RIGHT SHOULDER SURGERY 2008 [facility]. Right Carpal tunnel, 2013. RIGHT SHOULDER SURGERY 2013 [facility]. LEFT CARPAL TUNNEL RELEASE- 07/29/17 [facility] Hx Anesthesia Reactions: No - Immunization History Date of Tetanus Vaccine: 2015 Date of Influenza Vaccine: 03/2017 Infectious Disease History: Yes Infectious Disease History: Reports: Hx Hepatitis - HEPATITIS C, Hx Tuberculosis - POS PPD, neg blood test Denies: Hx Clostridium Difficile, Hx Human Immunodeficiency Virus (HIV), Hx of Known/Suspected MRSA, Hx Shingles, Hx Known/Suspected VRE, Hx Known/ Suspected VRSA, History Other Infectious Disease, Traveled Outside the [place] in Last 30 Days - Family History Known Family History: Positive: Cardiac Disease, Hypertension, Diabetes - Social History Alcohol Use: Weekly Alcohol Amount: 18 beers/week Hx Substance Use: No Substance Use Type: Reports: None Hx Tobacco Use: Yes Smoking Status (MU): Heavy Every Day Tobacco Smoker Type: Cigarettes Amount Used/How Often: 1-3 CIGARETTES PER DAY X OFF AND ON 20 YEARS Length of Time of Smoking/Using Tobacco: 20 - 30 years Have You Smoked in the Last Year: Yes Review of Systems Negative: Chest Pain Negative: Shortness Of Breath Positive: Vomiting, Nausea. Negative: Abdominal Pain All Other Systems Reviewed And Are Negative: Yes Physical Exam - Summary Physical Exam Summary: GENERAL: Patient is a well-developed FEMALE who is lying comfortable in the stretcher. Patient is not in any acute respiratory distress. The patient is obviously intoxicated but alert and oriented. HEAD AND FACE: Normocephalic EYES: PERRLA, EOMI x 2. EARS: Hearing grossly intact. MOUTH: Oropharynx within normal limits. NECK: Supple, trachea is midline, no adenopathy, no JVD, no carotid bruit. CHEST: Symmetric, no tenderness at palpation LUNGS: Clear to auscultation bilaterally. No wheezing or crackles. CVS: Regular rate and rhythm, S1 and S2 present, no murmurs or gallops appreciated. ABDOMEN: Soft, non-tender. Bowel sounds are normal. No abdominal abnormal pulsations. EXTREMITIES: Full ROM in all major joints, no edema, no cyanosis or clubbing. NEURO: Alert and oriented x 3. No acute neurological deficits. Speech is normal and follows commands. SKIN: Dry and warm Triage Information Reviewed: Yes Vital Signs On Initial Exam: Initial Vitals Temp Pulse Resp BP Pulse Ox 98.8 F 86 20 131/76 97 02/06/18 15:41 02/06/18 15:41 02/06/18 15:41 02/06/18 15:41 02/06/18 15:41 Vital Signs Reviewed: Yes Diagnostics - Vital Signs Vital Signs Temp Pulse Resp BP Pulse Ox 02/06/18 15:41 98.8 F 86 20 131/76 97 - Laboratory Result Diagrams: 02/06/18 16:50 02/06/18 16:50 Lab Statement: Any lab studies that have been ordered have been reviewed, and results considered in the medical decision making process. Re-Evaluation - Re-Evaluation First Eval Re-Evaluation Time: 17:42 Comment: The patient feels better and wants to go home. We will continue to monitor due to her low glucose. Diabetic Course/Dx - Course Assessment/Plan: This patient is a 52 year old F presenting to ED with a chief complaint of DM issue since this morning. Patient was out drinking and checked her glucose. She saw it was 700 and gave herself several extra dosages of insulin. She vomited and was dehydrated which was indication that she needed to go to the ED. Her chem showed glucose of 58. Therefore, we gave her juice and D50 and saw subsequent improvement. We gave her a meal and before D/C her glucose was up to 304. Not consistent with DKA. Blood alcohol level is 0. She is requesting D/C at this time. She is hemodynamically stable and is safe for discharge. Strict return precautions given and she will otherwise follow up with her PCP. Patient will monitor her glucose closely. - Diagnoses Differential Dx: Hypoglycemia, Other - diabetic problems Provider Diagnoses: Diabetes education, encounter for Discharge - Sign-Out/Discharge Documenting (check all that apply): Patient Departure - Discharge Plan Condition: Stable Disposition: HOME Patient Education Materials: Hypoglycemia in a Person with Diabetes (ED), Diabetic Hyperglycemia (ED) Referrals: Francheska Gallardo [Primary Care Provider] - (Follow up with your primary care physician in 1-3 days.) Additional Instructions: RETURN TO THE EMERGENCY DEPARTMENT FOR CHANGING OR WORSENING SYMPTOMS.
[2018-02-06] MEDS: NS 0.9% 1000 ML* 2,000 ML IV ONE ×2 (16:29→16:30)
[2018-02-06 17:01] LABS: ABS Basophils 0.1 10^3/ul (0-0.2); ABS Eosinophils 0 10^3/ul (0-0.6); ABS Lymphocytes 1.7 10^3/ul (1.0-4.8); ABS Monocytes 0.5 10^3/ul (0-0.8); ABS Nucleated RBC 0 10^3/ul; Eosinophil % 0.7 % (0-6); Hematocrit 39 % (35-47); Hemoglobin 13.4 g/dl (12.0-16.0); Lymphocyte % 23.5 % (25-47); Mean Corpuscular HGB Conc 34 g/dl (31-36); Mean Corpuscular Hemoglobin 32 pg (27-31); Mean Corpuscular Volume 94 fL (80-97); Mean Platelet Volume 8.5 um3 (7.4-10.4); Nucleated Red Blood Cells % 0.1; Platelet Count 161 10^3/ul (150-450); Red Blood Count 4.15 10^6/ul (4.00-5.40); Red Cell Distribution Width 14 % (10.5-15); White Blood Count 7.3 10^3/ul (3.5-10.8)
[2018-02-06 17:19] LABS: EGFR Non-African American 115.2 (>60)
[2018-02-06] MEDS ORDERED: Dextrose 50% Syringe 50 ML* 25 GM/50 ML SYRINGE ONE (17:24)
[2018-02-06] MEDS ORDERED: Dextrose 50% Syringe 50 ML* 25 GM/50 ML SYRINGE IV PUSH ONE (17:25)
[2018-02-06] MEDS ORDERED: Dextrose 50% VIAL 50 ml IV ONE (17:29)
[2018-02-06 18:57] VITALS: BP 125/65
== END 2018-02-06 18:56 | disposition home or self-care (01) ==
LOC: ED 15:37
DX: E11.9 Type 2 diabetes mellitus without complications (principal); E86.0 Dehydration; R11.10 Vomiting, unspecified; Z71.89 Other specified counseling; F17.210 Nicotine dependence, cigarettes, uncomplicated; I10 Essential (primary) hypertension; J45.909 Unspecified asthma, uncomplicated; Z79.4 Long term (current) use of insulin; Z96.41 Presence of insulin pump (external) (internal); Z79.899 Other long term (current) drug therapy
CPT/HCPCS: 36415; 80053; 80320; 82803; 85025; 96361; 96374; 99283; G0480

== ENCOUNTER 2018-07-07 02:36 | Observation (INO) | payer BC ==
--- NOTE | 2018-07-07 02:48 | ED ---
HPI Diabetic - HPI Summary HPI Summary: A 53 y/o F with DM presents to ED with c/o elevated glucose (700) first noticed a few hours [employer] OPER[employer]. Pt is on an insulin pump. Two days ago, her dosage was adjusted. The patient went in to work a double shift yesterday and felt unwell. She began to vomit at work. She didn't test her glucose yesterday because she is running out of her glucose strips and is trying to conserve them. Associated sx: urinary frequency. She denies CP, abd pain. Patient appears drowsy at bedside. - History Of Current Complaint Chief Complaint: EDDiabeticProb Hx Obtained From: Patient Hx Last Menstrual Period: hysterectomy Onset/Duration: Lasting Hours, Still Present Timing: Constant Severity Initially: Moderate Severity Currently: Severe Character: Lethargic Aggravating: Medication Change Associated Signs & Symptoms: Vomiting Related History: Insulin Pump - Allergies/Home Medications Allergies/Adverse Reactions: Allergies Allergy/AdvReac Type Severity Reaction Status Date / Time BLACK PEPPER Allergy RASH, Uncoded 08/26/17 07:19 THROAT CLOSES ENVIRONMENTAL ALLERGIES Allergy Unknown Uncoded 08/26/17 07:19 Reaction Details PMH/Surg Hx/FS Hx/Imm Hx Previously Healthy: No Endocrine/Hematology History: Reports: Hx Diabetes - Type 1, INSULIN PUMP Denies: Hx Thyroid Disease Cardiovascular History: Reports: Hx Hypertension - ON MEDICATION Denies: Other Cardiovascular Problems/Disorders Respiratory History: Reports: Hx Asthma - ON MEDICATION, Hx Chronic Obstructive Pulmonary Disease (COPD) Denies: Other Respiratory Problems/Disorders GI History: Reports: Hx Ulcer Denies: Other GI Disorders History: Denies: Other Problems/Disorders Musculoskeletal History: Reports: Hx Orthopedic Injury - carpal tunnel, Hx Tendonitis - LEFT HAND, Other Musculoskeletal History - SCIATICA INTERMITTENT- AFFECTS LEFT LEG Sensory History: Reports: Hx Contacts or Glasses - GLASSES Denies: Hx Hearing Aid Opthamlomology History: Reports: Hx Contacts or Glasses - GLASSES Neurological History: Reports: Other Neuro Impairments/Disorders - LEFT HAND NUMBNESS AND TINGLING, CARPAL TUNNEL SURG 07/29/17 - Cancer History Hx Chemotherapy: No Hx Radiation Therapy: No - Surgical History Surgery Procedure, Year, and Place: Skin graft RIGHT ANKLE 1975 [facility]. Hysterectomy 2007 [facility]. RIGHT SHOULDER SURGERY 2008 [facility]. Right Carpal tunnel, 2013. RIGHT SHOULDER SURGERY 2014 [facility]. LEFT CARPAL TUNNEL RE[place]- 07/29/[place] [facility] [place] Anesthesia Reactions: No - Immunization History Date of Tetanus Vaccine: 2015 Date of Influenza Vaccine: 03/2017 Infectious Disease History: No Infectious Disease History: Reports: Hx Hepatitis - HEPATITIS C, Hx Tuberculosis - POS PPD, neg blood test Denies: Hx Clostridium Difficile, Hx Human Immunodeficiency Virus (HIV), Hx of Known/Suspected MRSA, Hx Shingles, Hx Known/Suspected VRE, Hx Known/ Suspected VRSA, History Other Infectious Disease, Traveled Outside the [place] in Last 30 Days - Family History Known Family History: Positive: Cardiac Disease, Hypertension, Diabetes - Social History Occupation: Employed Full-time Lives: With Family Alcohol Use: Weekly Alcohol Amount: 18 beers/week Hx Substance Use: No Substance Use Type: Reports: None Substance Use Comment - Amount & Last Used: "i think i smoked a blunt last night " Hx Tobacco Use: Yes Smoking Status (MU): Heavy Every Day Tobacco Smoker Type: Cigarettes Amount Used/How Often: 1-3 CIGARETTES PER DAY X OFF AND ON 20 YEARS Length of Time of Smoking/Using Tobacco: 20 - 30 years Have You Smoked in the Last Year: Yes Review of Systems Negative: Chest Pain Positive: Vomiting. Negative: Abdominal Pain Positive: frequency All Other Systems Reviewed And Are Negative: Yes Physical Exam - Summary Physical Exam Summary: Appearance: Well appearing, mild distress Skin: warm, dry, reflects adequate perfusion Head/face: normal Eyes: EOMI, NI ENT: mucous membranes moist Neck: supple, non-tender Respiratory: CTA, breath sounds present Cardiovascular: mildly tachy, pulses symmetrical Abdomen: non-tender, soft Bowel Sounds: present Musculoskeletal: normal, strength/ROM intact Neuro: normal, sensory motor intact, A&Ox3, mildly slurred speech, drowsy Triage Information Reviewed: Yes Vital Signs On Initial Exam: Initial Vitals Temp Pulse Resp BP Pulse Ox 97.6 F 98 16 121/83 96 07/07/18 02:42 07/07/18 02:42 07/07/18 02:42 07/07/18 02:42 07/07/18 02:42 Vital Signs Reviewed: Yes Diagnostics - Vital Signs Vital Signs Temp Pulse Resp BP Pulse Ox 07/07/18 02:42 97.6 F 98 16 121/83 96 - Laboratory Result Diagrams: 07/07/18 02:56 07/07/18 02:56 Lab Statement: Any lab studies that have been ordered have been reviewed, and results considered in the medical decision making process. - EKG 0308 Cardiac Rate: NL - 85 bpm EKG Rhythm: Sinus Rhythm ST Segment: Normal Summary of EKG Findings: NSR: 85bpm; Normal [place]; Normal Interval; Normal ST Re-Evaluation - Re-Evaluation 1 Re-Evaluation Time: 03:44 Change: Improved Diabetic Course/Dx - Course Course Of Treatment: Nurses note reviewed. Patient presents with diabetic hyperglycemia and DKA related to recent dose adjustment of insulin pump. She has also been noncompliant with checking her blood sugars. There has been no new cardiac or infectious event that incited this. She was given insulin bolus , 2 L IV fluids and placed on insulin drip for sugars approaching 700. Her nausea was improving with IV fluids. Potassium is 4.5 currently. Blood sugars following with insulin drip. It will be titrated down so as to not drop her too precipitously. Blood sugars will be monitored every half hour to one hour. Repeat BMP at 2 hours. Admit to ICU through hospitalist service. - Diagnoses Differential Dx: Acute NE, Diabetic Ketoacidosis, Hyperglycemia, Hyperosmolar State, Pneumonia, Pyelonephritis, Sepsis Provider Diagnoses: DKA (diabetic ketoacidoses) - Physician Notifications Discussed Care Of Patient With: Megan Erwin - hospitalist Time Discussed With Above Provider: 03:51 Instructed by Provider To: Admit As Inpatient - Critical Care Time Critical Care Time: 30-74 min - Critical care time is exclusive of separately billable procedures Discharge - Sign-Out/Discharge Documenting (check all that apply): Patient Departure - ADMIT - Discharge Plan Condition: Guarded Disposition: ADMITTED TO [facility] Referrals: Francheska Gallardo [Primary Care Provider] - - Billing Disposition and Condition Condition: GUARDED Disposition: Admitted to [facility] - Attestation Statements Document Initiated by Scribe: Yes Documenting Scribe: Sung Trinidad Provider For Whom Scribe is Documenting (Include Credential): Dr. Laureano Fernandes MD Scribe Attestation: Sung Spear, scribed for Dr. Laureano Fernandes MD on 07/07/18 at 0446. Scribe Documentation Reviewed: Yes Provider Attestation: The documentation as recorded by the albinoibe, Sung Trinidad accurately reflects the service I personally performed and the decisions made by me, Dr. Laureano Fernandes MD Status of Scribe Document: Viewed
[2018-07-07] MEDS ORDERED: Insulin REGULAR(*) 1 UNITS UNIT IV ONE (02:49)
[2018-07-07] MEDS ORDERED: NS 0.9% 1000 ML* 1,000 ML IV ONE ×2 (02:49→03:41)
--- OUTSIDE RECORDS SUMMARY | 2018-07-07 03:13 | XMS REPORT | Continuity of Care Document ---
:1965 External Reference #:[id number] Author Name Luzmaria Christianson Care Team Providers Name Role Phone Francheska Nichole PA Primary Care Physician Unavailable Payers Type Date Identification Numbers Payment Provider Subscriber Effective: Policy Number: [id number] Trisha Washington 2012 Expires: 2013 PayID: [id number] [address] [address] [place] [address] Effective: 2013 Policy Number: [id number] Trisha Washington PayID: [id number] [address] [address] [place] [address] Expires: 2012 Policy Number: [id number] [facility] Cyn[facility] PayID: [id number] [address] [address] [place] [address] Advance Directives Description No Information Available Problems Date Description Provider Status Onset: 12/04/2016 Radial styloid tenosynovitis Linus Dickerson MD Active Onset: 12/04/2016 Localized, primary osteoarthritis of the Linus Dickerson MD Active hand Onset: 08/26/2017 Lesion of median nerve Linus Dickerson MD Active Family History Date Family Member(s) Problem(s) Comments General Unknown Father due to Lung Cancer () Mother Lupus Mother Hypertension Mother Heart Disease Siblings 4 3 living, 1 brother, 2 sisters, 1 brother from drowning . 1 sister, Lola has vein issues and HTN. Social History Type Date Description Comments Sex Unknown Marital Status Lives With Family Occupation seafood and service meat manager ETOH Use Denies alcohol use Tobacco Use Start: Unknown Patient is a current smoker, smokes every day Recreational Drug Use Denies Drug Use Tobacco Use Start: Unknown Light tobacco smoker (10 or fewer cigarettes/day) Smoking Status Reviewed: 06/21/18 Light tobacco smoker (10 or fewer cigarettes/day) Exercise Type/Frequency Exercises sporadically Allergies, Adverse Reactions, Alerts Description No Known Drug Allergies Medications Medication Date Status Form Strength Qnty SIG Indications Ordering Provider Hydrocodone-Aceta 08/25/ Active Tablets 5-325mg 30tab 1 or 2 tabs Linus minasif 2018 s by mouth Dickerson, every 6-8 MD hours as needed for pain Ibuprofen 03/15/ Active Tablets 600mg 120ta Take One Michelle 2012 bs Tablet By Wilson-Yo Mouth Every reina, M.DSoila 6 Hours as Needed For Pain Take Three Times A Day For 7 Days Then as Needed Vitamin D3 Super / Active Capsules 2000Unit 1 by mouth Unknown Strength 0000 every day Montelukast / Active Tablets 10mg 1 by mouth Unknown Sodium 0000 every day Levocetirizine / Active Tablets 5mg 1 by mouth Unknown Dihydrochloride 0000 every day Telmisartan / Active Tablets 40mg take 1 Unknown 0000 tablet by mouth nightly Mavyret / Active Tablets 100-40mg 3 tabs by Unknown 0000 mouth once daily Novolog / Active Solution 100Unit/M in pump 1 Unknown 0000 L unt for every 15 carbs. 1.5 units per hour. Cephalexin 08/26/ Hx Capsules 500mg 20cap 1 cap by Linus 2018 - s mouth four Dickerson, 09/01/ times a day MD 2017 Tramadol 07/21/ Hx Tablets 37.5-325m 30tab 1-2 tab by Linus Hydrochloride/Leonid 2018 - g s mouth every Dickerson, taminophen 08/25/ 4-6 hours MD 2018 as needed [place] 02/06/ Hx Tablets 5-325mg 60tab 1-2 po bid Wade 2012 - prn pain Hany, 07/16/ M.DSoila 2017 Keflex 02/06/ Hx Capsules 500mg 40cap 1 po qid in Michelle 2012 - non Wilson-Yo 07/16/ childproof Zachary huang 2016 bottle Valsartan / Hx Tablets 80mg 1 by mouth Unknown 0000 - every day 2017 Medications Administered in Office Medication Date Status Form Strength Qnty SIG Indications Ordering Provider Celestone 3 mg Administered Injection Linus and 3mg 017 MD Tuan Celestone 3 mg Administered Injection Linus and 3mg 017 MD Tuan Celestone 3 mg Administered Injection Wade and 3mg 013 Zachary Leach Celestone 3 mg Administered Injection Michelle and 3mg 013 Alex clark M.D. Immunizations Description No Information Available Vital Signs Date Vital Result Comment 06/21/2018 3:27pm Height 62 inches 5'2" Weight 153.00 lb w/ shoes Heart Rate 71 /min BP Systolic Sitting 161 mmHg BP Diastolic Sitting 85 mmHg BMI (Body Mass Index) 28.0 kg/m2 09/21/2017 2:32pm Height 62 inches 5'2" Weight 143.00 lb Heart Rate 94 /min Respiratory Rate 18 /min Body Temperature 98.8 F Pain Level 0 BMI (Body Mass Index) 26.2 kg/m2 09/03/2017 8:06am Height 62 inches 5'2" Weight 143.00 lb per pt Heart Rate 82 /min reg Respiratory Rate 16 /min Pain Level 0 BMI (Body Mass Index) 26.2 kg/m2 08/25/2017 8:36am Height 62 inches 5'2" Weight 143.00 lb Heart Rate 81 /min Respiratory Rate 16 /min Body Temperature 97.8 F Pain Level 8 BMI (Body Mass Index) 26.2 kg/m2 08/10/2017 1:28pm Height 62 inches 5'2" Weight 143.00 lb Heart Rate 68 /min Respiratory Rate 14 /min Body Temperature 98.0 F Pain Level 0 BMI (Body Mass Index) 26.2 kg/m2 07/16/2017 4:11pm Heart Rate 78 /min BP Systolic Sitting 148 mmHg BP Diastolic Sitting 78 mmHg Body Temperature 97.5 F Pain Level 5 06/04/2017 3:55pm Height 62 inches 5'2" Weight 143.00 lb BP Systolic 124 mmHg BP Diastolic 70 mmHg Respiratory Rate 20 /min Pain Level 0 BMI (Body Mass Index) 26.2 kg/m2 12/04/2016 3:56pm Height 62 inches 5'2" Weight 143.00 lb BP Systolic Sitting 142 mmHg BP Diastolic Sitting 82 mmHg Respiratory Rate 14 /min Body Temperature 96.7 F Pain Level 5 BMI (Body Mass Index) 26.2 kg/m2 11/21/2013 8:21am Height 62 inches 5'2" Weight 136.00 lb Heart Rate 84 /min BP Systolic 139 mmHg BP Diastolic 95 mmHg BMI (Body Mass Index) 24.9 kg/m2 10/02/2013 8:06am Height 62 inches 5'2" Weight 135.00 lb BP Systolic 127 mmHg BP Diastolic 77 mmHg BMI (Body Mass Index) 24.7 kg/m2 09/05/2013 9:36am Heart Rate 91 /min BP Systolic 141 mmHg BP Diastolic 91 mmHg 07/06/2013 8:24am Height 62 inches 5'2" Weight 146.00 lb Heart Rate 71 /min BP Systolic 142 mmHg BP Diastolic 75 mmHg BMI (Body Mass Index) 26.7 kg/m2 Results Test Date Facility Test Result H/L Range Note Laboratory test finding 06/21/2018 [facility] Glucose Random 313 Ketones 0.2 Hemoglobin A1c 8.3 High 5-7 Laboratory test 08/26/2017 [facility] Point of Care 72 mg/dL N 70-[address] [place] [address] [phone] Laboratory test 08/26/2017 [facility] Surgical SEE RESULT 2 , [address] [place] [address] [phone] Laboratory test 08/26/2017 [facility] Point of Care 132 mg/dL High 70-100 [address] [place] [address] [phone] Laboratory test 08/26/2017 [facility] Point of Care 57 mg/dL Low 70-100 [address] [place] [address] [phone] Laboratory test 07/29/2017 [facility] Point of Care 71 mg/dL N 70-100 [address] [place] [address] [phone] 1 Training Personnel Supervisor: [id number] SEE RESULT BELOW Name: CYNTHIA WASHINGTON : [address]: Linus Dickerson MD Acct: [id number] Unit: [id number] AGE: 52 Location: [facility] Re08/26/17 SEX: F Status: DEP SDC SPEC: [id number] SONIA: 08/26/17-[address]: Linus Dickerson MD REQ: [id number] RECD: 08/26/17-1007 STATUS: SOUT _ ORDERED: LEVEL 3 COMMENTS: [id number] FINAL DIAGNOSIS Synovial tissue, left wrist, excision: -- Chronic tenosynovitis. PRE-OPERATIVE DIAGNOSIS Left carpal tunnel syndrome. GROSS DESCRIPTION The specimen is received in formalin labeled, Left Flexor Tenosynovitis, and consists of a 3.5 x 3.1 x 0.5 cm aggregate of allen-pink irregular rubbery fibrous tissue fragments admixed with scant yellow fat. Flarer sections, one cassette. Signed (signature on file) Amanda Santiago MD 04/05 1152 END OF REPORT * ML=Testing performed at Main Lab DEPARTMENT OF PATHOLOGY, [address] [place] [address] Van Dominguez M.D. Director [facility] # [id number] 4 Training Personnel Supervisor: [id number] Training Personnel Supervisor: [id number] 6 Training Personnel Supervisor: [id number] Procedures Date Code Description Status 08/26/2017 40422 Radical Excision Arm/Wrist Flexors Completed 08/26/2017 99645 Radical Excision Arm/Wrist Flexors Completed 07/29/2017 97753 Carpal Tunnel Release Completed 07/29/2017 39798 Carpal Tunnel Release Completed 12/04/2016 31102 Inject/Drain Joint/Bursa Small W/O US Completed 12/04/2016 18376 Inject Tendon Sheath Or Ligament Aponeurosis Eg Plantar Completed Fascia 05/29/2016 46882 EKG, Interpretation Only Completed 10/02/2013 20782 Rad Exam; Fingers Completed 09/04/2013 93343 Closed TX Distal Extensor Tendon Insertion (Mallet Finger) Completed 09/04/2013 87585 FX Distal Finger/Thumb Care Completed 09/04/2013 42909 Rad Exam; Hand Limited Completed 07/14/2013 89468 Arthroscopy Shoulder W/Lysis & Resection Of Adhesions Completed 07/14/2013 64074 Arthroscopy Shoulder W/Lysis & Resection Of Adhesions Completed 05/23/2013 58480 Rad Shoulder Comp, Min. 2 Views Completed 04/04/2013 65129 Inject/Drain Joint/Bursa Intermediate W/O US Completed 04/04/2013 36988 Inject/Drain Joint/Bursa Intermediate W/O US Completed 02/02/2013 61415 Carpal Tunnel Release Completed 02/02/2013 88533 Neuroplasty &/Or Transposition; Ulnar Nerve AT Elbow Completed 02/02/2013 76191 Neuroplasty &/Or Transposition; Ulnar Nerve AT Elbow Completed 03/15/2009 12700 EKG, Interpretation Only Completed Encounters Type Date Location Provider Dx Diagnosis Office Visit 08/25/2017 [facility]opedic Linus Dickerson G56.02 Carpal tunnel 8:15a [facility] syndrome, left upper limb Office Visit 06/04/2017 Orthopedic Linus Dickerson G56.02 Carpal tunnel 3:15p [facility] syndrome, left upper limb Office Visit 12/04/2016 [facility]opedic Linus Dickerson M65.4 Radial styloid 3:30p [facility] tenosynovitis [de Quervain] M18.11 Unil primary osteoarth of first carpometacarp joint, r hand Office Visit 09/01/2016 [facility] Olga Hohn, E10.10 Type 1 diabetes 1:21p meenu Mendieta M.D. mellitus with Hospitalists ketoacidosis without coma F10.10 Alcohol abuse, uncomplicated I10 Essential (primary) hypertension Office Visit 08/31/2016 [facility] E10.10 Type 1 diabetes 1:20p Assmeenu mcqueen MD mellitus with Hospitalists ketoacidosis without coma F10.10 Alcohol abuse, uncomplicated I10 Essential (primary) hypertension [facility] Type 1 diabetes 1:20p Assoc,meenu Loaiza MD mellitus with Hospitalists ketoacidosis without coma I10 Essential (primary) hypertension F10.10 Alcohol abuse, uncomplicated Office Visit 08/29/2016 [facility] E10.10 Type 1 diabetes 1:19p meenu Mendieta II, M.D. mellitus with Hospitalists ketoacidosis without coma I10 Essential (primary) hypertension F10.10 Alcohol abuse, uncomplicated Z72.0 Tobacco use Office Visit 08/14/2016 8:34a [facility] Olga Fajardo, B18.2 Chronic viral Assmeenu mcqueen M.D. hepatitis C Hospitalists F10.10 Alcohol abuse, uncomplicated E10.10 Type 1 diabetes mellitus with ketoacidosis without coma I10 Essential (primary) hypertension Office Visit 08/13/2016 8:32a [facility] Olga Fajardo, B18.2 Chronic viral Assmeenu mcqueen M.D. hepatitis C Hospitalists E10.10 Type 1 diabetes mellitus with ketoacidosis without coma F10.10 Alcohol abuse, uncomplicated I10 Essential (primary) hypertension Office Visit 08/12/2016 [facility] E10.10 Type 1 diabetes 8:27a Assmeenu mcqueen II, M.D. mellitus with Hospitalists ketoacidosis without coma B18.2 Chronic viral hepatitis C F10.10 Alcohol abuse, uncomplicated I10 Essential (primary) hypertension [facility] 3:42p meenu Mendieta M.D. hemorrhage, Hospitalists unspecified I10 Essential (primary) hypertension E10.9 Type 1 diabetes mellitus without complications Office Visit 05/29/2016 [facility] Spenser K92.2 Gastrointestinal 3:42p Assoc,meenu Glass NGege hemorrhage, Hospitalists unspecified I10 Essential (primary) hypertension E10.9 Type 1 diabetes mellitus without complications Office Visit 02/03/2015 [facility] Linus 250.10 Diabetes W/ 3:49p Assoc,meenu Mackey M.D. Ketoacidosis Type Hospitalists II Or Unspec Controlled 250.03 Diabetes Mellitus W/O Compl Type I Juvenile Uncontrolled Office Visit 02/02/2015 [facility] Adrien Cannon 250.10 Diabetes W/ 3:48p Assoc,meenu NAVARRETE M.D. Ketoacidosis Type Hospitalists II Or Unspec Controlled 250.03 Diabetes Mellitus W/O Compl Type I Juvenile Uncontrolled Office Visit 05/23/2013 9:15a Orthopedic Wade Leach, 726.0 Ad[facility] Capsulitis C.M.ASoila Shoulder Office Visit 05/23/2013 9:00a Orthopedic Michelle 354.0 Carpal Tunnel [facility] Medina.MViola Sharma 354.2 Lesion Ulnar Nerve Office Visit 01/03/2013 3:00p Orthopedic Michelle 354.0 Carpal Tunnel [facility] Medina Syndrome C.M.A. Office Visit 11/22/2012 3:15p Orthopedic Luz Rivera 354.0 Carpal Tunnel Services [facility] RPA-C Syndrome C.M.A. Plan of Treatment Future Appointment(s):07/05/2018 3:40 pm - Zen Vo MD at [facility]06/21/2018 - Zen Vo MDE10.10 Type 1 diabetes mellitus with ketoacidosis without comaFollow up:2 weeks
--- OUTSIDE RECORDS SUMMARY | 2018-07-07 03:13 | XMS REPORT | Continuity of Care Document ---
:1965 External Reference #:[id number] Author Name Covert, Alba Care Team Providers Name Role Phone Francheska Nichole PA Primary Care Physician Unavailable Payers Type Date Identification Numbers Payment Provider Subscriber Effective: Policy Number: [id number] Trisha Washington 2012 Expires: 2013 PayID: [id number] [address] [address] [place] [address] Effective: 2013 Policy Number: [id number] Trisha Washington PayID: [id number] [address] [address] [place] [address] Expires: 2012 Policy Number: [id number] [facility] Cynthia Washington PayID: [id number] [address] [address] [place] [address] Advance Directives Description No Information Available Problems [...] Unknown Marital Status Lives With Family Occupation fast food fry cook ETOH Use Denies alcohol use Tobacco Use [...] Form Strength Qnty SIG Indications Ordering Provider Freestyle Constance 07/05/ Active Device 1unit use at Zaldivar 2018 s least 4 MD Tavo Day/Dillingham/Flash times daily Monitoring System with sensor Freestyle Constance 07/05/ Active Misc 2unit place one Zaldivar2017 s sensor MD Tavo Day/Sensor/Flash every 14 Monitoring System days Hydrocodone-Aceta 08/25/ Active Tablets 5-325mg 30tab 1 or 2 tabs Linus nguyen 2017 s by mouth Dickerson, every 6-8 MD hours as needed for pain Ibuprofen 03/15/ Active Tablets 600mg 120ta Take One Michelle 2012 bs Tablet By Wilson-Jose Mouth Every , M.D. 6 Hours as Needed For Pain Take [...] Capsules 500mg 20cap 1 cap by Linus 2017 - s mouth four Dcikerson, 09/01/ times a day 2017 Tramadol 07/21/ Hx Tablets 37.5-325m 30tab 1-2 tab by Linus Hydrochloride/Leonid 2017 - g s mouth every Dickerson, taminophen 08/25/ 4-6 hours 2017 as needed Talmage 02/06/ Hx Tablets 5-325mg 60tab 1-2 po bid Wade 2012 - prn pain Hany 07/16/ M.DSoila 2016 Keflex 02/06/ Hx Capsules 500mg 40cap 1 po qid in Michelle 2013 - s non Patrick 07/16/ childproof Zachary huang 2017 bottle Valsartan / Hx Tablets 80mg 1 [...] Available Vital Signs Date Vital Result Comment 07/05/2018 3:47pm Height 62 inches 5'2" Weight 155.00 lb w/shoes Heart Rate 69 /min BP Systolic Sitting 155 mmHg BP Diastolic Sitting 84 mmHg BMI (Body Mass Index) 28.3 kg/m2 06/21/2018 3:27pm Height 62 inches 5'2" Weight [...] H/L Range Note Laboratory test finding 06/21/2018 [facility] In House Glucose Random 313 Ketones 0.2 Hemoglobin A1c 8.3 High 5-7 Laboratory test 08/26/2017 [facility] Point of Care 72 mg/dL N 70-100 [address] [place] [address] [phone] Laboratory test 08/26/2017 [facility] Surgical SEE RESULT 2 , [address] [place] [address] [phone] Laboratory test 08/26/2017 [facility] Point of Care 132 mg/dL High 70-100 [address] [place] [address] [phone] Laboratory test 08/26/2017 [facility] Point of Care 57 mg/dL Low 70-100 [address] [place] [address] [phone] Laboratory test 07/29/2017 [facility] Point of Care 71 mg/dL N 70-100 [address] [place] [address] [phone] 1 Distributor Of Directories: [id number] 3 SEE RESULT BELOW Name: WASHINGTON,CYNTHIA M : [address]: Linus Dickerson MD Acct: [id number] Unit: [id number] AGE: 52 Location: [facility] [place] Re08/26/17 SEX: F Status: DEP SDC SPEC: [id number] SONIA: 08/26/[address]: Lnius Dickerson MD REQ: [id number] RECD: 08/26/17 STATUS: SOUT _ ORDERED: LEVEL 3 COMMENTS: [id number] FINAL DIAGNOSIS Synovial tissue, left wrist, excision: -- Chronic tenosynovitis. PRE-OPERATIVE DIAGNOSIS Left carpal tunnel syndrome. GROSS DESCRIPTION The specimen is received in formalin labeled, Left Flexor Tenosynovitis, and consists of a 3.5 x 3.1 x 0.5 cm aggregate of allen-pink irregular rubbery fibrous tissue fragments admixed with scant yellow fat. Chief Juvenile Probation Officer sections, one cassette. Signed (signature on file) Amanda Santiago MD 04/05 1152 END OF REPORT * ML=Testing performed at Main Lab DEPARTMENT OF PATHOLOGY, [address] [place] [address] Van Dominguez M.D. Director [facility] # [id number] 4 Distributor Of Directories: [id number] Distributor Of Directories: [id number] Distributor Of Directories: [id number] Procedures Date Code Description Status 08/26/2017 58032 Radical Excision Arm/Wrist Flexors Completed 08/26/2017 57061 Radical Excision Arm/Wrist Flexors Completed 07/29/201792126 Carpal Tunnel Release Completed 07/29/201735997 Carpal Tunnel Release Completed 12/04/2016 55982 Inject/Drain Joint/Bursa Small W/O US Completed 12/04/2016 06443 Inject Tendon Sheath Or Ligament Aponeurosis Eg Plantar Completed Fascia 05/29/2016 47118 EKG, Interpretation Only Completed 10/02/2013 81033 Rad Exam; Fingers Completed 09/04/2013 86021 Closed TX Distal Extensor Tendon Insertion (Mallet Finger) Completed 09/04/2013 70349 FX Distal Finger/Thumb Care Completed 09/04/2013 14350 Rad Exam; Hand Limited Completed 07/14/2013 55313 Arthroscopy Shoulder W/Lysis & Resection Of Adhesions Completed 07/14/2013 90447 Arthroscopy Shoulder W/Lysis & Resection Of Adhesions Completed 05/23/2013 05451 Rad Shoulder Comp, Min. 2 Views Completed 04/04/2013 Inject/Drain Joint/Bursa Intermediate W/O US Completed 04/04/2013 Inject/Drain Joint/Bursa Intermediate W/O US Completed 02/02/201373274 Carpal Tunnel Release Completed 02/02/2013 51472 Neuroplasty &/Or Transposition; Ulnar Nerve AT Elbow Completed 02/02/2013 05830 Neuroplasty &/Or Transposition; Ulnar Nerve AT Elbow Completed 03/15/2009 80798 EKG, Interpretation Only Completed Encounters Type Date Location Provider Dx Diagnosis Office Visit 08/25/2017 [facility] Linus Dickerson, G56.02 Carpal tunnel 8:15a [facility] syndrome, left upper limb Office Visit 06/04/2017 [facility] Linus Dickerson G56.02 Carpal tunnel 3:15p [facility] syndrome, left upper limb Office Visit 12/04/2016 [facility] Dickerson, M65.4 Radial styloid 3:30p [facility] tenosynovitis [de Quervain] M18.11 Unil primary osteoarth of first carpometacarp joint, r hand [facility] E10.10 Type 1 diabetes 1:21p Assoc,meenu Sharma mellitus with Hospitalists ketoacidosis without coma F10.10 Alcohol abuse, uncomplicated I10 Essential (primary) hypertension [facility] Type 1 diabetes 1:20p Assoc,meenu Loaiza MD mellitus with Hospitalists ketoacidosis without coma F10.10 Alcohol abuse, uncomplicated I10 Essential (primary) hypertension [facility]10 Type 1 diabetes 1:20p Assoc,meenu Loaiza MD mellitus with Hospitalists ketoacidosis without coma I10 Essential (primary) hypertension F10.10 Alcohol abuse, uncomplicated Office Visit 08/29/2016 [facility] E10.10 Type 1 diabetes 1:19p Assoc,meenu NAVARRETE M.D. mellitus with Hospitalists ketoacidosis without coma I10 Essential (primary) hypertension F10.10 Alcohol abuse, uncomplicated Z72.0 Tobacco use Office Visit 08/14/2016 8:34a [facility] Olga Fajardo, B18.2 Chronic viral Assocmeenu M.D. hepatitis C Hospitalists F10.10 Alcohol abuse, uncomplicated E10.10 Type 1 diabetes mellitus with ketoacidosis without coma I10 Essential (primary) hypertension Office Visit 08/13/2016 8:32a [facility] Olga Fajardo, B18.2 Chronic viral Assoc,meenu Sharma hepatitis C Hospitalists E10.10 Type 1 diabetes mellitus with ketoacidosis without coma F10.10 Alcohol abuse, uncomplicated I10 Essential (primary) hypertension Office Visit 08/12/2016 [facility] E10.10 Type 1 diabetes 8:27a meenu Mendieta II, M.D. mellitus with Hospitalists ketoacidosis without coma B18.2 Chronic viral hepatitis C F10.10 Alcohol abuse, uncomplicated I10 Essential (primary) hypertension Office Visit 05/30/2016 [facility] Olga K92.2 Gastrointestinal 3:42p Assoc,meenu Fajardo M.D. hemorrhage, Hospitalists unspecified I10 Essential (primary) hypertension E10.9 Type 1 diabetes mellitus without complications Office Visit 05/29/2016 [facility] Spenser K92.2 Gastrointestinal 3:42p Assoc,pc Quan, N.PoSila hemorrhage, Hospitalists unspecified I10 Essential (primary) hypertension E10.9 Type 1 diabetes mellitus without complications Office Visit 02/03/2015 [facility] Linus 250.10 Diabetes W/ 3:49p meenu Mendieta M.D. Ketoacidosis Type Hospitalists II Or Unspec Controlled 250.03 Diabetes Mellitus W/O Compl Type I Juvenile Uncontrolled Office Visit 02/02/2015 [facility] 250.10 Diabetes W/ 3:48p meenu Mendieta II, M.D. Ketoacidosis Type Hospitalists II Or Unspec Controlled 250.03 Diabetes Mellitus W/O Compl Type I Juvenile Uncontrolled Office Visit 05/23/2013 9:15a Orthopedic Wade Leach, 726.0 Adhesive [facility] Capsulitis C.M.ASoila Shoulder Office Visit 05/23/2013 9:00a Orthopedic Michelle 354.0 Carpal Tunnel [facility] C.MViola Sharma 354.2 Lesion Ulnar Nerve Office Visit 01/03/2013 3:00p Orthopedic Michelle 354.0 Carpal Tunnel [facility] Medina Syndrome C.M.A. Office Visit 11/22/2012 3:15p Orthopedic Luz Rivera 354.0 Carpal Tunnel Services [facility] RPA-C Syndrome C.M.A. Plan of Treatment 06/21/2018 - Zen Vo MDE10.10 Type 1 diabetes mellitus with ketoacidosis without comaFollow up:2 weeks
[2018-07-07 03:24] LABS: INR 0.91 (0.77-1.02)
[2018-07-07 03:24] LABS: ABS Basophils 0.1 10^3/ul (0-0.2); ABS Eosinophils 0.2 10^3/ul (0-0.6); ABS Lymphocytes 1.7 10^3/ul (1.0-4.8); ABS Monocytes 0.6 10^3/ul (0-0.8); ABS Neutrophils 6.6 10^3/ul (1.5-7.7); ABS Nucleated RBC 0 10^3/ul; Eosinophil % 1.8 %; Hematocrit 40 % (35-47); Hemoglobin 13.2 g/dl (12.0-16.0); Lymphocyte % 18.5 %; Mean Corpuscular HGB Conc 33 g/dl (31-36); Mean Corpuscular Hemoglobin 31 pg (27-31); Mean Corpuscular Volume 94 fL (80-97); Mean Platelet Volume 9.7 fL (7.4-10.4); Nucleated Red Blood Cells % 0; Platelet Count 167 10^3/ul (150-450); Red Blood Count 4.24 10^6/ul (4.00-5.40); Red Cell Distribution Width 14 % (10.5-15); White Blood Count 9.1 10^3/ul (3.5-10.8)
[2018-07-07 03:25] LABS: ALT 17 U/L (7-52); AST 17 U/L (13-39); Albumin 4.3 g/dL (3.2-5.2); Albumin/Globulin Ratio 1.2 (1-3); Alkaline Phosphatase 104 U/L (34-104); Anion Gap 16 mmol/L (2-11); BUN/Creatinine Ratio 34.2 (8-20); Blood Urea Nitrogen 26 mg/dL (6-24); C Reactive Protein < 1.00 mg/L (<8.01); CO2 Carbon Dioxide 19 mmol/L (22-32); Calcium 10.1 mg/dL (8.6-10.3); Chloride 95 mmol/L (101-111); Creatine Kinase 86 U/L (10-223); Globulin 3.5 g/dL (2-4); Potassium 4.5 mmol/L (3.5-5.0); Sodium 130 mmol/L (135-145); Total Protein 7.8 g/dL (6.4-8.9)
[2018-07-07] MEDS: Insulin IVPB 100 units/100 ml 100 UNITS/100 ML UNIT IVPB ONE ×2 (03:26→04:50)
[2018-07-07 03:28] LABS: Glucose 627 mg/dL (70-100)
[2018-07-07 03:59] LABS: Urine Appearance Clear; Urine Bacteria Absent (Absent); Urine Bilirubin Negative (Negative); Urine Blood 1+ (Negative); Urine Color Straw; Urine Glucose 3+(>=500 mg/dL) (Negative); Urine Ketones 1+ (Negative); Urine Nitrite Negative (Negative); Urine Protein Negative (Negative); Urine Red Blood Cell Trace(0-2/hpf) (Absent); Urine Specific Gravity 1.025 (1.010-1.030); Urine Urobilinogen Negative (Negative); Urine White Blood Cell Absent (Absent)
[2018-07-07 04:20] LABS: Magnesium 1.7 mg/dL (1.9-2.7)
[2018-07-07] MEDS ORDERED: Al Hydrox/Mg Hydrox/Simet LIQ* 30 ML UDC PO PRN (04:36)
[2018-07-07] MEDS ORDERED: Ondansetron INJ* 2 MG/ML VIAL IV PRN (04:36)
[2018-07-07] MEDS ORDERED: Acetaminophen TAB* 325 MG PO PRN (04:36)
[2018-07-07] MEDS ORDERED: NS 0.9% 1000 ML* 1,000 ML IV SCH ×2 (04:45→06:46)
[2018-07-07 05:29] LABS: BUN/Creatinine Ratio 36.7 (8-20); Calcium 9.1 mg/dL (8.6-10.3); EGFR Non-African American 103.8 (>60); Potassium 3.4 mmol/L (3.5-5.0)
[2018-07-07] MEDS ORDERED: Dextrose 50% Syringe 50 ML* 25 GM/50 ML SYRINGE IV PUSH PRN (05:37)
[2018-07-07] MEDS ORDERED: KCL 20 MEQ/100 ML IVPREMIX* 20 MEQ/100 ML BAG IV ONE (05:37)
--- NOTE | 2018-07-07 05:39 | PN ---
Progress Note - Progress Note Date of Service: 07/07/18 Note: Repeat BMP shows gap is closed. Will give Lantus 20 units now and then d/c insulin drip in 2 hours, start diet with lispro sliding scale and decrease IVFs to 100 cc/hr at that time. Recommend contact with Dr. Vo to determine insulin pump settings prior to discharge.
[2018-07-07] MEDS ORDERED: Insulin GLARGINE(*) 1 UNITS UNIT SUBCUT SCH (06:00)
[2018-07-07] MEDS: Heparin VIAL(*) 5000 UNITS/ML VIAL (FIVE THOUSAND) SUBCUT SCH ×2 (07:11→13:25)
[2018-07-07] MEDS ORDERED: Insulin LISPRO* 1 UNITS UNIT SUBCUT SCH (08:00)
--- NOTE | 2018-07-07 08:01 | HP ---
CC: MARKUS Olmstead; Dr. Vo.* HISTORY AND PHYSICAL: DATE OF ADMISSION: 07/07/18 TIME OF EVALUATION: 0430 PRIMARY CARE PROVIDER: MARKUS Olmstead CHIEF COMPLAINT: Nausea, vomiting, and elevated glucose. HISTORY OF PRESENT ILLNESS: This is a 53-year-old female with past medical history of type 1 diabetes who presented to the emergency room with an elevated glucose, nausea and vomiting. The patient states she was seen by Dr. Montejo 2 days ago and he adjusted her insulin and lowered it because she was having several incidences of low blood glucose. She forgot to get a refill on her strip. She only had 2 strips left, so she was not checking her sugars frequently to save strips when she needed it. 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 She is still having some nausea, abdominal symptoms have improved. She has increased thirst and urinary frequency. She does have a runny nose, chills, and a cough. No chest pain. No shortness of breath. She states she has been having to take more food in because she was started on hepatitis C medications, which requires her to eat more. Otherwise, review of systems is negative. She also denies any recent changes in her medications other than the infusion pump lowering and no changes in her weight. She states that she changed her pump set and did not notice any tubing malfunction while she was at work, it did not appear to be the issue. In the emergency room, the patient had labs, imaging. She was given 2 L of fluid, 7 units of insulin, started on insulin drip with IV fluids. PAST MEDICAL HISTORY: 1. Type 1 diabetes, on an insulin pump, followed Dr. Montejo. 2. Hypertension. 3. History of hepatitis C. 4. History of allergic rhinitis. MEDICATIONS: The patient states she takes medications for hepatitis C. She is on an insulin pump. It is unclear her remaining medication list, we will have to get a med rec. ALLERGIES: PEPPER and ENVIRONMENTAL ALLERGIES. FAMILY HISTORY: Mother is alive. Father of lung cancer at age 72. SOCIAL HISTORY: The patient lives at home with her . She does smoke less than a pack per day for several years. No alcohol use. No illicit drug use. Her healthcare proxy is her sister, Mary. 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 Code status full code. REVIEW OF SYSTEMS: A 14-point review of systems as mentioned in the HPI, otherwise negative. PHYSICAL EXAMINATION GENERAL: Mildly ill appearing, in no acute distress. VITAL SIGNS: Temp 97.6, pulse rate 83, respiratory rate 16, oxygen saturation 97 % on room air, blood pressure 144/72. HEENT: Head: Normocephalic. Pupils are equal and reactive, anicteric. Oropharynx: Mucous membranes dry. NECK: Supple. No lymphadenopathy. RESPIRATORY: Diminished breath sounds. No wheezing, rhonchi or rales. CARDIAC: Regular rate and rhythm. Systolic murmur most prominent at the left sternal base. ABDOMEN: Positive bowel sounds, soft, nondistended, nontender. EXTREMITIES: No clubbing, cyanosis or edema. +1 DPs. NEUROLOGIC: Alert and oriented x3. No gross focal neurologic deficits. LABORATORY DATA: White count 9.1, hemoglobin 13.2, hematocrit 40, platelets 167,000. INR is 0.91. ABG: pH 7.32, pCO2 of 34, pO2 is 94. Sodium 130, potassium 4.5, chloride 95, bicarb 19, anion gap of 16, BUN 26, creatinine 0.76 , glucose 627, mag of 1.7, troponin 0, CRP is less than 1. UA shows +1 ketones , +3 glucose. RADIOGRAPHIC DATA: Shows normal sinus rhythm. ASSESSMENT: This is a 53-year old female with past medical history of type 1 diabetes, on insulin pump who presented to the emergency room with an elevated glucose, nausea, and vomiting. 1. Mild diabetic ketoacidosis. Assessment: The etiology could be that her pump was lower. Contributing to this, she also appears to have upper respiratory tract infection symptoms with cough and congestion that may have triggered an increase in her sugars as well. No other obvious source of infection. Plan: We will admit her to the ICU with IV fluids and insulin drip , monitor glucose every hour and serial BMP's. I recommend touching base with Dr. Montejo to review her insulin pump and to put her back on a different infusion rate depending on how her levels have been over the past two days. We will also get a chest x-ray to rule out any underlying pneumonia, but with no white count, no elevated CRP, no fever it is unlikely pneumonia. It is probably most likely a viral upper respiratory tract infection. CHRONIC MEDICAL PROBLEMS: 1. We will need to obtain a med rec and order her medications accordingly. 2. FEN: We will keep her n.p.o. for now until her gap is closed with IV fluids. Replete her mag. 3. DVT prophylaxis: The patient scores moderate risk. Place her on heparin subcu t.i.d. 4. Code status: Full code. TIME SPENT: Greater than 30 minutes was spent doing the history and physical, more than half the time spent in direct patient contact and critical care. [id number]/CPS #: [id number] OSMIN
[2018-07-07] MEDS ORDERED: Potassium Chlor TAB* 20 MEQ TAB.ER PO ONE (08:42)
--- NOTE | 2018-07-07 08:56 | CONSULT ---
Consult Consult: [facility] Inpatient Consult Note Date of Consult: 07/07/18 Reason for Consult: type 1 diabetes on insulin pump Reason for Admission: hyperglycemia with impending DKA ASSESSMENT: PLAN: I recommend the following changes to her insulin pump. Basal Settings: 0000 1.2 0600 1.4 1200 1.6 1999 1.4 TOTAL 34 units/day SUBJECTIVE: History of Present Illness: Basal Settings: 0000 0.8 0600 1.0 1200 1.2 1999 1.0 TOTAL: 24.4 units/day Bolus Settings: I:C ratio: 0000 15 0600 14 1200 12 1999 14 ISF: 50 Target: 100-120 IOB: 4h Past Medical History: Medications Prior to Admission: Inpatient Medications: Allergies/Intolerances: Social History: Family History: Review of Systems: OBJECTIVE: Vital Signs: General: alert, pleasant, oriented, no distress ENT: neck supple, no thyromegaly, no bruit is heard Chest: CTAB, no wheezing or crackles CV: RRR, no murmur Abdomen: soft, non-tender Extremities: no edema, distal pulses intact Skin: warm, dry, no rash Neuro: grossly intact motor/sensory in extremities Psych: restricted affect, pleasant Labs:
[2018-07-07] MEDS ORDERED: Valsartan TAB* 40 MG PO ONE (13:00)
[2018-07-07] MEDS: Insulin LISPRO* 1 UNITS UNIT SUBCUT SCH ×3 (13:06→17:14)
[2018-07-07] MEDS ORDERED: Magnesium Sulfate 2 GM IV* 2 GM/50 ML BAG IVPB ONE (13:08)
[2018-07-07 17:13] VITALS: BP 141/74
[2018-07-07] MEDS ORDERED: Insulin IVPB 100 units/100 ml 100 UNITS/100 ML UNIT IVPB SCH (17:30)
--- NOTE | 2018-07-08 03:49 | DS ---
CC: MARKUS Olmstead; Dr. Vo * DISCHARGE SUMMARY: DATE OF ADMISSION: 07/07/18 DATE OF DISCHARGE: 07/07/18 PRIMARY CARE PROVIDER: MARKUS Olmstead. DISCHARGE DIAGNOSIS: Diabetic ketoacidosis SECONDARY DIAGNOSES: 1. Diabetes type 2, on insulin pump. 2. Hypertension. 3. History of hepatitis C. 4. History of allergic rhinitis. MEDICATIONS AT DISCHARGE: Include: 1. Insulin pump suggested by Dr. Vo with basal setting at midnight at 1.2 units, at 6 a.m. at 1.4 units, at noon at 1.6 units, and at 8 p.m. at 1.4 units. A total of 34 units a day that was set by Dr. Vo and the patient was placed on an insulin pump prior to her discharge. 2. The patient is also on vitamin D3 2000 units daily. 3. Levocetirizine 5 mg q.p.m. 4. Singulair 10 mg daily. 5. Telmisartan 40 mg at bedtime. LABORATORY DATA AND STUDIES PERFORMED DURING THE HOSPITAL STAY: Included on , sodium of 137, potassium 3.4, chloride 108, carbon dioxide 20, BUN 22, creatinine 0.6. CONSULTATIONS DURING THE HOSPITAL STAY: Included Dr. Zen Vo from Endocrinology. HOSPITALIZATION COURSE: Conchita Washington is a 53-year-old woman with a history of diabetes type 1, who stated that she had some low readings recently and she had her insulin pump adjusted to the lower settings by Dr. Vo just 3 days ago. She presented to the hospital with DKA. Her sugar was over 600. Her anion gap was 16. There did not appear to be any other precipitating factors. She was placed on an insulin drip and she did very well. By the time of discharge, she was placed back on her insulin pump and she tolerated it well with sugars in the 200s range. She is recommended to follow up with Dr. Vo in approximately 1 to 2 weeks and her primary care provider in approximately 4 to 7 days. Please note that this is a short summary of the patient's hospital stay. Please refer to further medical records for details. TIME SPENT: Approximately 35 minutes were spent on this patient's discharge. [id number]/[facility] #: [id number] [facility]
== END 2018-07-07 17:55 | disposition home or self-care (01) ==
LOC: ED 02:36 → INTOOBSV 04:36 → ICU 04:36
PROVIDERS: ADMIT Pediatrics; ATTEND Internal Medicine
DX: E11.10 Type 2 diabetes mellitus with ketoacidosis without coma (principal); Z96.41 Presence of insulin pump (external) (internal); I10 Essential (primary) hypertension; Z86.19 Personal history of other infectious and parasitic diseases; Z87.09 Personal history of other diseases of the respiratory system; F17.210 Nicotine dependence, cigarettes, uncomplicated; R11.10 Vomiting, unspecified
CPT/HCPCS: 36415; 71045; 80048; 80053; 81003; 81015; 82550; 82803; 82947; 83605; 83735; 84100; 84484; 85025; 85610; 86140; 87641; 93005; 96361; 96372; 96374; 99284; A9270-GY; G0378; J1644; J1815; J3475; J3480

== ENCOUNTER 2018-07-20 11:34 | Emergency (ER) | payer BC ==
[2018-07-20 11:53] VITALS: BP 177/111
--- NOTE | 2018-07-20 12:40 | UC ---
FLU HPI - HPI Summary HPI Summary: ONSET YESTERDAY OF COUGH, CONGESTION, HOARSENESS, FATIGUE, BODY ACHES, PERALTA, LOOSE STOOLS AND SUBJECTIVE FEVER/CHILLS. PT IS A DIABETIC. LAST A1C SEVERAL WEEKS AGO ABOUT 8.4 PER PT. - History of Current Complaint Chief Complaint: UCGeneralIllness Stated Complaint: FLU-LIKE SYMPTOMS Time Seen by Provider: 07/20/18 11:36 Hx Obtained From: Patient Hx Last Menstrual Period: na Onset/Duration: Gradual Onset, Lasting Days - 1 DAY, Still Present Severity Currently: Moderate Severity Initially: Moderate Pain Intensity: 1 Pain Scale Used: 0-10 Numeric Associated Signs & Symptoms: Positive: Myalgia, Cough, Nasal Congestion, Headache, Diarrhea - Allergy/Home Medications Allergies/Adverse Reactions: Allergies Allergy/AdvReac Type Severity Reaction Status Date / Time black pepper Allergy Severe See Comment Verified 07/20/18 11:53 ENVIRONMENTAL ALLERGIES Allergy Unknown Uncoded 07/20/18 11:53 Reaction Details Home Medications: Home Medications Trandolapril (NF) [Mavik (NF)] 1 mg PO DAILY WITH MEAL 07/20/18 [History Confirmed 07/20/18] PMH/Surg Hx/FS Hx/Imm Hx Endocrine History: Diabetes Cardiovascular History: Hypertension Respiratory History: COPD, Asthma Other History Of: Hepatitis C - Surgical History Surgical History: Yes Surgery Procedure, Year, and Place: Skin graft RIGHT [place]. Hysterectomy 2007 [facility]. RIGHT SHOULDER SURGERY 2008 [facility]. Right Carpal tunnel, 2013. RIGHT SHOULDER SURGERY 2013 [facility]. LEFT CARPAL TUNNEL RELEASE- 07/29/17 [facility] - Family History Known Family History: Positive: Cardiac Disease, Hypertension, Diabetes - Social History Alcohol Use: Pt states does not drink Alcohol Amount: 18 beers/week Substance Use Type: None Substance Use Comment - Amount & Last Used: "i think i smoked a blunt last night " Smoking Status (MU): Heavy Every Day Tobacco Smoker Type: Cigarettes Amount Used/How Often: 1-3 CIGARETTES PER DAY X OFF AND ON 20 YEARS Length of Time of Smoking/Using Tobacco: 20 - 30 years Have You Smoked in the Last Year: Yes Household Exposure Type: Cigarettes - Immunization History Most Recent Influenza Vaccination: 03/2018 Most Recent Tetanus Shot: unknown Most Recent Pneumonia Vaccination: never Review of Systems All Other Systems Reviewed And Are Negative: Yes Constitutional: Positive: Fever, Chills, Fatigue ENT: Positive: Nasal Discharge, Sinus Congestion Respiratory: Positive: Cough Cardiovascular: Positive: Negative Gastrointestinal: Positive: Diarrhea Genitourinary: Positive: Negative Musculoskeletal: Positive: Arthralgia, Myalgia Neurological: Positive: Headache Physical Exam Triage Information Reviewed: Yes Appearance: No Pain Distress, Well-Nourished, Ill-Appearing - MODERATELY Vital Signs: Initial Vital Signs Temp 97.8 F 07/20/18 11:49 Pulse 67 07/20/18 11:49 Resp 18 07/20/18 11:49 BP 177/111 07/20/18 11:49 Pulse Ox 97 07/20/18 11:49 Laboratory Tests 07/20/18 12:02 Influenza A (Rapid) Negative Influenza B (Rapid) Negative Vital Signs Reviewed: Yes Eyes: Positive: Conjunctiva Clear ENT: Positive: Hearing grossly normal, Pharynx normal, TMs normal, Hoarse voice Neck: Positive: Supple, Nontender, No Lymphadenopathy Respiratory Exam: Normal Cardiovascular Exam: Normal Abdomen Description: Positive: Soft Musculoskeletal: Positive: No Edema Neurological: Positive: Alert Psychological: Positive: Age Appropriate Behavior Skin: Negative: Rashes Flu Course/Dx - Course Course Of Treatment: PT WITH LIKELY VIRAL ILLNESS BUT HAS A H/O UNCONTROLLED DIABETES AND SO IS RELATIVELY IMMUNOSUPPRESSED. WILL COVER WITH ANTIBIOTICS. REPEAT BP 168/88. PT ADVISED TO MONITOR AND FOLLOW-UP WITH PCP. TO ED IF SX WORSEN. - Differential Dx/Diagnosis Provider Diagnosis: Viral syndrome Discharge - Sign-Out/Discharge Documenting (check all that apply): Patient Departure All imaging exams completed and their final reports reviewed: Yes - Discharge Plan Condition: Stable Disposition: HOME Prescriptions: Azithromycin 500 mg PO DAILY #5 tab Codeine Phosphate/Guaifenesin [Codeine-Guaifen 10-100 mg/5 ml] 5 - 10 ml PO Q6H PRN #150 ml MDD 40ML PRN Reason: Cough Patient Education Materials: Viral Syndrome (ED) Forms: *Work Release Referrals: Francheska Gallardo [Primary Care Provider] - If Needed Additional Instructions: FLU SWAB NEGATIVE. CHEST XRAY UNREMARKABLE. YOUR SYMPTOMS MAY BE VIRALLY MEDIATED BUT GIVEN YOUR HISTORY OF UNCONTROLLED DIABETES WE WILL COVER YOU WITH ANTIBIOTICS. IF YOU START THE MEDICINE BE SURE TO TAKE IT FOR THE FULL COURSE. REST, HYDRATE, OTC MEDS NEEDED. WILL ALSO GIVE COUGH MEDICINE. SEEK FOLLOW- UP WITH YOUR PCP IF YOU ARE NOT IMPROVING OVER THE NEXT 1-2 WEEKS. - Billing Disposition and Condition Condition: STABLE Disposition: Home
== END 2018-07-20 12:25 | disposition home or self-care (01) ==
LOC: UCEAST 11:34
DX: B34.9 Viral infection, unspecified (principal); E11.9 Type 2 diabetes mellitus without complications; I10 Essential (primary) hypertension; F17.210 Nicotine dependence, cigarettes, uncomplicated
CPT/HCPCS: 71046; 99212; G0463

== ENCOUNTER 2018-11-24 09:17 | Emergency (ER) | payer BC ==
[2018-11-24 10:07] VITALS: BP 127/84
--- NOTE | 2018-11-24 10:10 | UC ---
Skin Complaint HPI - HPI Summary HPI Summary: 53 yo female presents with rash to LEFT upper arm. She suffers from DM1 and tells me that she has a glucose monitor that she embeds in her skin to allow her to check her sugars by waving a device over her arm. She has been using this for 3 months. She changes the monitor every 14 days and switches arms each time. The last 2 times she has removed the monitor she has noticed skin irritation. She is concerned it is an allergic reaction or infection. She is having pain at the site. No discharge or fever. - History of Current Complaint Chief Complaint: UCSkin Time Seen by Provider: 11/24/18 10:07 Stated Complaint: Skin issue Hx Obtained From: Patient Hx Last Menstrual Period: na Onset/Duration: Gradual Onset Onset Severity: Moderate Current Severity: Severe Pain Intensity: 8 Pain Scale Used: 0-10 Numeric - Allergy/Home Medications Allergies/Adverse Reactions: Allergies Allergy/AdvReac Type Severity Reaction Status Date / Time black pepper Allergy Severe See Comment Verified 11/24/18 10:08 ENVIRONMENTAL ALLERGIES Allergy Unknown Uncoded 11/24/18 10:08 Reaction Details PMH/Surg Hx/FS Hx/Imm Hx Endocrine History: Diabetes Cardiovascular History: Hypertension Other History Of: Hepatitis C - Surgical History Surgical History: Yes Surgery Procedure, Year, and Place: Skin graft RIGHT ANKLE 1975 [facility]. Hysterectomy 2007 [facility]. RIGHT SHOULDER SURGERY 2009 [facility]. Right Carpal tunnel, 2013. RIGHT SHOULDER SURGERY 2014 [facility]. LEFT CARPAL TUNNEL RELEASE- 07/29/17 [facility] - Family History Known Family History: Positive: Cardiac Disease, Hypertension, Diabetes - Social History Lives: With Family Alcohol Use: Weekly Alcohol Amount: 18 beers/week Substance Use Type: None Substance Use Comment - Amount & Last Used: "i think i smoked a blunt last night " Smoking Status (MU): Light Every Day Tobacco Smoker Type: Cigarettes Amount Used/How Often: 1-3 CIGARETTES PER DAY X OFF AND ON 20 YEARS Length of Time of Smoking/Using Tobacco: 20 - 30 years Have You Smoked in the Last Year: Yes Household Exposure Type: Cigarettes - Immunization History Most Recent Influenza Vaccination: 03/2018 Most Recent Tetanus Shot: unknown Most Recent Pneumonia Vaccination: never Review of Systems All Other Systems Reviewed And Are Negative: Yes Constitutional: Positive: Negative Skin: Positive: Rash Respiratory: Positive: Negative Cardiovascular: Positive: Negative Neurovascular: Positive: Negative Neurological: Positive: Negative Psychological: Positive: Negative Physical Exam - Summary Physical Exam Summary: GENERAL: NAD. WDWN. No pain distress. SKIN: LEFT UPPER ARM: 2.0cm diameter area of contact dermatitis. Mild erythema and TTP. No induration, abscess, streaking, edema, warmth, or drainage. NECK: Supple. Nontender. No lymphadenopathy. CHEST: No accessory muscle use. Breathing comfortably and in no distress. CV: Pulses intact. Cap refill <2seconds NEURO: Alert. PSYCH: Age appropriate behavior. Triage Information Reviewed: Yes Vital Signs: Initial Vital Signs Temp 97.8 F 11/24/18 10:02 Pulse 84 11/24/18 10:02 Resp 16 11/24/18 10:02 BP 127/84 11/24/18 10:02 Pulse Ox 98 11/24/18 10:02 Vital Signs Reviewed: Yes Course/Dx - Course Course Of Treatment: I suspect this is a contact dermatitis from her glucose monitor, but given her brittle DM1 hx - will rx for antibiotics at this time. It is a difficulty situation because this new monitor is allowing her to achieve great glucose control as she has had DKA many times in the past, but the monitor seems to be causing increased skin irritation. At this time I believe it is more important to continue to use the monitor and advised her to call her Mering[facility] for further instruction. - Diagnoses Provider Diagnosis: Contact dermatitis, Type 1 diabetes Discharge - Sign-Out/Discharge Documenting (check all that apply): Patient Departure All imaging exams completed and their final reports reviewed: No Studies - Discharge Plan Condition: Stable Disposition: HOME Prescriptions: Cephalexin CAP* [Keflex CAP*] 500 mg PO BID #10 cap Patient Education Materials: Contact Dermatitis (DC) Referrals: Dayanara RIGGS,Francheska Frey [Primary Care Provider] - Additional Instructions: If you develop a fever, shortness of breath, chest pain, new or worsening symptoms - please call your PCP or go to the ED immediately. 1) Do not use the diabetes monitor on the left arm until this area is well healed 2) If you noticed increased redness, pain, swelling, or develop a fever - please be rechecked immediately - Billing Disposition and Condition Condition: STABLE Disposition: Home
== END 2018-11-24 10:23 | disposition home or self-care (01) ==
LOC: UCEAST 09:17
DX: L25.9 Unspecified contact dermatitis, unspecified cause (principal); E10.9 Type 1 diabetes mellitus without complications; Z96.41 Presence of insulin pump (external) (internal); J30.2 Other seasonal allergic rhinitis; I10 Essential (primary) hypertension; F17.210 Nicotine dependence, cigarettes, uncomplicated
CPT/HCPCS: 99212; G0463

== ENCOUNTER 2018-12-16 10:18 | Emergency (ER) | payer BC ==
[2018-12-16 10:24] VITALS: BP 128/77
--- NOTE | 2018-12-16 10:33 | UC ---
Skin Complaint HPI - HPI Summary HPI Summary: Patient is a 53-year-old female who presents to the urgent care with chief complaint of having erythema, swelling in the right lower quadrant. The symptoms are there for the last 2 weeks. This started at the site of injection of insulin. Patient is taking Keflex with no improvement symptoms. She denies any fever, denies any chills denies any other symptoms. - History of Current Complaint Chief Complaint: UCRash Stated Complaint: rash Hx Obtained From: Patient Hx Last Menstrual Period: na ?: No Onset/Duration: Lasting Weeks Timing: Constant Onset Severity: Mild Pain Intensity: 3 - Allergy/Home Medications Allergies/Adverse Reactions: Allergies Allergy/AdvReac Type Severity Reaction Status Date / Time black pepper Allergy Severe See Comment Verified 12/16/18 10:24 ENVIRONMENTAL ALLERGIES Allergy Unknown Uncoded 12/16/18 10:24 Reaction Details PMH/Surg Hx/FS Hx/Imm Hx Endocrine History: Diabetes, Hyperthyroidism Other History Of: Hepatitis C - Surgical History Surgical History: Yes Surgery Procedure, Year, and Place: Skin graft RIGHT ANKLE 1975 [facility]. Hysterectomy 2007 [facility]. RIGHT SHOULDER SURGERY 2008 [facility]. Right Carpal tunnel, 2013. RIGHT SHOULDER SURGERY 2014 [facility]. LEFT CARPAL TUNNEL RELEASE- 07/29/17 [facility] - Family History Known Family History: Positive: Cardiac Disease, Hypertension, Diabetes - Social History Alcohol Use: Weekly Alcohol Amount: 18 beers/week Substance Use Type: None Substance Use Comment - Amount & Last Used: "i think i smoked a blunt last night " Smoking Status (MU): Light Every Day Tobacco Smoker Type: Cigarettes Amount Used/How Often: 1-3 CIGARETTES PER DAY X OFF AND ON 20 YEARS Length of Time of Smoking/Using Tobacco: 20 - 30 years Have You Smoked in the Last Year: Yes Household Exposure Type: Cigarettes - Immunization History Most Recent Influenza Vaccination: 03/2018 Most Recent Tetanus Shot: unknown Most Recent Pneumonia Vaccination: never Review of Systems All Other Systems Reviewed And Are Negative: Yes Constitutional: Positive: Negative Skin: Positive: Rash Eyes: Positive: Negative ENT: Positive: Negative Respiratory: Positive: Negative Cardiovascular: Positive: Negative Gastrointestinal: Positive: Negative Genitourinary: Positive: Negative Motor: Positive: Negative Neurovascular: Positive: Negative Musculoskeletal: Positive: Negative Neurological: Positive: Negative Psychological: Positive: Negative Is Patient Immunocompromised?: Yes Physical Exam - Summary Physical Exam Summary: VITAL SIGNS: Reviewed. GENERAL: Patient is a well developed and nourished female who is lying comfortable in the stretcher. Patient is not in any acute respiratory distress. HEAD AND FACE: No signs of trauma. No ecchymosis, hematomas or skull depressions. No sinus tenderness. EYES: PERRLA, EOMI x 2, No injected conjunctiva, no nystagmus. EARS: Hearing grossly intact. Ear canals and tympanic membranes are within normal limits. MOUTH: Oropharynx within normal limits. NECK: Supple, trachea is midline, no adenopathy, no JVD, no carotid bruit, no c- spine tenderness, neck with full ROM. CHEST: Symmetric, no tenderness at palpation LUNGS: Clear to auscultation bilaterally. No wheezing or crackles. CVS: Regular rate and rhythm, S1 and S2 present, no murmurs or gallops appreciated. ABDOMEN: Soft, non-tender. No signs of distention. No rebound no guarding, and no masses palpated. Bowel sounds are normal. EXTREMITIES: FROM in all major joints, no edema, no cyanosis or clubbing. NEURO: Alert and oriented x 3. No acute neurological deficits. Speech is normal and follows commands. SKIN: erythema and swelling in the right lower quadrant. Triage Information Reviewed: Yes Appearance: Well-Appearing, No Pain Distress, Well-Nourished Vital Signs: Initial Vital Signs Temp 97.2 F 12/16/18 10:21 Pulse 64 12/16/18 10:21 Resp 18 12/16/18 10:21 BP 128/77 12/16/18 10:21 Pulse Ox 98 12/16/18 10:21 Course/Dx - Course Course Of Treatment: In the urgent care the patient has area of cellulitis in the right upper quadrant. Patient would benefit of Bactrim and if doesnt improve then we will have to perform an I&D. Patient understands and agrees. - Diagnoses Provider Diagnosis: Cellulitis Discharge - Sign-Out/Discharge Documenting (check all that apply): Patient Departure All imaging exams completed and their final reports reviewed: No Studies - Discharge Plan Condition: Stable Disposition: HOME Prescriptions: Sulfamethox/Trimethoprim DS* [Bactrim DS 800/160 TAB*] 1 tab PO BID #20 tab Patient Education Materials: Cellulitis (ED) Referrals: Dayanara RIGGS,Francheska Frey [Primary Care Provider] - Additional Instructions: Take medications as instructed Increase your fluid intake F/U with PCP in the next 2-3 days Return to the UC if symptoms worsen - Billing Disposition and Condition Condition: STABLE Disposition: Home
== END 2018-12-16 10:30 | disposition home or self-care (01) ==
LOC: UCEAST 10:18
DX: L03.311 Cellulitis of abdominal wall (principal); F17.210 Nicotine dependence, cigarettes, uncomplicated
CPT/HCPCS: 99212; G0463

== ENCOUNTER 2018-12-22 14:26 | Emergency (ER) | payer BC ==
[2018-12-22] MEDS ORDERED: Lidocaine 1% w EPI 1:200,000* 30 ML VIAL INJ ONE (14:31)
[2018-12-22 14:36] VITALS: BP 126/71
--- NOTE | 2018-12-22 14:36 | UC ---
Skin Complaint HPI - HPI Summary HPI Summary: 53-year-old insulin-dependent diabetic presents with several weeks of tender, swollen area in her right low abdomen. She has been on 2 rounds of antibiotics with no resolution. She denies any fever, redness or drainage from the wound. This is a site that she previously used for her insulin pump implant. - History of Current Complaint Time Seen by Provider: 12/22/18 14:31 Stated Complaint: stomach lanced Hx Obtained From: Patient Hx Last Menstrual Period: na - Allergy/Home Medications Allergies/Adverse Reactions: Allergies Allergy/AdvReac Type Severity Reaction Status Date / Time black pepper Allergy Severe See Comment Verified 12/22/18 14:37 ENVIRONMENTAL ALLERGIES Allergy Unknown Uncoded 12/22/18 14:37 Reaction Details PMH/Surg Hx/FS Hx/Imm Hx Endocrine History: Diabetes Other History Of: Hepatitis C - Surgical History Surgical History: Yes Surgery Procedure, Year, and Place: Skin graft RIGHT ANKLE 1975 [place]. [place] [facility] [place]ER SURG[place] [facility] [place]. Right Carpal tunnel, 2012. RIGHT SHOULDER SURGERY 2013 [facility] [place] LEFT CARPAL TUNNEL RELEASE- 07/29/17 [facility] - Family History Known Family History: Positive: Cardiac Disease, Hypertension, Diabetes - Social History Occupation: Employed Full-time Alcohol Use: Weekly Alcohol Amount: 18 beers/week Substance Use Type: None Substance Use Comment - Amount & Last Used: "i think i smoked a blunt last night " Smoking Status (MU): Light Every Day Tobacco Smoker Type: Cigarettes Amount Used/How Often: 1-3 CIGARETTES PER DAY X OFF AND ON 20 YEARS Length of Time of Smoking/Using Tobacco: 20 - 30 years Have You Smoked in the Last Year: Yes Household Exposure Type: Cigarettes - Immunization History Most Recent Influenza Vaccination: 03/2018 Most Recent Tetanus Shot: unknown Most Recent Pneumonia Vaccination: never Review of Systems All Other Systems Reviewed And Are Negative: Yes Constitutional: Negative: Fever Skin: Positive: Other - Swelling, abscess. Negative: Rash, Bruising Respiratory: Positive: Negative Cardiovascular: Positive: Negative Gastrointestinal: Positive: Abdominal Pain - Tenderness only in the site of swelling in the abdominal wall Motor: Positive: Negative Physical Exam Triage Information Reviewed: Yes Appearance: Well-Appearing, No Pain Distress, Well-Nourished Eye Exam: Normal ENT Exam: Normal Respiratory: Positive: Lungs clear Cardiovascular: Positive: RRR Abdomen Description: Positive: Other: - Insulin pump implanted into the left lower abdomen. There is a area of swelling at previous implant site in the right lower abdomen with induration, no redness, no discharge Musculoskeletal Exam: Normal Neurological: Positive: Alert Psychological Exam: Normal Skin Exam: Other - Abdominal wall lesion as above, induration measures 3 cm in diameter Procedures - Procedure Summary Procedure Summary: Incision and drainage of skin lesion: Preop diagnosis: Abdominal wall abscess Postop diagnosis: Abdominal wall cyst Description: The skin was cleaned with alcohol and anesthetized with 2cc of Lidocaine 1% with epi. A stab incision was made into the lesion with an 11 blade scalpel. Clear fluid drained. No sebum was noted. No purulence was noted. A pearly white cyst wall was observed. At that time an elliptical incision was made with a 15 blade scalpel. The cyst wall was completely removed. The dermis was then closed with 3 sutures of 4-0 Vicryl and the skin closed overlying with 3 simple interrupted sutures of 4-0 Prolene. She tolerated this well without complication. Diagnostics - Radiology US Radiology Interpretation Completed By: ED Physician - Bedside ultrasound performed by ms shows localized 1 cm fluid collection without tissue edema consistent with cyst versus abscess Course/Dx - Course Course Of Treatment: Bedside ultrasound confirmed free fluid in the area of concern. Incision and drainage performed. With fluid and cyst wall seen. Cyst excised. Continue antibiotics. Follow-up for suture removal. - Differential Diagnoses - Skin Complaint Differential Diagnoses: Abscess, Other - cyst - Diagnoses Provider Diagnosis: Cyst of soft tissue Discharge - Sign-Out/Discharge Documenting (check all that apply): Patient Departure All imaging exams completed and their final reports reviewed: No Studies - Discharge Plan Condition: Improved Disposition: HOME Patient Education Materials: Abscess (ED) Referrals: Dayanara RIGGS,Francheska Frey [Primary Care Provider] - Additional Instructions: Keep clean and dry. Continue antibiotic. Return if worse, fever, vomiting, rising blood sugars, concern for infection or other concerns. Sutures to be removed in 7-10 days time. - Billing Disposition and Condition Condition: IMPROVED Disposition: Home
== END 2018-12-22 15:27 | disposition home or self-care (01) ==
LOC: UCEAST 14:26
DX: L72.8 Other follicular cysts of the skin and subcutaneous tissue (principal); F17.210 Nicotine dependence, cigarettes, uncomplicated; B19.20 Unspecified viral hepatitis C without hepatic coma; E11.9 Type 2 diabetes mellitus without complications; Z79.4 Long term (current) use of insulin; Z96.41 Presence of insulin pump (external) (internal)
CPT/HCPCS: 10060; 99211; G0463

== ENCOUNTER 2019-01-14 12:40 | Emergency (ER) | payer BC ==
[2019-01-14] MEDS ORDERED: Dextrose 50% Syringe 50 ML* 25 GM/50 ML SYRINGE ONE (13:05)
--- NOTE | 2019-01-14 13:05 | ED ---
HPI Diabetic - HPI Summary HPI Summary: This patient is a 53 year old female presenting to [facility] with a chief complaint of hypoglycemia [employer]. The patient has a Hx of DM and has had confusion, weakness and nausea. She reports cough and nasal discharge since a couple days ago. She has an insulin pump that she has turned off. She states her blood sugar level was 42 g/dl at last readable check after drinking 3 glasses of juice but prior to that was unreadable at below 30 g/dl. Montelukast Sodium TAB* [Singulair 10 MG TAB*] 10 mg PO QPM 01/11/16 [History Confirmed 12/22/18] LevoCETirizine TAB (NF) 5 mg PO QPM 05/29/16 [History Confirmed 12/16/18] Cholecalciferol TAB* [Vitamin D TAB*] 2,000 units PO QPM 08/25/17 [History Confirmed 12/16/18] Humulog Insulin Infusion 1.5 units SUBCUT Q1HR 08/25/17 [History Confirmed 12/16] Blood Sugar Diagnostic [Test Strips] 1 each [facility] TID #100 strip 07/07/18 [Rx Confirmed 12/16/18] Telmisartan 40 mg PO BEDTIME 07/07/18 [History Confirmed 12/22/18] Trandolapril (NF) [Mavik (NF)] 1 mg PO DAILY WITH MEAL 07/20/18 [History Confirmed 12/22/18] Sulfamethox/Trimethoprim DS* [Bactrim DS 800/160 TAB*] 1 tab PO BID #20 tab [Rx Confirmed 12/22/18] - History Of Current Complaint Chief Complaint: EDDiabeticProb Time Seen by Provider: 01/14/19 12:58 Hx Obtained From: Patient Hx Last Menstrual Period: na Onset/Duration: Sudden Onset Character: Alert Related History: Insulin Pump - Allergies/Home Medications Allergies/Adverse Reactions: Allergies Allergy/AdvReac Type Severity Reaction Status Date / Time black pepper Allergy Severe See Comment Verified 01/14/19 12:42 ENVIRONMENTAL ALLERGIES Allergy Unknown Uncoded 01/14/19 12:42 Reaction Details PMH/Surg Hx/FS Hx/Imm Hx Endocrine/Hematology History: Reports: Hx Diabetes Denies: Hx Thyroid Disease Cardiovascular History: Reports: Hx Hypertension Denies: Other Cardiovascular Problems/Disorders Respiratory History: Reports: Hx Asthma - ON MEDICATION, Hx Chronic Obstructive Pulmonary Disease (COPD) Denies: Other Respiratory Problems/Disorders GI History: Denies: Hx Ulcer, Other GI Disorders History: Denies: Other Problems/Disorders Musculoskeletal History: Reports: Hx Orthopedic Injury - carpal tunnel, Hx Tendonitis - LEFT HAND, Other Musculoskeletal History - SCIATICA INTERMITTENT- AFFECTS LEFT LEG Sensory History: Denies: Hx Contacts or Glasses, Hx Deafness, Hx Hearing Aid Opthamlomology History: Denies: Hx Contacts or Glasses Neurological History: Reports: Other Neuro Impairments/Disorders - LEFT HAND NUMBNESS AND TINGLING, CARPAL TUNNEL SURG 07/29/17 - Cancer History Hx Chemotherapy: No Hx Radiation Therapy: No - Surgical History Surgery Procedure, Year, and Place: Skin graft RIGHT ANKLE 1975 [facility]. Hysterectomy 2007 [facility]. RIGHT SHOULDER SURGERY 2008 [facility]. Right Carpal tunnel, 2012. RIGHT SHOULDER SURGERY 2013 [facility]. LEFT CARPAL TUNNEL RELEASE- 07/29/17 [facility] Hx Anesthesia Reactions: No - Immunization History Date of Tetanus Vaccine: 2015 Date of Influenza Vaccine: 03/2017 Infectious Disease History: No Infectious Disease History: Reports: Hx Tuberculosis - POS PPD, neg blood test Denies: Hx Clostridium Difficile, Hx Hepatitis - hep c treated now, Hx Human Immunodeficiency Virus (HIV), Hx of Known/Suspected MRSA, Hx Shingles, Hx Known/ Suspected VRE, Hx Known/Suspected VRSA, History Other Infectious Disease, Traveled Outside the in Last 30 Days - Family History Known Family History: Positive: Cardiac Disease, Hypertension, Diabetes - Social History Alcohol Use: Weekly Alcohol Amount: 18 beers/week Hx Substance Use: No Substance Use Type: Reports: None Substance Use Comment - Amount & Last Used: "i think i smoked a blunt last night " Hx Tobacco Use: Yes Smoking Status (MU): Light Every Day Tobacco Smoker Type: Cigarettes Amount Used/How Often: 1-3 CIGARETTES PER DAY X OFF AND ON 20 YEARS Length of Time of Smoking/Using Tobacco: 20 - 30 years Have You Smoked in the Last Year: Yes Review of Systems Positive: Nasal Discharge Positive: Cough Positive: Nausea Neurological: Other Positive: Weakness All Other Systems Reviewed And Are Negative: Yes Physical Exam - Summary Physical Exam Summary: Appearance: The patient is well-nourished in no acute distress and in no acute pain. Skin: The skin is warm and dry and skin color reflects adequate perfusion. HEENT: The head is normocephalic and atraumatic. The pupils are equal and reactive. The conjunctivae are clear and without drainage. Nares are patent and without drainage. Mouth reveals moist mucous membranes and the throat is without erythema and exudate. The external ears are intact. The ear canals are patent and without drainage. The tympanic membranes are intact. Neck: The neck is supple with full range of motion and non-tender. There are no carotid bruits. There is no neck vein distension. Respiratory: Chest is non-tender. Lungs are clear to auscultation and breath sounds are symmetrical and equal. Cardiovascular: Heart is regular rate and rhythm. There is no murmur or rub auscultated. There is no peripheral edema and pulses are symmetrical and equal. Abdomen: The abdomen is soft and non-tender. There are normal bowel sounds heard in all four quadrants and there is no organomegaly palpated. Musculoskeletal: There is no back tenderness noted. Extremities are non-tender with full range of motion. There is good capillary refill. There is no peripheral edema or calf tenderness elicited. Neurological: Patient is alert and oriented to person, place and time. The patient has symmetrical motor strength in all four extremities. Cranial nerves are grossly intact. Deep tendon reflexes are symmetrical and equal in all four extremities. Slurred speech. Psychiatric: The patient has an appropriate affect and does not exhibit any anxiety or depression. Triage Information Reviewed: Yes Vital Signs On Initial Exam: Initial Vitals Temp Pulse Resp BP Pulse Ox 97.7 F 84 16 155/96 97 01/14/19 12:43 01/14/19 12:43 01/14/19 12:43 01/14/19 12:43 01/14/19 12:43 Vital Signs Reviewed: Yes Diagnostics - Vital Signs Vital Signs Temp Pulse Resp BP Pulse Ox 01/14/19 12:43 97.7 F 84 16 155/96 97 - Laboratory Result Diagrams: 01/14/19 13:36 01/14/19 13:36 Lab Statement: Any lab studies that have been ordered have been reviewed, and results considered in the medical decision making process. Diabetic Course/Dx - Course Course Of Treatment: Ms. Washington hasn't been feeling well all morning. She came to work but continued to feel ill. She can remote check her blood sugar using her insulin pump. He was reading low and she drank several glasses of orange juice some with added sugar. She continued to feel bad and asked to come to the emergency department. Here an IV was established as she was a little bit confused and slurring her speech with her monitor showing a blood sugar of 42. She was given an amp of D50. A fingerstick glucose was obtained at that time along with regular labs and was actually reading high. Her blood sugar came back at 700 without any sign of DKA. Apparently her insulin pump is not functioning correctly. She was given 0.1 units per kilogram of regular insulin and her blood sugar came down to the 300s. She continued to feel fatigued but was behaving perfectly appropriately at that point. I recommended she use fingerstick glucoses and regular insulin until she can follow up with her doctors. She has all of that at home and is well versed in it. - Diagnoses Provider Diagnoses: Hyperglycemia Discharge - Sign-Out/Discharge Documenting (check all that apply): Patient Departure - Discharge Patient Received Moderate/Deep Sedation with Procedure: No - Discharge Plan Condition: Stable Disposition: HOME Patient Education Materials: Diabetic Hyperglycemia (ED) Referrals: Francheska Nichole PA [Primary Care Provider] - Additional Instructions: Return to ED with any new or worsening symptoms. Follow up with Dr. Vo on Wednesday. - Billing Disposition and Condition Condition: STABLE Disposition: Home - Attestation Statements Document Initiated by Wade: Yes Documenting Scribe: Linus Salgado Provider For Whom Wade is Documenting (Include Credential): Lm Hernandez MD Scribe Attestation: Linus Spear scribed for Lm Hernandez MD on 01/14/19 at 2116. Scribe Documentation Reviewed: Yes Provider Attestation: The documentation as recorded by the Linus jolley accurately reflects the service I personally performed and the decisions made by me, Lm Hernandez MD Status of Scribe Document: Viewed
[2019-01-14] MEDS ORDERED: Dextrose 50% Syringe 50 ML* 25 GM/50 ML SYRINGE IV PUSH ONE (13:07)
[2019-01-14 13:34] LABS: Urine Appearance Cloudy; Urine Bacteria Absent (Absent); Urine Bilirubin Negative (Negative); Urine Blood 1+ (Negative); Urine Color Yellow; Urine Glucose 3+(>=500 mg/dL) (Negative); Urine Ketones 1+ (Negative); Urine Nitrite Negative (Negative); Urine Protein Negative (Negative); Urine Red Blood Cell Trace(0-2/hpf) (Absent); Urine Specific Gravity 1.023 (1.010-1.030); Urine Urobilinogen Negative (Negative); Urine White Blood Cell 1+(6-10/hpf) (Absent)
[2019-01-14 13:42] LABS: ABS Basophils 0.1 10^3/ul (0-0.2); ABS Eosinophils 0.1 10^3/ul (0-0.6); ABS Lymphocytes 1.1 10^3/ul (1.0-4.8); ABS Monocytes 0.5 10^3/ul (0-0.8); ABS Neutrophils 6.5 10^3/ul (1.5-7.7); Eosinophil % 1.5 %; Hematocrit 39 % (35-47); Hemoglobin 13.2 g/dL (12.0-16.0); Mean Corpuscular HGB Conc 34 g/dL (31-36); Mean Corpuscular Hemoglobin 32 pg (27-31); Mean Corpuscular Volume 94 fL (80-97); Mean Platelet Volume 8.6 fL (7.4-10.4); Platelet Count 158 10^3/uL (150-450); Red Blood Count 4.13 10^6 /uL (3.70-4.87); Red Cell Distribution Width 14 % (10-15); White Blood Count 8.2 10^3/uL (3.5-10.8)
[2019-01-14 13:58] LABS: ALT 19 U/L (7-52); AST 19 U/L (13-39); Albumin/Globulin Ratio 1.2 (1-3); Alkaline Phosphatase 72 U/L (34-104); Anion Gap 8 mmol/L (2-11); BUN/Creatinine Ratio 26.9 (8-20); Blood Urea Nitrogen 18 mg/dL (6-24); C Reactive Protein < 1.00 mg/L (<8.01); CO2 Carbon Dioxide 26 mmol/L (22-32); Calcium 9.8 mg/dL (8.6-10.3); Chloride 95 mmol/L (101-111); EGFR African American 110.6 (>60); EGFR Non-African American 91.4 (>60); Globulin 3.4 g/dL (2-4); Potassium 4.6 mmol/L (3.5-5.0); Sodium 129 mmol/L (135-145); Total Protein 7.4 g/dL (6.4-8.9)
[2019-01-14 14:02] LABS: Glucose 743 mg/dL (70-100)
[2019-01-14] MEDS ORDERED: Insulin REGULAR(*) 1 UNITS UNIT IV PUSH ONE (14:32)
[2019-01-14] MEDS ORDERED: Insulin IVPB 100 units/100 ml 100 UNITS/100 ML UNIT IV ONE (14:45)
[2019-01-14 16:34] VITALS: BP 120/92
--- NOTE | 2019-01-16 17:15 | PN ---
Progress Note - Progress Note Date of Service: 01/14/19 Note: patient was called on 5:15 PM on 01/16/19 to make aware of results Urine culture grew Escherichia coli 100,000 Patient was not placed on antibiotics prior to discharge Patient states she is asymptomatic, however would still like to be treated Patient is given Keflex 3 times daily 5 days
== END 2019-01-14 16:34 | disposition home or self-care (01) ==
LOC: ED 12:40
DX: E11.65 Type 2 diabetes mellitus with hyperglycemia (principal); I10 Essential (primary) hypertension; J44.9 Chronic obstructive pulmonary disease, unspecified; F17.210 Nicotine dependence, cigarettes, uncomplicated; Z96.41 Presence of insulin pump (external) (internal); Z79.4 Long term (current) use of insulin
CPT/HCPCS: 36415; 80053; 81003; 81015; 85025; 86140; 87077; 87086; 87186; 96374; 96375; 99283; J1815

== ENCOUNTER 2019-02-07 07:48 | Emergency (ER) | payer BC | END 2019-02-07 07:55 | disposition left against medical advice (07) | LOC: UCEAST 07:48 | DX: Z53.8 Procedure and treatment not carried out for other reasons (principal) ==

== ENCOUNTER 2019-02-07 08:14 | Observation (INO) | payer BC ==
[2019-02-07] MEDS ORDERED: Ondansetron INJ* 2 MG/ML VIAL IV ONE (08:52)
[2019-02-07] MEDS ORDERED: NS 0.9% 1000 ML** 1,000 ML IV ONE ×2 (08:52→09:48)
--- NOTE | 2019-02-07 08:56 | ED ---
HPI Diabetic - HPI Summary HPI Summary: This patient is a 53 year old F presenting to [facility] with a chief complaint of high fasting blood sugar of 528 since today morning. Pt is a type I diabetic, and has PMHx of DKA, and HTN. Per triage, the patient rates the pain 4/10 in severity. Patient reports vomiting, fevers, nausea, chills, pain in abdomen. Patient denies rashes. Pt has not been outdoors or camping recently. - History Of Current Complaint Chief Complaint: EDDiabeticProb Time Seen by Provider: 02/07/19 08:23 Hx Obtained From: Patient Hx Last Menstrual Period: na Onset/Duration: Lasting Minutes Timing: Constant Aggravating: Nothing Alleviating: Nothing Associated Signs & Symptoms: Negative - rashes, Abdominal Pain, Chills, Fever, Nausea, Vomiting Related History: DM I, Hx of DKA - Allergies/Home Medications Allergies/Adverse Reactions: Allergies Allergy/AdvReac Type Severity Reaction Status Date / Time black pepper Allergy Severe See Comment Verified 02/07/19 08:26 ENVIRONMENTAL ALLERGIES Allergy Unknown Uncoded 02/07/19 08:26 Reaction Details PMH/Surg Hx/FS Hx/Imm Hx Endocrine/Hematology History: Reports: Hx Diabetes Denies: Hx Thyroid Disease Cardiovascular History: Reports: Hx Hypertension Denies: Other Cardiovascular Problems/Disorders Respiratory History: Reports: Hx Asthma - ON MEDICATION, Hx Chronic Obstructive Pulmonary Disease (COPD) Denies: Other Respiratory Problems/Disorders GI History: Denies: Hx Ulcer, Other GI Disorders History: Denies: Other Problems/Disorders Musculoskeletal History: Reports: Hx Orthopedic Injury - carpal tunnel, Hx Tendonitis - LEFT HAND, Other Musculoskeletal History - SCIATICA INTERMITTENT- AFFECTS LEFT LEG Sensory History: Denies: Hx Contacts or Glasses, Hx Deafness, Hx Hearing Aid Opthamlomology History: Denies: Hx Contacts or Glasses Neurological History: Reports: Other Neuro Impairments/Disorders - LEFT HAND NUMBNESS AND TINGLING, CARPAL TUNNEL SURG 07/29/17 - Cancer History Hx Chemotherapy: No Hx Radiation Therapy: No - Surgical History Surgery Procedure, Year, and Place: Skin graft RIGHT ANKLE 1975 [facility]. Hysterectomy 2007 [facility]. RIGHT SHOULDER SURGERY 2008 [facility]. Right Carpal tunnel, 2013. RIGHT SHOULDER SURGERY 2013 [facility] [place]. LEFT CARPAL TUNNEL RELEASE- 07/29/17 [facility] [place] Hx Anesthesia Reactions: No - Immunization History Date of Tetanus Vaccine: 2015 Date of Influenza Vaccine: 03/2017 Immunizations Up to Date: Yes Infectious Disease History: No Infectious Disease History: Reports: Hx Tuberculosis - POS PPD, neg blood test Denies: Hx Clostridium Difficile, Hx Hepatitis - hep c treated now, Hx Human Immunodeficiency Virus (HIV), Hx of Known/Suspected MRSA, Hx Shingles, Hx Known/ Suspected VRE, Hx Known/Suspected VRSA, History Other Infectious Disease, Traveled Outside the [place] in Last 30 Days - Family History Known Family History: Positive: Cardiac Disease, Hypertension, Diabetes - Social History Occupation: Employed Full-time Alcohol Use: Weekly Alcohol Amount: 18 beers/week Hx Substance Use: No Substance Use Type: Reports: None Substance Use Comment - Amount & Last Used: "i think i smoked a blunt last night " Hx Tobacco Use: Yes Smoking Status (MU): Light Every Day Tobacco Smoker Type: Cigarettes Amount Used/How Often: 1-3 CIGARETTES PER DAY X OFF AND ON 20 YEARS Length of Time of Smoking/Using Tobacco: 20 - 30 years Have You Smoked in the Last Year: Yes Review of Systems Positive: Fever, Chills Positive: Abdominal Pain, Vomiting, Nausea Negative: Rash All Other Systems Reviewed And Are Negative: Yes Physical Exam - Summary Physical Exam Summary: GENERAL: Patient is a well-developed and nourished F who is lying comfortable in the stretcher. Patient is not in any acute respiratory distress. HEAD AND FACE: Normocephalic EYES: PERRLA, EOMI x 2. EARS: Hearing grossly intact. MOUTH: Oropharynx within normal limits. NECK: Supple, trachea is midline, no adenopathy, no JVD, no carotid bruit. CHEST: Symmetric, no tenderness at palpation LUNGS: Clear to auscultation bilaterally. No wheezing or crackles. CVS: Regular rate and rhythm, S1 and S2 present, no murmurs or gallops appreciated. ABDOMEN: Soft, non-tender. Bowel sounds are normal. No abnormal abdominal pulsations. EXTREMITIES: Full ROM in all major joints, no edema, no cyanosis or clubbing. NEURO: Alert and oriented x 3. No acute neurological deficits. Speech is normal and follows commands. SKIN: Dry and warm Triage Information Reviewed: Yes Vital Signs On Initial Exam: Initial Vitals Temp Pulse Resp BP Pulse Ox 97.8 F 88 18 123/79 100 02/07/19 08:15 02/07/19 08:15 02/07/19 08:15 02/07/19 08:15 02/07/19 08:15 Vital Signs Reviewed: Yes Diagnostics - Vital Signs Vital Signs Temp Pulse Resp BP Pulse Ox 02/07/19 08:27 9 130/70 02/07/19 08:15 97.8 F 88 18 123/79 100 - Laboratory Result Diagrams: 02/07/19 09:09 02/07/19 13:45 Lab Statement: Any lab studies that have been ordered have been reviewed, and results considered in the medical decision making process. - EKG 0850 Cardiac Rate: NL EKG Rhythm: Sinus Rhythm Summary of EKG Findings: An EKG at 0850 reveals normal sinus 73 bpm, nml axis. Re-Evaluation - Re-Evaluation First Eval Re-Evaluation Time: 10:25 Comment: Discussed results and plan of care with pt. Diabetic Course/Dx - Course Course Of Treatment: This patient is a 53 year old F presenting to [facility] with a chief complaint of high fasting blood sugar of 528 since today morning. Physical Exam Findings are nml. Blood work obtained. Glucose at 0909 is 533. POC Glucose at > 444. MCH is 32, VBG pH is 7.28, VBG pCO2 is 38, VBG HCO3 is 17.8, VBG Base excess is -8.2. Sodium is 132m Chloride is 96, Carbon Dioxide is 18, BUN/Creatinine Ratio is 23.8. Magnesium is 1.8. UA obtained. Urine Ketones is 2+, Urine Blood is 1+, Urine Nitrate is positive. Ur Squamous Epith Cells are present, urine Bacteria is 1+, Urine glucose is 3+. An EKG at 0850 reveals normal sinus 73 bpm, nml axis. In the ED course the patient was given insulin 100 units in 100 ml IV, Ondansetron INJ 4mg IV, and fluids. Case discussed with hospitalist. I discussed results with patient. The patient agrees with this plan. The pt will be admitted. - Diagnoses Provider Diagnoses: DKA (diabetic ketoacidoses) - Physician Notifications Discussed Care Of Patient With: Sandee Sanford Time Discussed With Above Provider: 10:16 Instructed by Provider To: Other - Discussed patient's case with Dr. Sanford, who accepts pt. - Critical Care Time Critical Care Time: 30-74 min Discharge - Sign-Out/Discharge Documenting (check all that apply): Patient Departure - Admit All imaging exams completed and their final reports reviewed: Yes Patient Received Moderate/Deep Sedation with Procedure: No - Discharge Plan Condition: Improved Disposition: ADMITTED TO [facility] - Billing Disposition and Condition Condition: IMPROVED Disposition: Admitted to [facility] - Attestation Statements Document Initiated by Deweye: Yes Documenting Scribe: Laura Martinez Provider For Whom Wade is Documenting (Include Credential): Dr. Jenaro Edward MD Scribe Attestation: Laura Spear, scribed for Dr. Jenaro Edward MD on 02/08/19 at 0735. Scribe Documentation Reviewed: Yes Provider Attestation: The documentation as recorded by the Laura jolley accurately reflects the service I personally performed and the decisions made by me, Dr. Jenaro Edward MD Status of Scribe Document: Viewed
[2019-02-07 09:17] LABS: ABS Eosinophils 0.1 10^3/ul (0-0.6); ABS Monocytes 0.4 10^3/ul (0-0.8); ABS Neutrophils 7.6 10^3/ul (1.5-7.7); Eosinophil % 1.4 %; Hematocrit 42 % (35-47); Hemoglobin 14.4 g/dL (12.0-16.0); Lymphocyte % 11.1 %; Mean Corpuscular HGB Conc 35 g/dL (31-36); Mean Corpuscular Hemoglobin 32 pg (27-31); Mean Corpuscular Volume 93 fL (80-97); Mean Platelet Volume 9.3 fL (7.4-10.4); Nucleated Red Blood Cells % 0.1; Platelet Count 159 10^3/uL (150-450); Red Blood Count 4.47 10^6 /uL (3.70-4.87); Red Cell Distribution Width 14 % (10-15); White Blood Count 9.2 10^3/uL (3.5-10.8)
[2019-02-07 09:36] LABS: Albumin 4.5 g/dL (3.2-5.2); Albumin/Globulin Ratio 1.3 (1-3); BUN/Creatinine Ratio 23.8 (8-20); EGFR African American 90.1 (>60); EGFR Non-African American 74.5 (>60); Globulin 3.5 g/dL (2-4); Magnesium 1.8 mg/dL (1.9-2.7); Total Bilirubin 0.7 mg/dL (0.2-1.0)
[2019-02-07 09:42] LABS: HCG Pregnancy 1.69 mIU/mL
[2019-02-07] MEDS ORDERED: Insulin IVPB 100 units/100 ml 100 UNITS/100 ML UNIT IV ONE (10:00)
[2019-02-07] MEDS ORDERED: Insulin IVPB 100 units/100 ml 100 UNITS/100 ML UNIT IV SCH (10:00)
[2019-02-07 10:25] LABS: Urine Appearance Cloudy; Urine Bacteria 1+ (Absent); Urine Bilirubin Negative (Negative); Urine Blood 1+ (Negative); Urine Color Yellow; Urine Glucose 3+(>=500 mg/dL) (Negative); Urine Ketones 2+ (Negative); Urine Nitrite Positive (Negative); Urine Protein Negative (Negative); Urine Red Blood Cell Trace(0-2/hpf) (Absent); Urine Specific Gravity 1.027 (1.010-1.030); Urine Squamous Epithelial Cell Present (Absent); Urine Urobilinogen Negative (Negative); Urine White Blood Cell Trace(0-5/hpf) (Absent)
[2019-02-07] MEDS ORDERED: Enoxaparin(*) 40 MG/0.4 ML SYR SUBCUT SCH (11:00)
[2019-02-07] MEDS ORDERED: LR IV SCH (11:47)
[2019-02-07 13:25] VITALS: BP 99/64
--- NOTE | 2019-02-07 14:18 | HP ---
ADMISSION HISTORY AND PHYSICAL: DATE OF ADMISSION: 02/07/19 REASON FOR ADMISSION: Diabetic ketoacidosis. HISTORY OF PRESENT ILLNESS: This patient is a 53-year-old white female with a longstanding history of insulin-dependent diabetes as well as hypertension and ethanol abuse, who came to the emergency department this morning of her own accord and was found to have a blood sugar of 533 with a bicarb of 18 and anion gap of 18, and was subsequently admitted with a diagnosis of diabetic ketoacidosis and was brought to the intensive care unit because she needs an insulin infusion. The patient states that she has been reducing her insulin dose because of insulin pump giving her consistently low readings. She denies any symptoms suggestive of an infection and denies any recent drug ingestion. There is also no chest pain or shortness of breath. OUTPATIENT MEDICATIONS: Include: 1. Insulin by pump at 1.5 units per hour. 2. Telmisartan 40 mg daily for blood pressure. ALLERGIES: There are no drug allergies, but there is an allergy to black pepper , reaction is unknown. There are unknown environmental allergies, which also produce unknown reactions. SOCIAL HISTORY: The patient is single and lives alone. She works in the food industry. There is no history of smoking, but she does claim an intermittent history of alcohol abuse, none recently. REVIEW OF SYSTEMS: Noncontributory. PHYSICAL EXAMINATION GENERAL: The patient was alert, oriented, appeared comfortable. VITAL SIGNS: Temp 96.5, heart rate 65 and regular, respirations 14 and nonlabored, O2 sat 98% on nasal oxygen a 2 L a minute. Blood pressure 120/76. HEENT: Pupils were in midposition and equal. There was no facial asymmetry. NECK: Supple. CHEST: Lungs are clear. CARDIAC EXAM: Revealed no murmurs or rubs. ABDOMEN: Nontender, not distended. EXTREMITIES: Warm, not cyanotic and not edematous. NEUROLOGIC: Exam was grossly intact. DIAGNOSTIC STUDIES/LAB DATA: Admission laboratory data: Significant labs on admission include a sodium of 132, chloride 96, bicarb 18, anion gap 18, glucose 533, magnesium 1.8, lipase is 15. White count normal at 9.2, hemoglobin normal at 14 and platelets normal at 159. EKG shows normal sinus rhythm with no acute ST or T-wave changes. Chest x-ray pending. IMPRESSION: Diabetic ketoacidosis as a result of a faulty insulin pump. Management will include intravenous fluids, IV insulin until anion gap normalizes, then we will switch to sliding scale and we will start treating the patient when the blood glucose is below 200. There is no reason to suspect an acute myocardial infarction or an infection in this patient. CRITICAL CARE TIME: 60 minutes. [id number] #: [id number] MTDD
[2019-02-07 14:23] LABS: BUN/Creatinine Ratio 30.2 (8-20); Calcium 8.9 mg/dL (8.6-10.3); EGFR African American 144.9 (>60); EGFR Non-African American 119.8 (>60); Potassium 3.7 mmol/L (3.5-5.0)
--- NOTE | 2019-02-07 19:45 | DS ---
DISCHARGE SUMMARY: DATE OF ADMISSION: 02/07/19 DATE OF DISCHARGE: 02/07/19 HISTORY OF PRESENT ILLNESS: The patient is a longstanding diabetic who is admitted with diabetic ketoacidosis that was precipitated by a malfunctioning glucose pump system. The patient was treated with intravenous insulin and within 4 hours of admission, her glucose had decreased to 200 and her anion gap had normalized. The decision at that point was that the patient did not require further hospitalization and with the use of the standard glucose monitoring system, that there would be no further problems, so the patient was discharged on a glucose pump at 1.5 units per hour with the glucose test strip monitoring. Other med at discharge was an antihypertensive agent, telmisartan 40 mg daily. The patient was clinically stable at the time of discharge. TIME SPENT ON DISCHARGE: 30 minutes. [id number] #: [id number] MTDD
[2019-02-08] MEDS ORDERED: Valsartan TAB* 40 MG PO SCH (09:00)
== END 2019-02-07 15:37 | disposition home or self-care (01) ==
LOC: ED 08:14 → INTOOBSV 10:28 → ICU 10:28
PROVIDERS: ADMIT Internal Medicine Critical Care Medicine; ATTEND Internal Medicine Critical Care Medicine
DX: E10.10 Type 1 diabetes mellitus with ketoacidosis without coma (principal); Z96.41 Presence of insulin pump (external) (internal); T85.614A Breakdown (mechanical) of insulin pump, initial encounter; I10 Essential (primary) hypertension; F10.10 Alcohol abuse, uncomplicated; J44.9 Chronic obstructive pulmonary disease, unspecified; J45.909 Unspecified asthma, uncomplicated; Z86.11 Personal history of tuberculosis; Z87.39 Personal history of other diseases of the musculoskeletal system and connective tissue; F17.210 Nicotine dependence, cigarettes, uncomplicated; R11.2 Nausea with vomiting, unspecified; R50.9 Fever, unspecified
CPT/HCPCS: 36415; 80048; 80053; 81003; 81015; 82803; 83605; 83690; 83735; 84484; 84702; 85025; 86140; 87040; 87077; 87086; 87186; 93005; 96361; 96374; 99284; A9270-GY; G0378; J1815; J2405

== ENCOUNTER 2020-09-24 19:50 | Inpatient (IN) ==
[2020-09-24] MEDS ORDERED: NS 0.9% 1000 ml BAG 1,000 ML IV ONE (19:59)
[2020-09-24 20:18] LABS: ABS Basophils 0.1 10^3/ul (0-0.2); ABS Eosinophils 0.2 10^3/ul (0-0.6); ABS Lymphocytes 1.6 10^3/ul (1.0-4.8); ABS Monocytes 0.5 10^3/ul (0-0.8); ABS Neutrophils 8.7 10^3/ul (1.5-7.7); Eosinophil % 2.2 %; Hematocrit 40 % (35-47); Hemoglobin 12.9 g/dL (12.0-16.0); Lymphocyte % 14.3 %; Mean Corpuscular HGB Conc 33 g/dL (31-36); Mean Corpuscular Hemoglobin 31 pg (27-31); Mean Corpuscular Volume 96 fL (80-97); Mean Platelet Volume 9.6 fL (7.4-10.4); Platelet Count 216 10^3/uL (150-450); Red Blood Count 4.12 10^6 /uL (3.70-4.87); Red Cell Distribution Width 15 % (10-15); White Blood Count 11.2 10^3/uL (3.5-10.8)
[2020-09-24 20:28] LABS: INR 0.92 (0.82-1.09)
[2020-09-24] MEDS ORDERED: Ondansetron 4 mg VIAL 2 MG/ML 2 ml VIAL IV ONE (20:29)
[2020-09-24] MEDS ORDERED: Ondansetron 4 mg VIAL 2 MG/ML 2 ml VIAL ONE (20:31)
[2020-09-24 20:44] LABS: ALT 22 U/L (7-52); AST 23 U/L (13-39); Albumin/Globulin Ratio 1.2 (1-3); Alkaline Phosphatase 67 U/L (34-104); Blood Urea Nitrogen 20 mg/dL (6-24); C Reactive Protein < 1.00 mg/L (<8.01); Calcium 9.5 mg/dL (8.6-10.3); Chloride 97 mmol/L (101-111); EGFR African American 93.5 (>60); EGFR Non-African American 77.3 (>60); Globulin 3.4 g/dL (2-4); Lipase 17 U/L (11.0-82.0); Potassium 4.8 mmol/L (3.5-5.0); Sodium 131 mmol/L (135-145); Total Protein 7.4 g/dL (6.4-8.9)
[2020-09-24 20:49] LABS: Anion Gap 23 mmol/L (2-11); CO2 Carbon Dioxide 11 mmol/L (22-32); Glucose 518 mg/dL (70-100)
[2020-09-24] MEDS ORDERED: Insulin Infusion 100unit/100mL 100 UNIT/100 ML BAG IV ONE (20:53)
[2020-09-24] MEDS ORDERED: NS 0.9% w/ 20 Meq KCL 1000 ml 1,000 ML IV SCH (21:00)
[2020-09-24 21:20] LABS: Urine Appearance Clear; Urine Bilirubin Negative (Negative); Urine Blood 1+ (Negative); Urine Color Straw; Urine Glucose 3+(>=500 mg/dL) (Negative); Urine Ketones 2+ (Negative); Urine Nitrite Negative (Negative); Urine Protein 1+(30 mg/dL) (Negative); Urine Specific Gravity 1.017 (1.010-1.030); Urine Urobilinogen Negative (Negative)
[2020-09-24 21:22] LABS: Urine Bacteria Absent (Absent); Urine Red Blood Cell Trace(0-2/hpf) (Absent); Urine Squamous Epithelial Cell Present (Absent); Urine White Blood Cell Trace(0-5/hpf) (Absent)
[2020-09-24 22:28] LABS: Calcium 8.8 mg/dL (8.6-10.3); Chloride 103 mmol/L (101-111); Sodium 133 mmol/L (135-145)
[2020-09-24 22:34] LABS: BUN/Creatinine Ratio 25.3 (8-20); Blood Urea Nitrogen 21 mg/dL (6-24); EGFR African American 85.7 (>60); EGFR Non-African American 70.9 (>60); Glucose 436 mg/dL (70-100); Glucose Confirmatory 436 mg/dL (70-100)
[2020-09-24 22:41] LABS: Anion Gap 22 mmol/L (2-11); CO2 Carbon Dioxide 8 mmol/L (22-32)
[2020-09-24] MEDS ORDERED: Ondansetron 4 mg VIAL 2 MG/ML 2 ml VIAL IV PRN (22:53)
[2020-09-24] MEDS ORDERED: NS 0.9% w/ 40 Meq KCL 1000 ML 1,000 ML IV SCH (23:00)
[2020-09-25] MEDS ORDERED: Insulin Infusion 100unit/100mL 100 UNIT/100 ML BAG IV SCH (02:00)
[2020-09-25] MEDS: D5W 1/2 NS 1000 ml BAG 1,000 ML IV SCH ×2 (02:03→05:46)
[2020-09-25 05:26] LABS: BUN/Creatinine Ratio 26.9 (8-20); Calcium 7.8 mg/dL (8.6-10.3); EGFR African American 147.1 (>60); EGFR Non-African American 121.5 (>60)
[2020-09-25] MEDS ORDERED: Insulin GLARGINE 100 un/ml 10 ml VIAL SUBCUT ONE (06:37)
[2020-09-25] MEDS ORDERED: Dextrose 50% Syringe 50 ml 25 GM/50 ML SYRINGE IV PUSH PRN ×2 (06:38→08:35)
[2020-09-25 11:00] LABS: ABS Eosinophils 0.2 10^3/ul (0-0.6); ABS Lymphocytes 1.5 10^3/ul (1.0-4.8); ABS Monocytes 0.5 10^3/ul (0-0.8); ABS Neutrophils 5.6 10^3/ul (1.5-7.7); Hematocrit 30 % (35-47); Hemoglobin 10.2 g/dL (12.0-16.0); Lymphocyte % 19.5 %; Mean Corpuscular HGB Conc 34 g/dL (31-36); Mean Corpuscular Hemoglobin 32 pg (27-31); Mean Corpuscular Volume 93 fL (80-97); Mean Platelet Volume 9.3 fL (7.4-10.4); Platelet Count 162 10^3/uL (150-450); Red Cell Distribution Width 14 % (10-15); White Blood Count 7.9 10^3/uL (3.5-10.8)
[2020-09-25 11:39] LABS: BUN/Creatinine Ratio 22.6 (8-20); Calcium 7.8 mg/dL (8.6-10.3); EGFR African American 143.9 (>60); EGFR Non-African American 118.9 (>60); Magnesium 1.6 mg/dL (1.9-2.7); Phosphorus 1.7 mg/dL (2.5-5.0); Potassium 3.6 mmol/L (3.5-5.0)
[2020-09-25] MEDS ORDERED: Magnesium Sulfate 2 gm BAG 2 GM/50 ML BAG IVPB ONE (11:41)
[2020-09-25 11:51] LABS: Anion Gap 15 mmol/L (2-11); Chloride 109 mmol/L (101-111); Potassium 4.2 mmol/L (3.5-5.0); Sodium 134 mmol/L (135-145)
[2020-09-25 11:52] LABS: CO2 Carbon Dioxide 10 mmol/L (22-32)
[2020-09-25 11:53] LABS: C Reactive Protein < 1.00 mg/L (<8.01); Calcium 7.9 mg/dL (8.6-10.3); EGFR African American 122.3 (>60); EGFR Non-African American 101.1 (>60); Glucose 292 mg/dL (70-100)
[2020-09-25 11:54] LABS: BUN/Creatinine Ratio 29.5 (8-20); Blood Urea Nitrogen 18 mg/dL (6-24)
[2020-09-25] MEDS ORDERED: NORMOSOL-R pH 7.4 1000 mL BAG 1,000 ML IV SCH (12:00)
[2020-09-25] MEDS ORDERED: Potassium Phosphate IV 15 MMOLE in NS 0.9% 250 ml 250 ML IVPB ONE (13:00)
[2020-09-25] MEDS: [UNRECOGNIZED DRUG - OTHER] BOTH EARS SCH ×3 (13:08→21:12)
[2020-09-25] MEDS ORDERED: Lactated Ringers 1000 ml BAG 1,000 ML IV SCH (18:00)
[2020-09-25] MEDS: Mometasone/Formoter 200/5 MDI INH SCH (20:05)
[2020-09-25 20:35] LABS: BUN/Creatinine Ratio 26.3 (8-20); Calcium 8.3 mg/dL (8.6-10.3); EGFR African American 132.3 (>60); EGFR Non-African American 109.3 (>60); Phosphorus 2.6 mg/dL (2.5-5.0)
[2020-09-26 05:37] LABS: Hematocrit 31 % (35-47); Hemoglobin 10.6 g/dL (12.0-16.0); Mean Corpuscular HGB Conc 34 g/dL (31-36); Mean Corpuscular Hemoglobin 31 pg (27-31); Mean Corpuscular Volume 92 fL (80-97); Mean Platelet Volume 9.1 fL (7.4-10.4); Platelet Count 152 10^3/uL (150-450); Red Blood Count 3.37 10^6 /uL (3.70-4.87); Red Cell Distribution Width 14 % (10-15); White Blood Count 5.9 10^3/uL (3.5-10.8)
[2020-09-26 05:52] LABS: BUN/Creatinine Ratio 22.4 (8-20); Calcium 8.2 mg/dL (8.6-10.3); EGFR African American 157.5 (>60); EGFR Non-African American 130.2 (>60); Magnesium 1.7 mg/dL (1.9-2.7); Phosphorus 2.4 mg/dL (2.5-5.0); Potassium 4.1 mmol/L (3.5-5.0)
[2020-09-26] MEDS: Mometasone/Formoter 200/5 MDI INH SCH (08:28)
[2020-09-26] MEDS ORDERED: Insulin GLARGINE 100 un/ml 10 ml VIAL SUBCUT SCH (09:00)
[2020-09-26] MEDS: [UNRECOGNIZED DRUG - OTHER] BOTH EARS SCH (10:54)
[2020-09-26] MEDS ORDERED: INSULIN PUMP CONTROLLER SCH (12:00)
[2020-09-26 12:08] VITALS: BP 153/70
== END 2020-09-26 15:30 | disposition home or self-care (01) | DRG 420 ==
LOC: ED 19:50 → ICU 09-25 02:40 → MEDTELE 09-25 18:19
PROVIDERS: ADMIT Internal Medicine; ATTEND Internal Medicine

== ENCOUNTER 2021-04-29 22:36 | Inpatient (IN) ==
[2021-04-30 00:12] LABS: ABS Basophils 0.1 10^3/ul (0-0.2); ABS Eosinophils 0.2 10^3/ul (0-0.6); ABS Monocytes 0.6 10^3/ul (0-0.8); ABS Neutrophils 6.5 10^3/ul (1.5-7.7); Eosinophil % 2.2 %; Hematocrit 39 % (35-47); Hemoglobin 13.1 g/dL (12.0-16.0); Lymphocyte % 12.4 %; Mean Corpuscular HGB Conc 34 g/dL (31-36); Mean Corpuscular Hemoglobin 32 pg (27-31); Mean Corpuscular Volume 94 fL (80-97); Mean Platelet Volume 9.4 fL (7.4-10.4); Platelet Count 199 10^3/uL (150-450); Red Blood Count 4.12 10^6 /uL (3.70-4.87); Red Cell Distribution Width 15 % (10-15); White Blood Count 8.4 10^3/uL (3.5-10.8)
[2021-04-30 00:22] LABS: Albumin 3.8 g/dL (3.2-5.2); Albumin/Globulin Ratio 1.1 (1-3); Calcium 9.7 mg/dL (8.6-10.3); Globulin 3.4 g/dL (2-4); Potassium 4.9 mmol/L (3.5-5.0); Total Bilirubin 0.5 mg/dL (0.2-1.0); Total Protein 7.2 g/dL (6.4-8.9)
[2021-04-30] MEDS ORDERED: Lactated Ringers 1000 ml BAG 1,000 ML IV SCH ×2 (01:00→02:00)
[2021-04-30] MEDS ORDERED: Ondansetron 4 mg VIAL 2 MG/ML 2 ml VIAL IV ONE (01:00)
[2021-04-30 01:01] LABS: Venous Bicarbonate HCO3 15.7 mmol/L (24-28)
[2021-04-30] MEDS ORDERED: Insulin Infusion 100unit/100mL 100 UNIT/100 ML BAG IV ONE (01:03)
[2021-04-30 01:50] LABS: Troponin I 0.01 ng/mL (<0.03)
[2021-04-30 02:07] LABS: Urine Appearance Clear; Urine Bilirubin Negative (Negative); Urine Blood 1+ (Negative); Urine Color Straw; Urine Glucose 3+(>=500 mg/dL) (Negative); Urine Ketones 2+ (Negative); Urine Nitrite Negative (Negative); Urine Protein Negative (Negative); Urine Specific Gravity 1.016 (1.002-1.030); Urine Urobilinogen Negative (Negative)
[2021-04-30 02:32] LABS: Urine Bacteria Absent (Absent); Urine Red Blood Cell Trace(0-2/hpf) (Absent); Urine Squamous Epithelial Cell Present (Absent); Urine White Blood Cell Trace(0-5/hpf) (Absent)
[2021-04-30] MEDS ORDERED: Insulin Infusion 100unit/100mL 100 UNIT/100 ML BAG IV SCH ×2 (02:38→03:00)
[2021-04-30 03:36] LABS: Rapid COVID-19 Molecular Undetected (Undetected)
[2021-04-30 04:14] LABS: Calcium 8.9 mg/dL (8.6-10.3); Potassium 3.8 mmol/L (3.5-5.0)
[2021-04-30] MEDS ORDERED: Insulin GLARGINE 100 un/ml 10 ml VIAL SUBCUT ONE (05:26)
[2021-04-30] MEDS ORDERED: Dextrose 50% Syringe 50 ml 25 GM/50 ML SYRINGE IV PUSH PRN (05:29)
[2021-04-30] MEDS ORDERED: Potassium Chlor 20 meq TAB.ER PO ONE (05:33)
[2021-04-30] MEDS ORDERED: D5W 1/2 NS 1000 ml BAG 1,000 ML IV SCH (06:00)
[2021-04-30 08:34] LABS: Calcium 8.8 mg/dL (8.6-10.3); Potassium 4.3 mmol/L (3.5-5.0)
[2021-04-30] MEDS ORDERED: Cholecalciferol (VIT D3) 1,000 unit TAB PO SCH (09:00)
[2021-04-30] MEDS ORDERED: Heparin 5000 UNITS/ML 1 mL VIAL SUBCUT SCH (09:00)
[2021-04-30 13:25] LABS: Potassium 4.2 mmol/L (3.5-5.0)
[2021-04-30 14:44] VITALS: BP 115/66
[2021-04-30] MEDS ORDERED: Albuterol HFA INHALER 8 gm MDI INH PRN (15:59)
[2021-04-30] MEDS ORDERED: Mometasone/Formoter 200/5 MDI INH SCH (21:00)
[2021-05-01] MEDS ORDERED: cefTRIAXone 1 gm/50 mL NS BAG 1 GM/50 ML BAG IVPB SCH (06:00)
== END 2021-04-30 16:06 | disposition left against medical advice (07) | DRG 420 ==
LOC: ED 22:36 → MEDTELE 04-30 03:19
PROVIDERS: ADMIT Surgery Surgical Critical Care; ATTEND Surgery Surgical Critical Care

== ENCOUNTER 2021-09-23 12:29 | Inpatient (IN) ==
[2021-09-23] MEDS ORDERED: Lactated Ringers 1000 ml BAG 1,000 ML IV ONE ×2 (13:10→15:02)
[2021-09-23] MEDS ORDERED: Ondansetron 4 mg VIAL 2 MG/ML 2 ml VIAL IV ONE (13:10)
[2021-09-23 14:00] LABS: ABS Eosinophils 0.1 10^3/ul (0-0.6); ABS Lymphocytes 0.8 10^3/ul (1.0-4.8); ABS Monocytes 0.5 10^3/ul (0-0.8); ABS Neutrophils 9.5 10^3/ul (1.5-7.7); Eosinophil % 0.7 %; Hematocrit 38 % (35-47); Hemoglobin 12.6 g/dL (12.0-16.0); Lymphocyte % 7.3 %; Mean Corpuscular HGB Conc 34 g/dL (31-36); Mean Corpuscular Hemoglobin 32 pg (27-31); Mean Corpuscular Volume 96 fL (80-97); Mean Platelet Volume 9.3 fL (7.4-10.4); Platelet Count 165 10^3/uL (150-450); Red Blood Count 3.91 10^6 /uL (3.70-4.87); Red Cell Distribution Width 15 % (10-15); White Blood Count 10.9 10^3/uL (3.5-10.8)
[2021-09-23 14:02] LABS: Venous Bicarbonate HCO3 16.4 mmol/L (24-28)
[2021-09-23 14:57] LABS: Albumin 3.8 g/dL (3.2-5.2); Albumin/Globulin Ratio 1.3 (1-3); Calcium 9.6 mg/dL (8.6-10.3); Globulin 2.9 g/dL (2-4); Total Bilirubin 0.5 mg/dL (0.2-1.0); Total Protein 6.7 g/dL (6.4-8.9); eGFR CKD-EPI 82.9 (>60)
[2021-09-23] MEDS ORDERED: Insulin Infusion 100unit/100mL 100 UNIT/100 ML BAG IV ONE ×2 (15:00→17:25)
[2021-09-23] MEDS ORDERED: Dextrose 50% Syringe 50 ml 25 GM/50 ML SYRINGE IV PUSH PRN ×2 (15:45→21:05)
[2021-09-23] MEDS ORDERED: Albuterol HFA INHALER 8 gm MDI INH PRN (16:29)
[2021-09-23] MEDS ORDERED: NORMOSOL-R pH 7.4 1000 mL BAG 1,000 ML IV SCH (17:00)
[2021-09-23 17:31] LABS: PCO2 Arterial 36 mmHg (35-45); PO2 Arterial 81 mmHg (80-100)
[2021-09-23 17:56] LABS: TSH Ultra Thyroid Stim Horm 1.49 mcIU/mL (0.34-5.60)
[2021-09-23 18:41] LABS: Calcium 9.6 mg/dL (8.6-10.3); Magnesium 1.8 mg/dL (1.9-2.7)
[2021-09-23] MEDS ORDERED: Magnesium Sulfate 2 gm BAG 2 GM/50 ML BAG IVPB ONE (18:45)
[2021-09-23 18:46] LABS: Phosphorus 5.3 mg/dL (2.5-5.0); eGFR CKD-EPI 81.7 (>60)
[2021-09-23 19:00] LABS: High Sensitivity Troponin 1 Hr 10 pg/mL (<15)
[2021-09-23] MEDS ORDERED: D5W 1/2 NS 1000 ml BAG 1,000 ML IV SCH (19:00)
[2021-09-23 19:08] LABS: Urine Appearance Clear; Urine Bilirubin Negative (Negative); Urine Blood 1+ (Negative); Urine Color Straw; Urine Glucose 3+(>=500 mg/dL) (Negative); Urine Ketones 2+ (Negative); Urine Nitrite Negative (Negative); Urine Protein 1+(30 mg/dL) (Negative); Urine Specific Gravity 1.022 (1.002-1.030); Urine Urobilinogen Negative (Negative)
[2021-09-23 19:15] LABS: Urine Bacteria 1+ (Absent); Urine Red Blood Cell Trace(0-2/hpf) (Absent); Urine White Blood Cell 2+(11-20/hpf) (Absent)
[2021-09-23 20:46] LABS: Anion Gap 10 mmol/L (2-11); Blood Urea Nitrogen 21 mg/dL (6-24); CO2 Carbon Dioxide 19 mmol/L (22-32); Calcium 8.8 mg/dL (8.6-10.3); Chloride 100 mmol/L (101-111); Glucose 212 mg/dL (70-100); Magnesium 1.9 mg/dL (1.9-2.7); Phosphorus 4.2 mg/dL (2.5-5.0); Sodium 129 mmol/L (135-145); eGFR CKD-EPI 104.8 (>60)
[2021-09-23 21:13] LABS: Potassium, Whole Blood 3.5 mmol/L (3.4-4.5)
[2021-09-23] MEDS ORDERED: Insulin GLARGINE 100 un/ml 10 ml VIAL SUBCUT SCH (21:30)
[2021-09-23] MEDS ORDERED: Potassium Chlor 20 meq TAB.ER PO ONE (21:42)
[2021-09-23] MEDS: Heparin 5000 UNITS/ML 1 mL VIAL SUBCUT SCH (21:59)
[2021-09-24 00:34] LABS: Calcium 8.5 mg/dL (8.6-10.3); Magnesium 1.6 mg/dL (1.9-2.7); Phosphorus 3.6 mg/dL (2.5-5.0); Potassium 4.2 mmol/L (3.5-5.0); eGFR CKD-EPI 105.7 (>60)
[2021-09-24] MEDS ORDERED: Magnesium Sulfate 2 gm BAG 2 GM/50 ML BAG IVPB ONE (00:35)
[2021-09-24 05:42] LABS: Calcium 8.7 mg/dL (8.6-10.3); Magnesium 2.2 mg/dL (1.9-2.7); Phosphorus 3.6 mg/dL (2.5-5.0); Potassium 4.2 mmol/L (3.5-5.0); eGFR CKD-EPI 106.2 (>60)
[2021-09-24] MEDS: Mometasone/Formoter 200/5 MDI INH SCH ×2 (07:52→07:53)
[2021-09-24] MEDS ORDERED: Cholecalciferol (VIT D3) 1,000 unit TAB PO SCH (09:00)
[2021-09-24] MEDS: Heparin 5000 UNITS/ML 1 mL VIAL SUBCUT SCH (10:29)
[2021-09-24 12:35] VITALS: BP 166/79
== END 2021-09-24 12:00 | disposition home or self-care (01) | DRG 420 ==
LOC: ED 12:29 → EDHOLD 15:38 → ICU 18:51
PROVIDERS: ADMIT Surgery Surgical Critical Care; ATTEND Surgery Surgical Critical Care

== ENCOUNTER 2023-06-08 11:37 | Inpatient (IN) ==
[2023-06-08 12:21] LABS: ABS Basophils 0.1 10^3/uL (0.0-0.1); ABS Eosinophils 0.1 10^3/uL (0.0-0.5); ABS Lymphocytes 0.9 10^3/uL (1.0-4.8); ABS Monocytes 0.4 10^3/uL (0.0-0.9); Eosinophil % 1.1 %; Hematocrit 35.2 % (35-45); Hemoglobin 11.4 g/dL (11.5-14.3); Mean Corpuscular Hemoglobin 29.8 pg (27-33); Mean Corpuscular Hgb Conc 32.5 g/dL (31-36); Mean Corpuscular Volume 91.8 fL (80-97); Mean Platelet Volume 9.1 fL (7.5-11.2); Platelet Count 220 10^3/uL (150-450); Red Blood Count 3.83 10^6/uL (3.63-4.92); Red Cell Distribution Width 15.8 % (12-17); White Blood Count 7.4 10^3/uL (3.8-11.8)
[2023-06-08 12:44] LABS: High Sens Troponin Baseline 6 pg/mL (<15)
[2023-06-08 12:48] LABS: ALT 23 U/L (7-52); AST 21 U/L (13-39); Albumin 3.9 g/dL (3.2-5.2); Albumin/Globulin Ratio 1.2 (1-3); Alkaline Phosphatase 94 U/L (35-149); Anion Gap 23 mmol/L (2-16); Blood Urea Nitrogen 29 mg/dL (6-24); C Reactive Protein < 1.00 mg/L (<8.01); CO2 Carbon Dioxide 14 mmol/L (22-32); Calcium 9.6 mg/dL (8.6-10.3); Chloride 95 mmol/L (101-111); Creatine Kinase 73 U/L (10-223); Creatinine, Serum 0.94 mg/dL (0.51-0.95); Globulin 3.3 g/dL (2-4); Glucose 589 mg/dL (70-100); Magnesium 1.8 mg/dL (1.9-2.7); Potassium 4.6 mmol/L (3.5-5.0); Sodium 132 mmol/L (135-145); Total Bilirubin 0.4 mg/dL (0.2-1.0); Total Protein 7.2 g/dL (6.4-8.9); eGFR CKD-EPI 69.5 (>60)
[2023-06-08] MEDS ORDERED: Dextrose 50% Syringe 50 ml 25 GM/50 ML SYRINGE IV PUSH PRN ×3 (12:49→23:12)
[2023-06-08] MEDS ORDERED: NS 0.9% 1000 ml BAG 1,000 ML IV ONE (12:54)
[2023-06-08 12:56] LABS: Alcohol, S < 13 mg/dL (<13)
[2023-06-08 13:09] LABS: TSH Ultra Thyroid Stim Horm 1.32 mcIU/mL (0.34-5.60)
[2023-06-08] MEDS: Insulin Infusion 100unit/100mL 100 UNIT/100 ML BAG IV ONE ×2 (13:38→23:46)
[2023-06-08 14:01] LABS: Urine Appearance Cloudy; Urine Bilirubin Negative (Negative); Urine Blood 1+ (Negative); Urine Color Yellow; Urine Glucose 3+(>=500 mg/dL) (Negative); Urine Ketones 2+ (Negative); Urine Nitrite Negative (Negative); Urine Protein 1+(30 mg/dL) (Negative); Urine Specific Gravity 1.017 (1.002-1.030); Urine Urobilinogen Negative (Negative)
[2023-06-08] MEDS ORDERED: NORMOSOL-R pH 7.4 1000 mL BAG 1,000 ML IV ONE (14:05)
[2023-06-08 14:12] LABS: Urine Bacteria Absent (Absent); Urine Red Blood Cell Trace(0-2/hpf) (Absent); Urine Squamous Epithelial Cell Present (Absent); Urine White Blood Cell Absent (Absent)
[2023-06-08 14:13] LABS: High Sensitivity Troponin 1 Hr 7 pg/mL (<15)
[2023-06-08] MEDS ORDERED: Acetaminop/Codeine 300mg/30mg TAB PO PRN (14:17)
[2023-06-08] MEDS ORDERED: Albuterol HFA INHALER 8 gm MDI INH PRN (14:17)
[2023-06-08 15:08] LABS: ABS Lymphocytes 0.8 10^3/uL (1.0-4.8); ABS Monocytes 0.5 10^3/uL (0.0-0.9); ABS Neutrophils 7.5 10^3/uL (1.5-7.6); Eosinophil % 0.2 %; Hematocrit 32.2 % (35-45); Hemoglobin 10.6 g/dL (11.5-14.3); Lymphocyte % 8.5 %; Mean Corpuscular Hemoglobin 29.8 pg (27-33); Mean Corpuscular Hgb Conc 32.9 g/dL (31-36); Mean Corpuscular Volume 90.7 fL (80-97); Mean Platelet Volume 8.4 fL (7.5-11.2); Platelet Count 207 10^3/uL (150-450); Red Blood Count 3.55 10^6/uL (3.63-4.92); Red Cell Distribution Width 15.4 % (12-17); White Blood Count 8.8 10^3/uL (3.8-11.8)
[2023-06-08 15:26] LABS: Albumin 3.8 g/dL (3.2-5.2); Albumin/Globulin Ratio 1.3 (1-3); Calcium 8.7 mg/dL (8.6-10.3); Creatinine, Serum 0.87 mg/dL (0.51-0.95); Magnesium 1.7 mg/dL (1.9-2.7); Phosphorus 3.7 mg/dL (2.5-5.0); Potassium 3.8 mmol/L (3.5-5.0); Total Bilirubin 0.2 mg/dL (0.2-1.0); Total Protein 6.8 g/dL (6.4-8.9); eGFR CKD-EPI 76.2 (>60)
[2023-06-08 15:46] LABS: TSH Ultra Thyroid Stim Horm 0.99 mcIU/mL (0.34-5.60)
[2023-06-08 15:46] LABS: Glucose Confirmatory 445 mg/dL (70-100)
[2023-06-08] MEDS ORDERED: NORMOSOL-R pH 7.4 1000 mL BAG 1,000 ML IV SCH (16:00)
[2023-06-08 16:40] LABS: High Sensitivity Troponin 1 Hr 7 pg/mL (<15)
[2023-06-08] MEDS: D5W 1/2 NS KCl 20 meq 1000 ml 1,000 ML IV SCH (18:27)
[2023-06-08 18:40] LABS: Calcium 8.4 mg/dL (8.6-10.3); Creatinine, Serum 0.65 mg/dL (0.51-0.95); Magnesium 1.6 mg/dL (1.9-2.7); Phosphorus 2.8 mg/dL (2.5-5.0); Potassium 3.7 mmol/L (3.5-5.0); eGFR CKD-EPI 100.7 (>60)
[2023-06-08] MEDS ORDERED: Insulin GLARGINE 100 un/ml 10 ml VIAL SUBCUT ONE (18:55)
[2023-06-08] MEDS ORDERED: D5W 1/2 NS 1000 ml BAG 1,000 ML IV SCH (19:00)
[2023-06-08] MEDS: Mometasone/Formoter 200/5 MDI INH SCH (19:13)
[2023-06-08 20:57] LABS: Urine Appearance Cloudy; Urine Bilirubin Negative (Negative); Urine Blood 1+ (Negative); Urine Color Yellow; Urine Glucose 3+(>=500 mg/dL) (Negative); Urine Ketones 2+ (Negative); Urine Nitrite Negative (Negative); Urine Protein 1+(30 mg/dL) (Negative); Urine Specific Gravity 1.015 (1.002-1.030); Urine Urobilinogen Negative (Negative)
[2023-06-08 20:59] LABS: Urine Bacteria Absent (Absent); Urine Red Blood Cell 1+(3-5/hpf) (Absent); Urine Squamous Epithelial Cell Present (Absent); Urine White Blood Cell Absent (Absent)
[2023-06-08 22:52] LABS: Calcium 7.6 mg/dL (8.6-10.3); Creatinine, Serum 0.79 mg/dL (0.51-0.95); Magnesium 1.5 mg/dL (1.9-2.7); Phosphorus 3.1 mg/dL (2.5-5.0); Potassium 4.9 mmol/L (3.5-5.0); eGFR CKD-EPI 85.6 (>60)
[2023-06-08 22:55] LABS: Glucose Confirmatory 421 mg/dL (70-100)
[2023-06-08] MEDS ORDERED: Insulin Infusion 100unit/100mL 100 UNIT/100 ML BAG IV SCH (23:45)
[2023-06-09] MEDS: D5W 1/2 NS KCl 20 meq 1000 ml 1,000 ML IV SCH ×2 (00:18→05:51)
[2023-06-09 00:34] LABS: Glucose Confirmatory 450 mg/dL (70-100)
[2023-06-09 01:25] LABS: Glucose Confirmatory 432 mg/dL (70-100)
[2023-06-09 02:31] LABS: Creatinine, Serum 0.78 mg/dL (0.51-0.95); Magnesium 1.7 mg/dL (1.9-2.7); Phosphorus 1.8 mg/dL (2.5-5.0); Potassium 4.1 mmol/L (3.5-5.0); eGFR CKD-EPI 86.9 (>60)
[2023-06-09 02:33] LABS: Glucose Confirmatory 497 mg/dL (70-100)
[2023-06-09 04:16] LABS: ABS Basophils 0.1 10^3/uL (0.0-0.1); ABS Eosinophils 0.1 10^3/uL (0.0-0.5); ABS Lymphocytes 1.7 10^3/uL (1.0-4.8); ABS Monocytes 0.7 10^3/uL (0.0-0.9); ABS Neutrophils 5.4 10^3/uL (1.5-7.6); ABS Nucleated RBC 0.01 10^3/ul; Eosinophil % 1.4 %; Hematocrit 23.5 % (35-45); Hemoglobin 8.1 g/dL (11.5-14.3); Lymphocyte % 20.7 %; Mean Corpuscular Hemoglobin 30.6 pg (27-33); Mean Corpuscular Hgb Conc 34.5 g/dL (31-36); Mean Corpuscular Volume 88.6 fL (80-97); Mean Platelet Volume 8.5 fL (7.5-11.2); Nucleated Red Blood Cells % 0.1 %/100WBC (0.0-0.8); Platelet Count 163 10^3/uL (150-450); Red Blood Count 2.65 10^6/uL (3.63-4.92); Red Cell Distribution Width 15.2 % (12-17)
[2023-06-09 04:34] LABS: Glucose Confirmatory 466 mg/dL (70-100)
[2023-06-09 04:35] LABS: Calcium 7.5 mg/dL (8.6-10.3); Creatinine, Serum 0.71 mg/dL (0.51-0.95); Magnesium 1.6 mg/dL (1.9-2.7); Phosphorus 1.5 mg/dL (2.5-5.0); Potassium 4.4 mmol/L (3.5-5.0); eGFR CKD-EPI 97.3 (>60)
[2023-06-09] MEDS ORDERED: Insulin Infusion 100unit/100mL 100 UNIT/100 ML BAG IV SCH (05:55)
[2023-06-09] MEDS: SPIRIVA Respimat (tiotropium) 2.5 mcg/inh Inhaler INH SCH (07:45)
[2023-06-09] MEDS: Mometasone/Formoter 200/5 MDI INH SCH ×2 (07:48→19:20)
[2023-06-09] MEDS ORDERED: Dextrose 50% Syringe 50 ml 25 GM/50 ML SYRINGE IV PUSH PRN (08:47)
[2023-06-09 12:15] LABS: Calcium 8.3 mg/dL (8.6-10.3); Creatinine, Serum 0.62 mg/dL (0.51-0.95); Magnesium 1.8 mg/dL (1.9-2.7); Phosphorus 2.3 mg/dL (2.5-5.0); Potassium 4.2 mmol/L (3.5-5.0); eGFR CKD-EPI 101.9 (>60)
[2023-06-09] MEDS ORDERED: Magnesium Sulfate 2 gm BAG 2 GM/50 ML BAG IVPB ONE (13:07)
[2023-06-09 14:15] LABS: Calcium 8.5 mg/dL (8.6-10.3); Creatinine, Serum 0.62 mg/dL (0.51-0.95); Magnesium 1.8 mg/dL (1.9-2.7); Phosphorus 2.2 mg/dL (2.5-5.0); Potassium 4.3 mmol/L (3.5-5.0); eGFR CKD-EPI 101.9 (>60)
[2023-06-10 04:20] LABS: Hematocrit 26.7 % (35-45); Hemoglobin 9.2 g/dL (11.5-14.3); Mean Corpuscular Hemoglobin 30.5 pg (27-33); Mean Corpuscular Hgb Conc 34.4 g/dL (31-36); Mean Corpuscular Volume 88.5 fL (80-97); Mean Platelet Volume 8.5 fL (7.5-11.2); Platelet Count 173 10^3/uL (150-450); Red Blood Count 3.01 10^6/uL (3.63-4.92); Red Cell Distribution Width 15.5 % (12-17); White Blood Count 6.7 10^3/uL (3.8-11.8)
[2023-06-10 04:43] LABS: Calcium 8.8 mg/dL (8.6-10.3); Creatinine, Serum 0.56 mg/dL (0.51-0.95); eGFR CKD-EPI 104.4 (>60)
[2023-06-10] MEDS: SPIRIVA Respimat (tiotropium) 2.5 mcg/inh Inhaler INH SCH (08:00)
[2023-06-10] MEDS: Mometasone/Formoter 200/5 MDI INH SCH (08:01)
[2023-06-10 08:05] VITALS: BP 137/67
== END 2023-06-10 10:27 | disposition home or self-care (01) | DRG 813 ==
LOC: ED 11:37 → EDHOLD 14:11 → ICU 15:13
PROVIDERS: ADMIT Student in an Organized Health Care Education/Training Program; ATTEND Internal Medicine Critical Care Medicine